=== PATIENT | female | born 1955 | race Caucasian/White ===

== ENCOUNTER → 2017-12-10 11:24 | Outpatient (CLI) | payer MEDICAID, SELFPAY ==
[2017-12-10 13:46] LABS: AST(SGOT) 18 U/L (15-37); Alanine Aminotransfer ALT/SGPT 34 U/L (13-56); Albumin, Serum 3.7 g/dL (3.2-5.0); Alkaline Phosphatase 77 U/L (45-117); Anion Gap 7 (5-15); BUN 18 mg/dL (7-18); BUN/Creat Ratio 34.9 RATIO (10-20); Calcium,Total 8.9 mg/dL (8.5-10.1); Chloride 105 mmol/L (98-107); Cholesterol 177 mg/dL (200); Creatinine, Serum 0.52 mg/dL (0.55-1.02); EST Glomerular Filtration Rate 129 mL/min (>60); Est Glom Filt Rate - Afr Amer 156 mL/min (>60); Globulin 3.6 g/dL (2.2-4.2); Glucose 98 mg/dL (74-106); High Density Lipoprotein 49 mg/dL; Potassium 4.1 mmol/L (3.5-5.1); Protein, Total 7.3 g/dL (6.4-8.2); Sodium Level 140 mmol/L (136-145); Triglycerides 140 mg/dL; Very Low Density Lipoprotein 28 mg/dL (5-40)
[2017-12-10 13:51] LABS: Hemoglobin A1c 6.2 % (4.2-6.3)
[2017-12-10 13:53] LABS: Vitamin D,25 Hydroxy 57.2 ng/mL (29.95-100.01)
== END ==
PROVIDERS: Family Provider Nurse Practitioner Family; PCP Nurse Practitioner Family; Visit Provider Nurse Practitioner Family
DX: E11.9 Type 2 diabetes mellitus without complications (principal); E78.5 Hyperlipidemia, unspecified; E55.9 Vitamin D deficiency, unspecified
CPT/HCPCS: 36415; 80053; 80061; 82306; 83036

== ENCOUNTER → 2018-06-07 16:06 | Outpatient (CLI) | payer MEDICAID, SELFPAY ==
[2018-06-10 14:26] LABS: HPV Reflexed? NOT INDICATED
== END ==
PROVIDERS: Visit Provider Obstetrics & Gynecology
DX: Z12.4 Encounter for screening for malignant neoplasm of cervix (principal)
CPT/HCPCS: 88175; G0145

== ENCOUNTER → 2018-06-20 12:44 | Outpatient (CLI) | payer MEDICAID, SELFPAY ==
--- NOTE | 2018-06-20 12:47 | BI_ITS ---
MAMMOGRAPHY - BILATERAL SCREENING REASON FOR EXAM: Female, 63 years old. Routine annual screening examination. PERTINENT HISTORY: Personal history of breast cancer. Prior right lumpectomy with radiation therapy. The patient complains of tenderness at the lumpectomy site. TECHNIQUE: Digital bilateral breast lizbet (3D mammographic acquisition) in the CC and MLO projections. 2-D mediolateral oblique (MLO) and craniocaudad (CC) views of both breasts were obtained. CAD: Full Field Digital Mammography with Computer Added Detection was performed. COMPARISON: Comparison is made with prior study dated June 17, 2017 and December 09, 2016. FINDINGS: Breast Composition: There are scattered areas of fibroglandular density. The patient is status post right lumpectomy with resultant postoperative scarring and architectural distortion in the deep upper portion of the right breast. There is evidence of overlying skin thickening. There has been essentially no change. A surgical clip is seen in the right axillary region. No other significant abnormalities are identified. There has been no significant change since the prior study. BI/SCREENING MAMM (CAD), BILAT IMPRESSION: Stable bilateral screening mammogram. Yearly follow-up mammogram recommended. (A) ASSESSMENT CATEGORY: BIRADS Category 2: Benign. A letter regarding these results will be sent to the patient by the facility within 30 days. Approximately 10% of breast cancers are not detected by mammography. A normal mammogram should not delay biopsy of a clinically suspicious abnormality. [id number] Electronically Signed: Jose Armando Cronin MD at 15:18 EDT Tel [phone], Service support ,
== END ==
PROVIDERS: Visit Provider Internal Medicine Hematology & Oncology
DX: Z12.31 Encounter for screening mammogram for malignant neoplasm of breast (principal)
CPT/HCPCS: 77063; 77067

== ENCOUNTER → 2018-09-16 12:56 | Outpatient (CLI) | payer MEDICAID, SELFPAY ==
[2018-09-16 14:31] LABS: Hemoglobin A1c 6.5 % (4.2-6.3)
[2018-09-16 14:47] LABS: ALB/GLOB Ratio 1.1 RATIO (0.9-2.4); AST(SGOT) 13 U/L (15-37); Alanine Aminotransfer ALT/SGPT 32 U/L (13-56); Albumin, Serum 3.8 g/dL (3.2-5.0); Alkaline Phosphatase 74 U/L (45-117); Anion Gap 7 (5-15); BUN 17 mg/dL (7-18); BUN/Creat Ratio 33.3 RATIO (10-20); Calcium,Total 8.6 mg/dL (8.5-10.1); Chloride 107 mmol/L (98-107); Cholesterol 179 mg/dL (200); Creatinine, Serum 0.51 mg/dL (0.55-1.02); EST Glomerular Filtration Rate 130 mL/min (>60); Est Glom Filt Rate - Afr Amer 157 mL/min (>60); Globulin 3.6 g/dL (2.2-4.2); Glucose 106 mg/dL (74-106); High Density Lipoprotein 48 mg/dL; Potassium 3.8 mmol/L (3.5-5.1); Protein, Total 7.4 g/dL (6.4-8.2); Sodium Level 141 mmol/L (136-145); Triglycerides 91 mg/dL; Very Low Density Lipoprotein 18 mg/dL (5-40)
[2018-09-16 14:49] LABS: Microalbumin,Random Urine 65.8 mg/L (NO RANGE EST.); Microalbumin:Creatinine Ratio 65.9 mg/g CRE (<30 mg/g CRE)
[2018-09-16 14:53] LABS: Vitamin D,25 Hydroxy 79.8 ng/mL (29.95-100.01)
== END ==
PROVIDERS: Referring Provider Nurse Practitioner Family; Visit Provider Nurse Practitioner Family
DX: E11.9 Type 2 diabetes mellitus without complications (principal); E78.5 Hyperlipidemia, unspecified; E55.9 Vitamin D deficiency, unspecified
CPT/HCPCS: 36415; 80053; 80061; 82043; 82306; 82570; 83036

== ENCOUNTER → 2019-03-14 10:16 | Outpatient (CLI) | payer MEDICAID, SELFPAY ==
[2018-09-22 12:59] VITALS: BMI 34.0
[2019-03-14 10:54] LABS: Absolute Neutrophil Count 4.1 X10^3/uL (2.0-7.7); Basophil# 0.02 X10^3/uL; Basophil% 0.3 % (0-1); Eosinophil# 0.05 X10^3/uL; Eosinophils% 0.8 % (0-5); Hemoglobin 15.5 g/dl (12.0-15.0); Mean Corpuscular Hgb 30.3 pg (27.0-32.0); Mean Corpuscular Volume 91.8 fL (81-99); Mean Platelet Vol. 9.5 fl (6.2-12.0); Monocyte# 0.52 X10^3/uL; Monocyte% 8.5 % (0-10); Neutrophil % 67.2 % (47-70); Platelet Count 257 K/mm3 (150-450); RBC Distribution Width SD 47.1 fl (35.1-43.9); Red Blood Count 5.12 M/mm3 (4.2-5.4); White Blood Count 6.1 K/mm3 (4.4-11.0)
[2019-03-14 10:55] LABS: POSITIVE COUNT NO; POSITIVE DIFFERENTIAL NO; POSITIVE MORPHOLOGY NO
[2019-03-14 11:27] LABS: ALB/GLOB Ratio 0.9 RATIO (0.9-2.4); AST(SGOT) 13 U/L (15-37); Alanine Aminotransfer ALT/SGPT 24 U/L (13-56); Albumin, Serum 3.5 g/dL (3.2-5.0); Alkaline Phosphatase 81 U/L (45-117); Anion Gap 8 (5-15); BUN 17 mg/dL (7-18); BUN/Creat Ratio 28.2 RATIO (10-20); Calcium,Total 8.7 mg/dL (8.5-10.1); Chloride 107 mmol/L (98-107); EST Glomerular Filtration Rate 107 mL/min (>60); Est Glom Filt Rate - Afr Amer 130 mL/min (>60); Globulin 3.7 g/dL (2.2-4.2); Glucose 118 mg/dL (74-106); Potassium 3.9 mmol/L (3.5-5.1); Protein, Total 7.2 g/dL (6.4-8.2); Sodium Level 141 mmol/L (136-145)
[2019-03-14 11:30] LABS: Vitamin D,25 Hydroxy 69.8 ng/mL (29.95-100.01)
== END ==
PROVIDERS: Family Provider Nurse Practitioner Family; PCP Nurse Practitioner Family; Referring Provider Nurse Practitioner Family; Visit Provider Nurse Practitioner Family
DX: E55.9 Vitamin D deficiency, unspecified (principal); I10 Essential (primary) hypertension
CPT/HCPCS: 36415; 80053; 82306; 85025

== ENCOUNTER → 2019-03-23 13:43 | Outpatient (CLI) | payer MEDICAID, SELFPAY ==
[2019-03-23 13:10] VITALS: BMI 32.8
--- NOTE | 2019-03-23 13:46 | US_ITS ---
STUDY: ULTRASOUND BREAST - RIGHT REASON FOR EXAM: Female, 63 years old. Pain in the right breast at the lumpectomy site.. TECHNIQUE: Axial and longitudinal images of the RIGHT breast were performed with a high resolution ultrasound transducer. COMPARISON: Comparison is made with prior mammogram done earlier today and prior ultrasound of the right breast dated June 17, 2017. FINDINGS: RIGHT Breast: There is a 1.9 cm x 2.5 cm x 1.5 cm irregular hypoechoic nodule with posterior acoustical shadowing at the lumpectomy site. This is essentially unchanged as compared to prior study and most likely represents postoperative scarring although a tissue diagnosis is recommended for further evaluation. Superior to the site of incision, there is a 5 mm x 5 mm x 4 mm well-defined hypoechoic nodule. This has the appearance of a small lymph node. US/Breast Limited Unilateral IMPRESSION: The area of pain corresponds to a 1.9 cm x 2.5 cm x 1.5 cm irregular hypoechoic nodule with posterior acoustical shadowing at the lumpectomy site. This is essentially unchanged although tissue diagnosis is recommended for further evaluation with a history of pain. ASSESSMENT CATEGORY: BIRADS Category 4: Suspicious - Biopsy Should Be Considered. A letter regarding these results will be sent to the patient by the facility within 30 days. Electronically Signed: Jose Armando Cronin, at 8:47 EDT , Service support ,
--- NOTE | 2019-03-23 13:46 | BI_ITS ---
MAMMOGRAPHY - UNILATERAL DIAGNOSTIC: RIGHT BREAST REASON FOR EXAM: Female, 63 years old. Pain and tenderness at the lumpectomy site of the right breast. PERTINENT HISTORY: Personal history of breast cancer. TECHNIQUE: Digital unilateral breast lizbet (3D mammographic acquisition) in the CC and MLO projections. 2-D mediolateral oblique (MLO) and craniocaudad (CC) views of both breasts were obtained. CAD: Full Field Digital Mammography with Computer Added Detection was performed. COMPARISON: Comparison is made with prior study dated June 20, 2018 and June 17, 2017. FINDINGS: Breast Composition: There are scattered areas of fibroglandular density. Stable postoperative scarring and architectural distortion in the deep upper midportion of the right breast. This corresponds to the lumpectomy site with overlying breast deformity and skin thickening. There has been essentially no change. No other significant abnormalities are identified. There has been no significant change since the prior study. BI/DIAG MAMM W/CAD, UNILAT IMPRESSION: Stable unilateral diagnostic mammogram. With the patient's history of a pain at the operative site, correlation with ultrasound is recommended. ASSESSMENT CATEGORY: BIRADS Category 0: Incomplete. Need additional imaging evaluation. A letter regarding these results will be sent to the patient by the facility within 30 days. Approximately 10% of breast cancers are not detected by mammography. A normal mammogram should not delay biopsy of a clinically suspicious abnormality. Electronically Signed: Jose Armando Cronin, at 15:43 EDT , Service support ,
== END ==
PROVIDERS: Family Provider Nurse Practitioner Family; PCP Nurse Practitioner Family; Referring Provider Internal Medicine Hematology & Oncology; Visit Provider Internal Medicine Hematology & Oncology
DX: C50.911 Malignant neoplasm of unspecified site of right female breast (principal); R52 Pain, unspecified; N64.59 Other signs and symptoms in breast
CPT/HCPCS: 76642; 77065

== ENCOUNTER → 2019-04-01 10:45 | Outpatient (CLI) | payer MEDICAID, SELFPAY ==
--- NOTE | 2019-04-01 08:30 | BRBX_PTH ---
PATIENT: DAVIN ARRIOLA LOC: [facility] U#:[id number] AGE/SX: 70/F ROOM: RE04/01/[address]: Dr. Aries Davidson MD : 1955 BED: DIS: SPEC #: [id number] RECD: 04/01/19 10:25 STATUS: [place] SIEGEL #: [id number] ARIELA: 04/01/19 08:[address]: Aries Davidson DEPT: SURGICAL PATHOLOGY RECD BY: Hammad Leonard ENTERED: 04/03/19 10:05 SP TYPE: BREAST BX FABIÁN DR: Ernesto Rubin, DIRECTOR OF NURSES REGISTRY-C Tissues: Right breast, NOS Procedures: Surgery Specimen Level IV HEADER OPERATION: Ultrasound guided needle core biopsy PRE-OP DIAGNOSIS: Abnormal mammogram of right breast, R92.8 TISSUE SUBMITTED: Right breast biopsy ISCHMEIC TIME: <1 minute FIXATION TIME: 32 hours MICROSCOPIC DIAGNOSIS Right breast, site of mammographic abnormality, ultrasound-guided needle core biopsy: Fibroadipose tissue with focal fat necrosis, associated chronic hemorrhage and hyalinizing stromal fibrosclerosis. No atypia or recurrent neoplasm found. CE:john 04/04/19 COMMENT Case has been reviewed in consultation with Dr. Maria who concurs with the above diagnosis. IDC:FA MICROSCOPIC DESCRIPTION Slides are reviewed. GROSS DESCRIPTION Received in fixative is one container labeled with the patient's name and designated right breast biopsy. The specimen consists of multiple pink-mack cylindrical core biopsy fragments measuring from 0.4 to 1 cm in length and 0.2 cm in diameter. The specimen is filtered and totally submitted in one cassette. / FA:john 04/03/19 TC:3 CPT: 22684
[2019-04-01 09:09] VITALS: BMI 31.9
== END ==
PROVIDERS: Family Provider Nurse Practitioner Family; PCP Nurse Practitioner Family; Referring Provider Surgery; Visit Provider Surgery
DX: R92.8 Other abnormal and inconclusive findings on diagnostic imaging of breast (principal)
CPT/HCPCS: 88305

== ENCOUNTER → 2019-04-19 09:48 | Outpatient (CLI) | payer MEDICAID, SELFPAY ==
[2019-04-01 09:09] VITALS: BMI 31.9
--- NOTE | 2019-04-19 09:52 | BI_ITS ---
MAMMOGRAPHY - UNILATERAL DIAGNOSTIC: RIGHT BREAST REASON FOR EXAM: Female, 64 years old. History of recent right ultrasound-guided breast biopsy. PERTINENT HISTORY: Personal history of breast cancer. TECHNIQUE: Mediolateral oblique and craniocaudad views of the right breast were obtained. CAD: Full Field Digital Mammography with Computer Added Detection was performed. COMPARISON: Comparison is made with prior mammogram dated March 23, 2019 and June 20, 2018. FINDINGS: Breast Composition: There are scattered areas of fibroglandular density. Stable postoperative scarring and architectural distortion in the deep upper midportion of the right breast. A tissue clip marker is seen at the biopsy site. No other significant abnormalities are identified. BI/DIAG MAMM W/CAD, UNILAT IMPRESSION: Stable unilateral diagnostic mammogram. One year follow-up mammogram recommended. (A) ASSESSMENT CATEGORY: BIRADS Category 2: Benign. A letter regarding these results will be sent to the patient by the facility within 30 days. Approximately 10% of breast cancers are not detected by mammography. A normal mammogram should not delay biopsy of a clinically suspicious abnormality. Electronically Signed: Jose Armando Cronin, at 13:45 EDT , Service support ,
== END ==
PROVIDERS: Family Provider Nurse Practitioner Family; PCP Nurse Practitioner Family; Referring Provider Surgery; Visit Provider Surgery
DX: R92.8 Other abnormal and inconclusive findings on diagnostic imaging of breast (principal)
CPT/HCPCS: 77065

== ENCOUNTER → 2019-06-29 11:23 | Outpatient (CLI) | payer MEDICAID, SELFPAY ==
[2019-04-01 09:09] VITALS: BMI 31.9
--- NOTE | 2019-06-29 11:33 | BI_ITS ---
MAMMOGRAPHY - BILATERAL SCREENING REASON FOR EXAM: Female, 64 years old. Routine annual screening examination. PERTINENT HISTORY: Personal history of breast cancer. Prior right lumpectomy with radiation therapy. Occasional right breast tenderness. TECHNIQUE: Digital bilateral breast milagro (3D mammographic acquisition) in the CC and MLO projections. 2-D mediolateral oblique (MLO) and craniocaudad (CC) views of both breasts were obtained. CAD: Full Field Digital Mammography with Computer Added Detection was performed. COMPARISON: Comparison is made with prior examination of April 19, 2019 and March 23, 2019. FINDINGS: Breast Composition: There are scattered areas of fibroglandular density. There are no dominant masses or suspicious calcifications. Stable architectural deformity and overlying skin thickening in the deep upper central portion of the right breast in keeping with prior lumpectomy surgery. Stable benign-appearing left axillary lymph node. No other significant abnormalities are identified. There has been no significant change since the prior study. BI/SCREEN MAMM (CAD) W/MILAGRO BILAT IMPRESSION: Stable bilateral screening mammogram. Yearly follow-up mammogram recommended. (A) ASSESSMENT CATEGORY: BIRADS Category 2: Benign. A letter regarding these results will be sent to the patient by the facility within 30 days. Approximately 10% of breast cancers are not detected by mammography. A normal mammogram should not delay biopsy of a clinically suspicious abnormality. [id number] Electronically Signed: Jose Armando Cronin, at 15:06 EDT , Service support ,
== END ==
PROVIDERS: Family Provider Nurse Practitioner Family; PCP Nurse Practitioner Family; Referring Provider Internal Medicine Hematology & Oncology; Visit Provider Internal Medicine Hematology & Oncology
DX: Z12.31 Encounter for screening mammogram for malignant neoplasm of breast (principal); Z85.3 Personal history of malignant neoplasm of breast
CPT/HCPCS: 77063; 77067

== ENCOUNTER → 2019-09-13 11:47 | Outpatient (CLI) | payer MEDICAID, SELFPAY ==
[2019-04-01 09:09] VITALS: BMI 31.9
[2019-09-13 12:55] LABS: Absolute Lymphocyte Count 1.36 X10^3/uL (0.83-4.51); Absolute Neutrophil Count 4.1 X10^3/uL (2.0-7.7); Basophil# 0.03 X10^3/uL; Basophil% 0.5 % (0-1); Eosinophil# 0.14 X10^3/uL; Eosinophils% 2.3 % (0-5); Hematocrit 46.4 % (37-47); Hemoglobin 14.8 g/dL (12.0-15.0); Lymphocyte # 1.36 X10^3/ul (4.0); Mean Corp Hgb Conc 31.9 g/dL (32-36); Mean Corpuscular Hgb 29.4 pg (27.0-32.0); Mean Corpuscular Volume 92.2 fL (81-99); Mean Platelet Vol. 9.4 fl (6.2-12.0); Monocyte# 0.56 X10^3/uL; Monocyte% 9.1 % (0-10); NRBC Flagged by Analyzer 0 % (0-5); Neutrophil # 4.06 X10^3/uL (2.7-7.7); Neutrophil % 65.6 % (47-70); Platelet Count 283 K/mm3 (150-450); RBC Distribution Width CV 13.6 % (11.6-14.6); RBC Distribution Width SD 46.4 fl (35.1-43.9); Red Blood Count 5.03 M/mm3 (4.2-5.4); White Blood Count 6.2 K/mm3 (4.4-11.0)
[2019-09-13 13:19] LABS: Hemoglobin A1c 6.4 % (4.2-6.3)
[2019-09-13 13:21] LABS: ALB/GLOB Ratio 1.1 RATIO (0.9-2.4); AST(SGOT) 14 U/L (15-37); Alanine Aminotransfer ALT/SGPT 31 U/L (13-56); Albumin, Serum 3.7 g/dL (3.2-5.0); Alkaline Phosphatase 81 U/L (45-117); Anion Gap 5 (5-15); BUN 17 mg/dL (7-18); BUN/Creat Ratio 31.6 RATIO (10-20); Calcium,Total 8.6 mg/dL (8.5-10.1); Chloride 107 mmol/L (98-107); Creatinine, Serum 0.54 mg/dL (0.55-1.02); EST Glomerular Filtration Rate 122 mL/min (>60); Est Glom Filt Rate - Afr Amer 148 mL/min (>60); Globulin 3.5 g/dL (2.2-4.2); Glucose 100 mg/dL (74-106); Potassium 4.1 mmol/L (3.5-5.1); Protein, Total 7.2 g/dL (6.4-8.2); Sodium Level 141 mmol/L (136-145)
[2019-09-13 13:23] LABS: Vitamin D,25 Hydroxy 67.7 ng/mL (29.95-100.01)
== END ==
PROVIDERS: Family Provider Nurse Practitioner Family; PCP Nurse Practitioner Family; Referring Provider Nurse Practitioner Family; Visit Provider Nurse Practitioner Family
DX: I10 Essential (primary) hypertension (principal); E11.9 Type 2 diabetes mellitus without complications; E55.9 Vitamin D deficiency, unspecified
CPT/HCPCS: 36415; 80053; 82306; 83036; 85025

== ENCOUNTER → 2020-03-29 11:57 | Outpatient (CLI) | payer MEDICAID, SELFPAY ==
[2019-10-26 14:38] VITALS: BMI 33.6
[2020-03-29 12:26] LABS: Hematocrit 48.7 % (37-47); Hemoglobin 15.4 g/dL (12.0-15.0); Mean Corp Hgb Conc 31.6 g/dL (32-36); Mean Corpuscular Hgb 29.7 pg (27.0-32.0); Mean Platelet Vol. 9.4 fl (6.2-12.0); Platelet Count 278 K/mm3 (150-450); RBC Distribution Width CV 13.2 % (11.6-14.6); RBC Distribution Width SD 45.2 fl (35.1-43.9); Red Blood Count 5.18 M/mm3 (4.2-5.4); White Blood Count 6.6 K/mm3 (4.4-11.0)
[2020-03-29 12:54] LABS: AST(SGOT) 15 U/L (15-37); Alanine Aminotransfer ALT/SGPT 47 U/L (13-56); Albumin, Serum 3.8 g/dL (3.2-5.0); Alkaline Phosphatase 80 U/L (45-117); Anion Gap 6 (5-15); BUN 19 mg/dL (7-18); BUN/Creat Ratio 30.4 RATIO (10-20); Chloride 105 mmol/L (98-107); Cholesterol 271 mg/dL (200); Creatinine, Serum 0.62 mg/dL (0.55-1.02); EST Glomerular Filtration Rate 103 mL/min (>60); Est Glom Filt Rate - Afr Amer 124 mL/min (>60); Globulin 3.8 g/dL (2.2-4.2); Glucose 113 mg/dL (74-106); High Density Lipoprotein 50 mg/dL; Potassium 4.3 mmol/L (3.5-5.1); Protein, Total 7.6 g/dL (6.4-8.2); Sodium Level 140 mmol/L (136-145); Triglycerides 142 mg/dL; Very Low Density Lipoprotein 28 mg/dL (5-40)
[2020-03-29 13:07] LABS: Hemoglobin A1c 6.1 % (3.8-5.6)
== END ==
PROVIDERS: PCP Nurse Practitioner Family; Referring Provider Nurse Practitioner Family; Visit Provider Nurse Practitioner Family
DX: I10 Essential (primary) hypertension (principal); E78.00 Pure hypercholesterolemia, unspecified; E11.9 Type 2 diabetes mellitus without complications; E55.9 Vitamin D deficiency, unspecified
CPT/HCPCS: 36415; 80053; 80061; 82306; 83036; 85027

== ENCOUNTER → 2020-07-02 09:36 | Outpatient (CLI) | payer MEDICAID, SELFPAY ==
[2020-04-25 14:13] VITALS: BMI 34.8
--- NOTE | 2020-07-02 09:37 | BI_ITS ---
MAMMOGRAPHY - BILATERAL SCREENING REASON FOR EXAM: Female, 65 years old. Routine annual screening examination. PERTINENT HISTORY: Personal history of breast cancer. Prior right lumpectomy and radiation therapy. TECHNIQUE: Digital bilateral breast milagro (3D mammographic acquisition) in the CC and MLO projections. 2-D mediolateral oblique (MLO) and craniocaudad (CC) views of both breasts were obtained. CAD: Full Field Digital Mammography with Computer Added Detection was performed. COMPARISON: Comparison is made with prior study dated 06/29/2019 and 04/19/2019. FINDINGS: Breast Composition: There are scattered areas of fibroglandular density. There are no dominant masses or suspicious calcifications. Stable architectural deformity overlying skin thickening within the deep upper lateral portion of the right breast. This is in keeping with the prior lumpectomy. Stable benign-appearing bilateral axillary lymph nodes. No other significant abnormalities are identified. There has been no significant change since the prior study. BI/SCREEN MAMM (CAD) W/MILAGRO BILAT IMPRESSION: Stable bilateral screening mammogram. Yearly follow-up mammogram recommended. (A) ASSESSMENT CATEGORY: BIRADS Category 2: Benign. A letter regarding these results will be sent to the patient by the facility within 30 days. Approximately 10% of breast cancers are not detected by mammography. A normal mammogram should not delay biopsy of a clinically suspicious abnormality. [id number] Electronically Signed: Jose Armando Cronin, at 12:15 EDT , Service support ,
--- NOTE | 2020-07-02 09:39 | BD_ITS ---
STUDY: DUAL ENERGY X-RAY ABSORPTIOMETRY / DXA REASON FOR EXAM: Female, 65 years old. 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 COMPARISON: None. FINDINGS: Lumbar Spine (L1-L4): g/cm2 (1.181) / T-score (0.1) / Z-score (1.6) Findings are suggestive of normal bone density with a low fracture risk. Left Femur Total: g/cm2 (1.139) / T-score (1.0) / Z-score (2.1) Left Femoral Neck: g/cm2 (1.059) / T-score (0.1) / Z-score (1.5) Right Femur Total: g/cm2 (1.160) / T-score (1.2) / Z-score (2.3) Right Femoral Neck: g/cm2 (1.171) / T-score (1.0) / Z-score (2.3) BD/Dexa Bone Density Study IMPRESSION: The patient is considered normal as outlined below according to World Tang Organization (WHO) criteria with a low fracture risk. Reference Information: The T-score is the number of standard deviations above or below the standard which is normal for young adults at their peak bone mineral density. The World Health Organization (WHO) interprets the T-scores as follows: Above -1 Normal bone density Between -1 and -2.5 Osteopenia Equal to / or below -2.5 Osteoporosis As a practical clinical guideline, osteopenia may be graded as follows: Mild -1 through -1.5 Moderate -1.6 through -2.0 Severe -2.1 through -2.4 The Z-score is the number of standard deviations above or below age-matched controls. A Z-score of less than -1.5 would be considered abnormal. References: 1. NIH Osteoporosis and Related Bone Diseases http://www.osteo.org 2. International Society for Clinical Densitometry http://www.iscd.org 3. National Osteoporosis Foundation http://www.nof.org Electronically Signed: Jose Armando Cronin, at 12:38 EDT , Service support ,
== END ==
PROVIDERS: PCP Nurse Practitioner Family; Referring Provider Internal Medicine Hematology & Oncology; Visit Provider Internal Medicine Hematology & Oncology
DX: Z12.31 Encounter for screening mammogram for malignant neoplasm of breast (principal); C50.911 Malignant neoplasm of unspecified site of right female breast; Z78.0 Asymptomatic menopausal state
CPT/HCPCS: 77063; 77067; 77080

== ENCOUNTER → 2020-08-09 10:33 | Outpatient (CLI) | payer MEDICAID, SELFPAY ==
[2020-07-25 13:57] VITALS: BMI 36.5
== END ==
PROVIDERS: PCP Nurse Practitioner Family; Referring Provider Nurse Practitioner Family; Visit Provider Nurse Practitioner Family
DX: J06.9 Acute upper respiratory infection, unspecified (principal); Z20.828 Contact with and (suspected) exposure to other viral communicable diseases
CPT/HCPCS: 87633; 87635; C9803; U0003

== ENCOUNTER → 2020-10-15 13:28 | Outpatient (CLI) | payer MEDICAID, SELFPAY ==
[2020-07-25 13:57] VITALS: BMI 36.5
[2020-10-15 14:34] LABS: Hemoglobin 15.1 g/dL (12.0-15.0); Mean Corp Hgb Conc 32.1 g/dL (32-36); Mean Corpuscular Hgb 29.3 pg (27.0-32.0); Mean Corpuscular Volume 91.3 fL (81-99); Mean Platelet Vol. 9.6 fl (6.2-12.0); Platelet Count 256 K/mm3 (150-450); RBC Distribution Width CV 13.8 % (11.6-14.6); Red Blood Count 5.15 M/mm3 (4.2-5.4); White Blood Count 5.7 K/mm3 (4.4-11.0)
[2020-10-15 15:01] LABS: ALB/GLOB Ratio 1.1 RATIO (0.9-2.4); AST(SGOT) 18 U/L (15-37); Alanine Aminotransfer ALT/SGPT 45 U/L (13-56); Albumin, Serum 3.8 g/dL (3.2-5.0); Alkaline Phosphatase 85 U/L (45-117); Anion Gap 7 (5-15); BUN 12 mg/dL (7-18); BUN/Creat Ratio 18.2 RATIO (10-20); Calcium,Total 8.9 mg/dL (8.5-10.1); Chloride 107 mmol/L (98-107); Cholesterol 288 mg/dL (200); Creatinine, Serum 0.66 mg/dL (0.55-1.02); EST Glomerular Filtration Rate 96 mL/min (>60); Est Glom Filt Rate - Afr Amer 116 mL/min (>60); Globulin 3.6 g/dL (2.2-4.2); Glucose 109 mg/dL (74-106); High Density Lipoprotein 45 mg/dL; Protein, Total 7.4 g/dL (6.4-8.2); Sodium Level 141 mmol/L (136-145); Triglycerides 196 mg/dL; Very Low Density Lipoprotein 39 mg/dL (5-40)
[2020-10-15 15:04] LABS: Vitamin D,25 Hydroxy 52.8 ng/mL
[2020-10-15 15:11] LABS: Hemoglobin A1c 6.1 % (3.8-5.6)
== END ==
PROVIDERS: PCP Nurse Practitioner Family; Referring Provider Nurse Practitioner Family; Visit Provider Nurse Practitioner Family
DX: E11.9 Type 2 diabetes mellitus without complications (principal); E78.5 Hyperlipidemia, unspecified; E55.9 Vitamin D deficiency, unspecified
CPT/HCPCS: 36415; 80053; 80061; 82306; 83036; 85027

== ENCOUNTER → 2020-12-10 10:49 | Outpatient (CLI) | payer MEDICAID, SELFPAY ==
[2020-07-25 13:57] VITALS: BMI 36.5
--- NOTE | 2020-12-10 10:54 | RAD_ITS ---
STUDY: X-RAY - LUMBAR SPINE REASON FOR EXAM: Female, 65 years old. CHRONIC HIGH BACK PAIN, EXACERBATE PAIN TECHNIQUE: 3 view(s) of the lumbar spine were obtained. COMPARISON: None FINDINGS: Normal lumbar lordosis. There is a mild dextroscoliosis of the lumbar spine. Grade 1 anterior listhesis of L4 on L5 most likely secondary to facet joint osteoarthritis. There is multilevel endplate spondylosis of the lumbar vertebrae. There is multi-level degenerative disc disease with multi-level disc space narrowing. The soft tissue structures are unremarkable. RAD/Lumbar Spine 2 or 3 Views IMPRESSION: Degenerative changes of the spine, as detailed above. Electronically Signed: Jose Armando Cronin MD at 13:48 EST , Service support ,
--- NOTE | 2020-12-10 10:55 | RAD_ITS ---
STUDY: X-RAY - THORACIC SPINE REASON FOR EXAM: Female, 65 years old. CHRONIC HIGH BACK PAIN, EXACERBATE PAIN TECHNIQUE: 2 view(s) of the thoracic spine were obtained. COMPARISON: None. FINDINGS: Normal kyphosis of the thoracic spine. There is no substantial scoliosis. There is multilevel endplate spondylosis of the thoracic vertebrae. There is multilevel disc space narrowing of the thoracic spine. The soft tissue structures are unremarkable. RAD/Thoracic Spine 2 Views IMPRESSION: Multilevel spondylosis and disc space narrowing. Electronically Signed: Jose Armando Cronin MD at 13:48 EST , Service support ,
--- NOTE | 2020-12-10 10:55 | RAD_ITS ---
STUDY: X-RAY - CERVICAL SPINE REASON FOR EXAM: Female, 65 years old. NECK PAIN, MODERATE NECK PAIN TECHNIQUE: 3 view(s) of the cervical spine were obtained. COMPARISON: None FINDINGS: Normal anterior atlantoaxial articulation. Normal odontoid process. Normal cervical lordosis. Normal vertebral bodies and endplates. Normal disc space heights. Normal visualized intervertebral neuroforamina. The soft tissue structures are unremarkable. RAD/Cerv Spine 2 or 3 Views IMPRESSION: Normal x-ray examination of the visualized cervical spine. Electronically Signed: Jose Armando Cronin MD at 13:47 EST , Service support ,
== END ==
PROVIDERS: PCP Nurse Practitioner Family; Referring Provider Nurse Practitioner Family; Visit Provider Nurse Practitioner Family
DX: M54.2 Cervicalgia (principal); M54.9 Dorsalgia, unspecified
CPT/HCPCS: 72040; 72070; 72100

== ENCOUNTER → 2021-04-21 12:15 | Outpatient (CLI) | payer MEDICAID, SELFPAY ==
[2021-01-16 13:50] VITALS: BMI 35.6
[2021-04-21 14:03] LABS: Hematocrit 44.4 % (37-47); Hemoglobin 14.3 g/dL (12.0-15.0); Mean Corp Hgb Conc 32.2 g/dL (32-36); Mean Corpuscular Hgb 30.4 pg (27.0-32.0); Mean Corpuscular Volume 94.5 fL (81-99); Mean Platelet Vol. 9.6 fl (6.2-12.0); Platelet Count 264 K/mm3 (150-450); RBC Distribution Width CV 12.9 % (11.6-14.6); RBC Distribution Width SD 44.7 fl (35.1-43.9); White Blood Count 4.7 K/mm3 (4.4-11.0)
[2021-04-21 14:44] LABS: ALB/GLOB Ratio 1.2 RATIO (0.9-2.4); AST(SGOT) 22 U/L (15-37); Alanine Aminotransfer ALT/SGPT 49 U/L (13-56); Albumin, Serum 3.7 g/dL (3.2-5.0); Alkaline Phosphatase 73 U/L (45-117); Anion Gap 5 (5-15); BUN 18 mg/dL (7-18); BUN/Creat Ratio 29.1 RATIO (10-20); Calcium,Total 8.6 mg/dL (8.5-10.1); Chloride 105 mmol/L (98-107); Cholesterol 302 mg/dL (200); Creatinine, Serum 0.62 mg/dL (0.55-1.02); EST Glomerular Filtration Rate 103 mL/min (>60); Est Glom Filt Rate - Afr Amer 125 mL/min (>60); Globulin 3.2 g/dL (2.2-4.2); Glucose 119 mg/dL (74-106); High Density Lipoprotein 39 mg/dL; Potassium 4.1 mmol/L (3.5-5.1); Protein, Total 6.9 g/dL (6.4-8.2); Sodium Level 139 mmol/L (136-145); Triglycerides 267 mg/dL; Very Low Density Lipoprotein 53 mg/dL (5-40)
[2021-04-21 15:43] LABS: Vitamin D,25 Hydroxy 55.9 ng/mL
== END ==
PROVIDERS: PCP Nurse Practitioner Family; Referring Provider Nurse Practitioner Family; Visit Provider Nurse Practitioner Family
DX: E11.9 Type 2 diabetes mellitus without complications (principal); I10 Essential (primary) hypertension; E78.5 Hyperlipidemia, unspecified; E55.9 Vitamin D deficiency, unspecified
CPT/HCPCS: 36415; 80053; 80061; 82306; 83036; 85027

== ENCOUNTER → 2021-07-04 12:39 | Outpatient (CLI) | payer MEDICAID, SELFPAY ==
[2021-01-16 13:50] VITALS: BMI 35.6
--- NOTE | 2021-07-04 13:00 | BI_ITS ---
MAMMOGRAPHY - BILATERAL SCREENING REASON FOR EXAM: Female, 66 years old. Routine annual screening examination. PERTINENT HISTORY: Personal history of breast cancer. Prior right lumpectomy with radiation therapy. TECHNIQUE: Digital bilateral breast milagro (3D mammographic acquisition) in the CC and MLO projections. 2-D mediolateral oblique (MLO) and craniocaudad (CC) views of both breasts were obtained. CAD: Full Field Digital Mammography with Computer Added Detection was performed. COMPARISON: Comparison is made with prior study 07/02/2020 and 06/29/2000. FINDINGS: Breast Composition: There are scattered areas of fibroglandular density. The patient is status post lumpectomy in the deep upper lateral aspect of the right breast with postoperative scarring in the breast deformity and skin thickening. This is unchanged. Focal increased density in the upper central portion of the left breast at the 12 o''clock position. Correlation with ultrasound is recommended. No other significant abnormalities are identified. BI/SCRN MAMM (CAD)W/MILAGRO BILAT IMPRESSION: Stable appearance of the right breast. Increased density at the 12 o''clock position of the left breast. Correlation with ultrasound is recommended. ASSESSMENT CATEGORY: BIRADS Category 0: Incomplete. Need additional imaging evaluation. A letter regarding these results will be sent to the patient by the facility within 30 days. Approximately 10% of breast cancers are not detected by mammography. A normal mammogram should not delay biopsy of a clinically suspicious abnormality. [id number] Electronically Signed: Jose Armando Cronin MD at 13:51 EDT , Service support ,
== END ==
PROVIDERS: PCP Nurse Practitioner Family; Referring Provider Internal Medicine Hematology & Oncology; Visit Provider Internal Medicine Hematology & Oncology
DX: Z12.31 Encounter for screening mammogram for malignant neoplasm of breast (principal)
CPT/HCPCS: 77063; 77067

== ENCOUNTER → 2021-07-10 10:43 | Outpatient (CLI) | payer MEDICAID, SELFPAY ==
--- NOTE | 2021-07-10 10:45 | US_ITS ---
STUDY: ULTRASOUND BREAST - LEFT REASON FOR EXAM: Female, 66 years old. Abnormal screening mammogram. TECHNIQUE: Axial and longitudinal images of the LEFT breast were performed with a high resolution ultrasound transducer. # OF IMAGES: 27 COMPARISON: Comparison is made with prior mammogram dated 07/04/2021. FINDINGS: LEFT Breast: The upper midportion of the left breast was examined by ultrasound. There is evidence of fibroglandular tissue. No sonographic abnormality is seen. US/Breast Limited Unilateral IMPRESSION: No sonographic abnormality is seen. ASSESSMENT CATEGORY: BIRADS Category 2: Benign. A letter regarding these results will be sent to the patient by the facility within 30 days. Electronically Signed: Jose Armando Cronin MD at 12:39 EDT , Service support ,
== END ==
PROVIDERS: PCP Nurse Practitioner Family; Referring Provider Internal Medicine Hematology & Oncology; Visit Provider Internal Medicine Hematology & Oncology
DX: R92.8 Other abnormal and inconclusive findings on diagnostic imaging of breast (principal)
CPT/HCPCS: 76642

== ENCOUNTER → 2021-09-10 15:28 | Outpatient (CLI) | payer MEDICAID, SELFPAY | PROVIDERS: PCP Nurse Practitioner Family; Visit Provider Physician Assistant | DX: Z11.52 Encounter for screening for COVID-19 (principal) | CPT/HCPCS: 87635; U0005; U0003 ==

== ENCOUNTER 2021-12-23 12:22 | Outpatient (CLI) | payer MEDICAID, SELFPAY ==
[2021-12-23 13:15] LABS: Hematocrit 43.1 % (37-47); Hemoglobin 13.6 g/dL (12.0-15.0); Mean Corp Hgb Conc 31.6 g/dL (32-36); Mean Corpuscular Hgb 29.4 pg (27.0-32.0); Mean Corpuscular Volume 93.3 fL (81-99); Mean Platelet Vol. 9.2 fl (6.2-12.0); Platelet Count 268 K/mm3 (150-450); RBC Distribution Width CV 13.4 % (11.6-14.6); RBC Distribution Width SD 45.5 fl (35.1-43.9); Red Blood Count 4.62 M/mm3 (4.2-5.4); White Blood Count 4.8 K/mm3 (4.4-11.0)
[2021-12-23 13:46] LABS: Vitamin D,25 Hydroxy 56.1 ng/mL
[2021-12-23 13:47] LABS: ALB/GLOB Ratio 1.1 RATIO (0.9-2.4); AST(SGOT) 19 U/L (15-37); Alanine Aminotransfer ALT/SGPT 44 U/L (13-56); Albumin, Serum 3.7 g/dL (3.2-5.0); Alkaline Phosphatase 67 U/L (45-117); Anion Gap 5 (5-15); BUN 25 mg/dL (7-18); Calcium,Total 9.2 mg/dL (8.5-10.1); Chloride 107 mmol/L (98-107); Cholesterol 279 mg/dL (200); EST Glomerular Filtration Rate 90 mL/min (>60); Est Glom Filt Rate - Afr Amer 109 mL/min (>60); Globulin 3.3 g/dL (2.2-4.2); Glucose 139 mg/dL (74-106); High Density Lipoprotein 32 mg/dL; Potassium 4.2 mmol/L (3.5-5.1); Sodium Level 140 mmol/L (136-145); Triglycerides 318 mg/dL; Very Low Density Lipoprotein 64 mg/dL (5-40)
[2021-12-23 13:57] LABS: Hemoglobin A1c 6.5 % (3.8-5.6)
== END 2021-12-23 23:59 | disposition home or self-care (01) ==
PROVIDERS: PCP Nurse Practitioner Family; Referring Provider Nurse Practitioner Family; Visit Provider Nurse Practitioner Family
DX: E78.5 Hyperlipidemia, unspecified (principal); E11.9 Type 2 diabetes mellitus without complications; I10 Essential (primary) hypertension; E55.9 Vitamin D deficiency, unspecified
CPT/HCPCS: 36415; 80053; 80061; 82306; 83036; 85027

== ENCOUNTER → 2022-02-09 | Outpatient (CLI) | payer MEDICAID, SELFPAY ==
--- NOTE | 2022-02-09 13:28 | MRI_ITS ---
EXAM: MR LUMBAR SPINE WITHOUT INTRAVENOUS CONTRAST CLINICAL INDICATION: low back pain, leg pain TECHNIQUE: Multiplanar and multisequence MR images of the lumbar spine without intravenous contrast. Magnetic field strength 1.5 T. This report was created using [employer] report [employer] technology. COMPARISON: 09/28/2005 FINDINGS: VERTEBRAE: See below. SPINAL CORD: Unremarkable. Normal position and signal intensity of the conus medullaris. SOFT TISSUES: Unremarkable. DISCS/SPINAL CANAL/NEURAL FORAMINA: L1-L2: Central disc extrusion with disc material extending superiorly behind the L1 vertebral body. The extruded disc measures 2 cm craniocaudal by 1.2 cm transverse by 0.5 cm AP. No spinal stenosis or nerve root impingement. No foraminal stenosis. Bilateral facet arthropathy. L2-L3: Moderate disc space narrowing. Mild generalized disc bulge with left lateral recess and left neural foraminal disc protrusion causing left neural foraminal stenosis. This may impinge upon the left L2 nerve root. Bilateral facet arthropathy. L3-L4: Moderate generalized disc bulge. Moderate left neural foraminal narrowing due to facet arthropathy and ligamentum flavum buckling. Marked bilateral facet arthropathy. Normal spinal canal and lateral recesses. L4-L5: Disc space narrowing and moderate generalized disc bulge. No spinal canal, foraminal, or lateral recess stenosis. Marked bilateral facet arthropathy. L5-S1: Slight left paracentral disc protrusion without spinal canal or foraminal stenosis. MRI/Spine Lumbar (Routine) IMPRESSION: 1. L1-L2 central disc extrusion extending superiorly behind the L1 vertebral body. The extruded disc measures 2 x 1.2 x 0.5 cm. No significant spinal stenosis or nerve root impingement. 2. L2-L3 mild generalized disc bulge with left lateral recess and left neural foraminal disc protrusion causing left neural foraminal stenosis. This may impinge upon the left L2 nerve root. 3. Moderate generalized disc bulge L3-L4 with mild left neural foraminal narrowing due to disc bulge, facet arthropathy and ligamentum flavum buckling. 4. Slight left paracentral disc protrusion at L5-S1 without spinal canal or foraminal stenosis. 5. Extensive bilateral multilevel facet arthropathy. Electronically Signed: Jakob Tapia MD at 5:27 EDT ,
== END | disposition home or self-care (01) ==
PROVIDERS: PCP Nurse Practitioner Family
DX: M54.16 Radiculopathy, lumbar region (principal)
CPT/HCPCS: 72148

== ENCOUNTER → 2022-06-22 | Outpatient (CLI) | payer OTHER, MEDICAID, SELFPAY ==
[2022-06-22 14:54] LABS: Hemoglobin A1c 7.1 % (3.8-5.6)
[2022-06-22 15:03] LABS: Vitamin D,25 Hydroxy 48.6 ng/mL
[2022-06-22 15:16] LABS: AST(SGOT) 15 U/L (15-37); Alanine Aminotransfer ALT/SGPT 36 U/L (13-56); Albumin, Serum 3.8 g/dL (3.2-5.0); Alkaline Phosphatase 79 U/L (45-117); Anion Gap 6 (5-15); BUN 13 mg/dL (7-18); BUN/Creat Ratio 18.7 RATIO (10-20); Calcium,Total 9.5 mg/dL (8.5-10.1); Chloride 105 mmol/L (98-107); Cholesterol 283 mg/dL (200); EST Glomerular Filtration Rate 90 mL/min (>60); Est Glom Filt Rate - Afr Amer 109 mL/min (>60); Globulin 3.7 g/dL (2.2-4.2); Glucose 142 mg/dL (74-106); High Density Lipoprotein 40 mg/dL; Potassium 4.4 mmol/L (3.5-5.1); Protein, Total 7.5 g/dL (6.4-8.2); Sodium Level 140 mmol/L (136-145); Triglycerides 346 mg/dL; Very Low Density Lipoprotein 69 mg/dL (5-40)
== END | disposition home or self-care (01) ==
LOC: LAB 14:04
PROVIDERS: PCP Nurse Practitioner Family; Visit Provider Nurse Practitioner Family
DX: E11.9 Type 2 diabetes mellitus without complications (principal); E78.5 Hyperlipidemia, unspecified; I10 Essential (primary) hypertension; E55.9 Vitamin D deficiency, unspecified
CPT/HCPCS: 36415; 80053; 80061; 82306; 83036

== ENCOUNTER → 2022-07-08 | Outpatient (CLI) | payer OTHER, SELFPAY ==
--- NOTE | 2022-07-08 13:54 | BI_ITS ---
MAMMOGRAPHY - BILATERAL SCREENING REASON FOR EXAM: Female, 67 years old. Routine annual screening examination. PERTINENT HISTORY: Personal history of breast cancer. Prior right lumpectomy. Radiation therapy. TECHNIQUE: Digital bilateral breast milagro (3D mammographic acquisition) in the CC and MLO projections. 2-D mediolateral oblique (MLO) and craniocaudad (CC) views of both breasts were obtained. CAD: Full Field Digital Mammography with Computer Added Detection was performed. COMPARISON: Comparison is made with prior study 07/04/2021. FINDINGS: Breast Composition: There are scattered areas of fibroglandular density. There are no dominant masses or suspicious calcifications. Once again, this evidence of architectural distortion and scarring with overlying skin thickening in the upper lateral portion of the right breast in keeping with prior lumpectomy. Stable appearance of the dystrophic calcifications. Stable asymmetrical breast tissue in the upper-outer quadrant of the left breast No other significant abnormalities are identified. There has been no significant change since the prior study. BI/SCRN MAMM (CAD)W/MILAGRO BILAT IMPRESSION: Stable bilateral screening mammogram. Yearly follow-up mammogram recommended. (A) ASSESSMENT CATEGORY: BIRADS Category 2: Benign. A letter regarding these results will be sent to the patient by the facility within 30 days. Approximately 10% of breast cancers are not detected by mammography. A normal mammogram should not delay biopsy of a clinically suspicious abnormality. [id number] Electronically Signed: Jose Armando Cronin MD at 15:16 EDT ,
== END | disposition home or self-care (01) ==
LOC: OPBI 13:53
PROVIDERS: PCP Nurse Practitioner Family; Visit Provider Internal Medicine Hematology & Oncology
DX: Z12.31 Encounter for screening mammogram for malignant neoplasm of breast (principal)
CPT/HCPCS: 77063; 77067

== ENCOUNTER 2022-08-09 15:35 | Emergency (ER) | payer MEDICARE, MEDICAID, SELFPAY ==
[2022-08-09 15:35] VITALS: BP 130/71; PULSE 69; RESP 18; TEMP 36.7; O2SAT 96; BMI 36.2
[2022-08-09 16:09] VITALS: BP 128/75; PULSE 74; RESP 16; O2SAT 97
--- NOTE | 2022-08-09 16:33 | ED.VIS.GI ---
HPI HPI - GI History of Present Illness Chief Complaint: Abd Pain Abdominal Pain/Flank Pain Onset: Today Context: Sudden Onset Timing: Intermittent and Lasts (10-15 minutes) Quality: Sharp and - (Tightness) Location: Epigastric, RUQ and LUQ Worsened by: Nothing Relieved by: Nothing Nausea/Vomiting/Emesis GI Symptom: Negative for Nausea or Vomiting Diarrhea/Melena/Hematochezia GI Symptom: Negative for Diarrhea, Melena or Hematochezia Associated Symptoms Associated Symptoms: Negative for Dysuria, Frequency or Hematuria Narrative Narrative: Patient presents with abdominal pain that began today. Patient states it began suddenly. Patient states she had just walked out of the grocery store and was putting groceries into her car when she had sudden pain across her upper abdomen. Patient describes it as sharp and tightness. Patient states nothing made it better nothing made it worse. Patient states that it resolved approximately 10 to 15 minutes later. Patient states the pain caused her to have some shortness of breath. Patient denies any radiation of the pain into her chest. Patient states the pain did radiate into her neck. Patient denies any back pain. 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 Depression Diabetes 1.5, managed as type 2 GERD (gastroesophageal reflux disease) Headache Hiatal hernia IBS (irritable bowel syndrome) Lumbar stenosis Migraine Nasal septal deviation RLS (restless legs syndrome) Vitamin D deficiency Home Medications montelukast 10 mg tablet 10 mg PO DAILY 09/28/14 [History Last Taken Unknown] omeprazole 40 mg capsule,delayed release 40 mg PO DAILY 09/28/14 [History Last Taken 05/01/15 06:00] Coq10 100 mg PO DAILY 05/19/18 [History Last Taken Unknown] flaxseed oil 1,000 mg capsule 2,000 mg PO DAILY 05/19/18 [History Last Taken Unknown] garlic 1,000 mg capsule 1,000 mg PO DAILY 05/19/18 [History Last Taken Unknown] niacin 500 mg tablet,extended release 24 hr 500 mg PO DAILY 05/19/18 [History Last Taken Unknown] vitamin B complex-folic acid 0.4 mg tablet 0.4 mg PO DAILY 05/19/18 [History Last Taken Unknown] alpha lipoic acid 300 mg capsule 300 mg PO DAILY 01/16/21 [History Last Taken Unknown] biotin 1 mg tablet 10 mg PO DAILY 01/16/21 [History Last Taken Unknown] cetirizine 10 mg tablet 10 mg PO DAILY 01/16/21 [History Last Taken Unknown] cyclobenzaprine 5 mg tablet 5 mg PO DAILY 01/16/21 [History Last Taken Unknown] dicyclomine 10 mg capsule 10 mg PO TIDAC 01/16/21 [History Last Taken Unknown] magnesium oxide 250 mg PO DAILY 01/16/21 [History Last Taken Unknown] malic acid (bulk) 500 gm miscellaneous DAILY 01/16/21 [History Last Taken Unknown] milk thistle 175 mg tablet 175 mg PO DAILY 01/16/21 [History Last Taken Unknown] pramipexole 0.125 mg tablet 0.125 mg PO 01/16/21 [History Last Taken Unknown] sertraline 50 mg tablet 50 mg PO 01/16/21 [History Last Taken Unknown] valsartan 80 mg tablet 80 mg PO 01/16/21 [History Last Taken Unknown] meloxicam 15 mg tablet 15 mg PO DAILY Pain #30 tabs 03/04/22 [Rx Last Taken Unknown] Allergy/AdvReac Type Severity Reaction Status Date / Time Penicillins AdvReac Severe Rash Verified 08/09/22 16:05 Sulfa (Sulfonamide AdvReac Severe Rash Verified 08/09/22 16:05 Antibiotics) metformin AdvReac Upset Verified 08/09/22 16:05 Stomach Family History Mother CVA (cerebral vascular accident) Rheumatoid arthritis Diabetes Hypertension Heart disease Sister Diabetes Hypertension Heart disease Surgical History History of section History of lumpectomy of right breast History of tonsillectomy History of tubal ligation Hx of right breast biopsy Social History Smoking Status: Former smoker second hand exposure: No alcohol intake: never substance use type: does not use caffeine: Yes what type of physical activity do you participate in: walking frequency: 1-2 times per week ROS ROS ED Constitutional Constitutional ED: Denies chills or fever(s) Eyes Eyes: Denies blurry vision or change in vision ENT ENT ED: Denies rhinorrhea or sore throat Cardiovascular Cardiovascular: Denies chest pain or palpitations Respiratory/Chest Respiratory/Chest: Reports dyspnea; Denies cough Gastrointestinal Gastrointestinal: Reports abdominal pain; Denies nausea or vomiting Genitourinary Genitourinary ED: Denies dysuria or hematuria Musculoskeletal Musculoskeletal: Reports neck pain; Denies back pain Integumentary Denies abscess or rash Neurologic Neurologic: Denies headache(s) or weakness Allergic/Immunologic Allergic/Immunologic ED: Denies mouth swelling or urticaria EXAM Physical Exam Const Vital Signs: 08/09/22 15:35 08/09/22 16:09 Temperature 98.1 F Temperature Source Oral Pulse Rate 69 74 Respiratory Rate 18 16 Blood Pressure 130/71 H 128/75 H Blood Pressure Mean 90 92 Pulse Ox 96 97 Oxygen Delivery Method Room Air Room Air Positive well nourished and well developed General Appearance ED: well developed HEENT Reports moist mucous membranes Neck supple and no JVD Resp normal respiratory effort and clear to auscultation bilaterally Cardio regular rate, regular rhythm and no murmurs GI normal to inspection, nondistended, normoactive bowel sounds and non-tender Palpation: soft Extremity normal to inspection General Extremety ED: Negative for edema or tenderness General Extremity: Negative for edema Neuro oriented x3, CN's II-XII intact bilaterally and no sensory deficits noted Sensorium / Orientation: alert Motor Exam: strength 5/5 throughout Psych mental status grossly normal Skin no rashes or lesions noted MDM MDM MDM Narrative Medical decision making narrative: Acute abdominal x-rays were obtained. There are 6 views. On my interpretation, there is no acute process. There is no perforation or obstruction. There is no acute cardiopulmonary process. Radiologist also interpreted the x-rays and agrees. CBC was within normal limits. Comprehensive metabolic profile was essentially within normal limits. Lipase was normal. Urinalysis does not show any evidence of urinary tract infection. Patient is feeling better on reevaluation. Patient was advised of her findings. Patient was instructed to follow-up with her primary care physician for further evaluation in 5 to 7 days. Patient understood and was agreeable with the plan. All questions were answered. Lab Data Attestation: I reviewed the patient's lab results. Labs: Laboratory Results - last 24 hr 08/09/22 08/09/22 08/09/22 16:45 16:45 17:00 WBC 8.4 RBC 4.64 Hgb 14.0 Hct 42.8 MCV 92.2 MCH 30.2 MCHC 32.7 RDW Std Deviation 45.1 H RDW Coeff of Melody 13.2 Plt Count 284 MPV 9.1 Immature Gran % (Auto) 0.200 Neut % (Auto) 78.6 H Lymph % (Auto) 14.0 L Mcmullen % (Auto) 5.7 Eos % (Auto) 1.0 Baso % (Auto) 0.5 Absolute Neuts (auto) 6.6 Absolute Lymphs (auto) 1.18 Nucleated RBC % 0 Sodium 140 Potassium 4.2 Chloride 108 H Carbon Dioxide 25.0 Anion Gap 7 BUN 18 Creatinine 0.59 Estim Creat Clear Calc 85.54 Est GFR (MDRD) Af Amer 131 Est GFR (MDRD) Non-Af 108 BUN/Creatinine Ratio 30.5 H Glucose 195 H Calcium 9.2 Total Bilirubin 0.50 AST 76 H ALT 67 H Alkaline Phosphatase 72 Total Protein 7.1 Albumin 3.6 Globulin 3.5 Albumin/Globulin Ratio 1.0 Lipase 145 Urine Color Yellow Urine Clarity Clear Urine pH 7.0 Ur Specific [place] 1.010 Urine Protein 15 H Urine Glucose (UA) 1000 H Urine Ketones Negative Urine Occult Blood Negative Urine Nitrite Negative Urine Bilirubin Negative Urine Urobilinogen Normal Ur Leukocyte Esterase Negative Urine RBC 0 SEEN Urine WBC 0 SEEN Ur Squamous Epith Cells 0-5 SEEN Urine Bacteria 0 SEEN Urine Mucus 0 SEEN Radiography Diagnostic Testing: Clinical Impression(s) from Imaging Studies Acute Abdomen Series 08/09/22 17:10 IMPRESSION: No acute findings in the chest, abdomen or pelvis. Electronically Signed: Zachary aGlan MD at 17:31 EDT Reading Location ID and State: [facility] / [place] , Service support , Discharge Plan Triage Chief Complaint: Abd Pain ED Provider: Sarwat Braga Dx/Rx/DC Orders Clinical Impression: Abdominal pain, IBS (irritable bowel syndrome), Fibromyalgia Instructions: ED Abdominal Pain Unkn Cause Fem Prescriptions: No Action omeprazole 40 MG capsule 40 mg PO DAILY Label Comments: acid reflux montelukast 10 MG tablet 10 mg PO DAILY Label Comments: asthma had toda 05/02 niacin 500 MG tablet extended release 24 hr 500 mg PO DAILY garlic 1,000 MG capsule 1,000 mg PO DAILY flaxseed oil 1,000 MG capsule 2,000 mg PO DAILY vitamin B complex-folic acid 0.4 MG tablet 0.4 mg PO DAILY Coq10 100 mg PO DAILY cetirizine 10 MG tablet 10 mg PO DAILY milk thistle 175 MG tablet 175 mg PO DAILY valsartan 80 MG tablet 80 mg PO pramipexole 0.125 MG tablet 0.125 mg PO malic acid (bulk) 500 GM powder 500 gm MC DAILY sertraline 50 MG tablet 50 mg PO dicyclomine 10 MG capsule 10 mg PO TIDAC magnesium oxide 250 MG tablet 250 mg PO DAILY cyclobenzaprine 5 MG tablet 5 mg PO DAILY biotin 1 MG tablet 10 mg PO DAILY alpha lipoic acid 300 MG capsule 300 mg PO DAILY meloxicam 15 mg tablet 15 mg PO DAILY Qty: 30 0RF Primary Care Provider: Ernesto Rubin NP Referrals: Ernesto Rubin NP, [employer]TING [employer]INE [employer] [Primary Care Provider] - 3-5 Days Disposition Disposition: Home, Self Care
[2022-08-09 17:08] LABS: Bacteria 0 SEEN /hpf (None Seen); Mucous, Urine 0 SEEN /hpf (<or=2+); Red Blood Cells-Urine 0 SEEN /hpf (0-5); White Blood Cells 0 SEEN /hpf (0-5)
[2022-08-09 17:09] LABS: Absolute Lymphocyte Count 1.18 X10^3/uL (0.83-4.51); Absolute Neutrophil Count 6.6 X10^3/uL (2.0-7.7); Basophil# 0.04 X10^3/uL; Basophil% 0.5 % (0-1); Eosinophil# 0.08 X10^3/uL; Hematocrit 42.8 % (37-47); Lymphocyte # 1.18 X10^3/ul (0.83-4.51); Mean Corp Hgb Conc 32.7 g/dL (32-36); Mean Corpuscular Hgb 30.2 pg (27.0-32.0); Mean Corpuscular Volume 92.2 fL (81-99); Mean Platelet Vol. 9.1 fl (6.2-12.0); Monocyte# 0.48 X10^3/uL; Monocyte% 5.7 % (0-10); NRBC Flagged by Analyzer 0 % (0-5); Neutrophil # 6.62 X10^3/uL (2.7-7.7); Neutrophil % 78.6 % (47-70); Platelet Count 284 K/mm3 (150-450); RBC Distribution Width CV 13.2 % (11.6-14.6); RBC Distribution Width SD 45.1 fl (35.1-43.9); Red Blood Count 4.64 M/mm3 (4.2-5.4); White Blood Count 8.4 K/mm3 (4.4-11.0)
[2022-08-09 17:10] LABS: Color, Urine Yellow (Yellow); Glucose, Dipstick 1000 mg/dl (Normal); Ketone-Dipstick Negative (Negative); Leukocyte Esterase-Dipstick Negative /ul (Negative); Nitrite-Dipstick Negative (Negative); Occult Blood-Urine Negative /ul (Negative); Protein-Dipstick 15 mg/dl (Negative); Urine Bilirubin Dipstick Negative (Negative); Urine Clarity Clear (Clear); Urine Urobilinogen Normal (Normal)
--- NOTE | 2022-08-09 17:10 | RAD_ITS ---
EXAM: XR ABDOMEN, 2 VIEWS AND XR CHEST, 1 VIEW CLINICAL INDICATION: Abdominal pain TECHNIQUE: Frontal view of the chest, frontal view of the abdomen/pelvis and upright or decubitus view of the abdomen. This report was created using [employer] report generation technology. COMPARISON: None. FINDINGS: CHEST: LUNGS AND PLEURAL SPACES: Unremarkable. No consolidation or edema. No pneumothorax. No effusion. HEART: Unremarkable. Cardiac silhouette not enlarged. MEDIASTINUM: Central airways and mediastinal contour are unremarkable. ABDOMEN: INTRAPERITONEAL SPACE: No free air. GASTROINTESTINAL TRACT: Unremarkable. Non-obstructive. No bowel or stomach distention. ORGANS: Unremarkable as visualized. No organomegaly. No abnormal calcifications. TUBES, LINES AND DEVICES: None. BONES/JOINTS: Degenerative findings in the thoracic and lumbar spine. SOFT TISSUES: No acute findings. OTHER FINDINGS: There is an elevated right hemidiaphragm. RAD/Acute Abdomen Inc Chest IMPRESSION: No acute findings in the chest, abdomen or pelvis. Electronically Signed: Zachary Galan MD at 17:31 EDT ,
[2022-08-09 17:21] LABS: Squamous Epithelial Cells - UA 0-5 SEEN /hpf (5-10)
[2022-08-09 17:22] LABS: AST(SGOT) 76 U/L (15-37); Alanine Aminotransfer ALT/SGPT 67 U/L (13-56); Albumin, Serum 3.6 g/dL (3.2-5.0); Alkaline Phosphatase 72 U/L (45-117); Anion Gap 7 (5-15); BUN 18 mg/dL (7-18); BUN/Creat Ratio 30.5 RATIO (10-20); Calcium,Total 9.2 mg/dL (8.5-10.1); Chloride 108 mmol/L (98-107); Creatinine, Serum 0.59 mg/dL (0.55-1.02); EST Glomerular Filtration Rate 108 mL/min (>60); Est Glom Filt Rate - Afr Amer 131 mL/min (>60); Estimated Creatinine Clearance 85.54 ml/min; Globulin 3.5 g/dL (2.2-4.2); Glucose 195 mg/dL (74-106); Lipase 145 U/L (73-393); Potassium 4.2 mmol/L (3.5-5.1); Protein, Total 7.1 g/dL (6.4-8.2); Sodium Level 140 mmol/L (136-145)
== END 2022-08-09 18:58 | disposition home or self-care (01) ==
PROVIDERS: Emergency Provider Emergency Medicine; PCP Nurse Practitioner Family; Visit Provider Emergency Medicine
DX: R10.9 Unspecified abdominal pain (principal); K58.0 Irritable bowel syndrome with diarrhea; M79.7 Fibromyalgia; Z87.891 Personal history of nicotine dependence
CPT/HCPCS: 74022; 80053; 81001; 83690; 85025; 99285

== ENCOUNTER → 2022-12-23 | Outpatient (CLI) | payer MEDICARE, MEDICAID, SELFPAY ==
[2022-12-23 13:01] LABS: Vitamin D,25 Hydroxy 70.2 ng/mL
[2022-12-23 13:10] LABS: Microalbumin,Random Urine 28.4 mg/L (NO RANGE EST.)
[2022-12-23 13:11] LABS: ALB/GLOB Ratio 1.1 RATIO (0.9-2.4); AST(SGOT) 14 U/L (15-37); Alanine Aminotransfer ALT/SGPT 30 U/L (13-56); Albumin, Serum 3.8 g/dL (3.2-5.0); Alkaline Phosphatase 70 U/L (45-117); Anion Gap 9 (5-15); BUN 28 mg/dL (7-18); BUN/Creat Ratio 42.6 RATIO (10-20); Calcium,Total 9.4 mg/dL (8.5-10.1); Chloride 102 mmol/L (98-107); Cholesterol 277 mg/dL (200); Creatinine, Serum 0.66 mg/dL (0.55-1.02); EST Glomerular Filtration Rate 96 mL/min (>60); Est Glom Filt Rate - Afr Amer 116 mL/min (>60); Globulin 3.6 g/dL (2.2-4.2); Glucose 138 mg/dL (74-106); High Density Lipoprotein 49 mg/dL; Potassium 4.3 mmol/L (3.5-5.1); Protein, Total 7.4 g/dL (6.4-8.2); Sodium Level 137 mmol/L (136-145); Triglycerides 173 mg/dL; Very Low Density Lipoprotein 35 mg/dL (5-40)
[2022-12-23 13:38] LABS: Hemoglobin A1c 6.7 % (3.8-5.6)
== END | disposition home or self-care (01) ==
LOC: LAB 11:41
PROVIDERS: PCP Nurse Practitioner Family; Referring Provider Nurse Practitioner Family; Visit Provider Nurse Practitioner Family
DX: E11.9 Type 2 diabetes mellitus without complications (principal); I10 Essential (primary) hypertension; E78.5 Hyperlipidemia, unspecified; E55.9 Vitamin D deficiency, unspecified; K21.9 Gastro-esophageal reflux disease without esophagitis
CPT/HCPCS: 36415; 80053; 80061; 82043; 82306; 83036

== ENCOUNTER → 2023-02-15 | Outpatient (CLI) | payer MEDICARE, MEDICAID, SELFPAY ==
--- NOTE | 2023-02-15 10:57 | US_ITS ---
STUDY: ABDOMINAL ULTRASOUND - RIGHT UPPER QUADRANT REASON FOR VISIT: Female, 67 years old RUQ ABD PAIN TECHNIQUE: Ultrasound evaluation of the right upper quadrant was performed with real-time and static coello-scale imaging. TECHNICAL QUALITY: Adequate. COMPARISON: None. FINDINGS: Liver: The liver is enlarged and measures 18.3 cm. There is increased echogenicity consistent with fatty infiltration. Focal fatty sparing is seen adjacent to the gallbladder fossa. The bile ducts are within normal limits. There is hepatic color flow. The direction of portal flow is hepatopetal. There is no demonstrated mass lesion. Gallbladder: Normal distended gallbladder. The gallbladder wall measures 1.0 mm. There is a negative sonographic Lindsey''s sign. There is no pericholecystic fluid. There are multiple echogenic structures within the gallbladder, consistent with multiple gallstones. Common Bile Duct (C.B.D.): The common bile duct measures 4.1 mm. Pancreas: Normal size of the head, body and tail of the pancreas. There is normal echogenicity of the pancreas. There is no demonstrated pancreatic mass or cyst. Right Kidney: Normal size of the right kidney. The right kidney measures 10.9 cm x 5.7 cm x 4.6 cm. Normal renal cortex. The right cortex measures 1.1 cm. There is no demonstrated renal mass or cyst. There is no right hydronephrosis. US/Abdomen Limited IMPRESSION: Mild hepatomegaly and fatty infiltration of the liver with focal fatty sparing. Multiple gallstones. Electronically Signed: Jose Armando Cronin MD at 14:32 EDT ,
== END | disposition home or self-care (01) ==
LOC: US 10:56
PROVIDERS: PCP Nurse Practitioner Family; Referring Provider Nurse Practitioner Family; Visit Provider Nurse Practitioner Family
DX: R10.11 Right upper quadrant pain (principal)
CPT/HCPCS: 76705

== ENCOUNTER → 2023-04-30 | Outpatient (CLI) | payer MEDICARE, MEDICAID, SELFPAY ==
[2023-04-30 10:46] LABS: Microalbumin,Random Urine 71.6 mg/L (NO RANGE EST.); Microalbumin:Creatinine Ratio 36.3 mg/g CRE (<30 mg/g CRE)
[2023-04-30 11:14] LABS: Vitamin D,25 Hydroxy 81.4 ng/mL
[2023-04-30 11:25] LABS: Hemoglobin A1c 6.6 % (3.8-5.6)
[2023-04-30 11:32] LABS: AST(SGOT) 10 U/L (15-37); Alanine Aminotransfer ALT/SGPT 26 U/L (13-56); Albumin, Serum 3.6 g/dL (3.2-5.0); Alkaline Phosphatase 63 U/L (45-117); Anion Gap 5 (5-15); BUN 22 mg/dL (7-18); BUN/Creat Ratio 31.3 RATIO (10-20); Chloride 109 mmol/L (98-107); Cholesterol 197 mg/dL (200); EST Glomerular Filtration Rate 89 mL/min (>60); Est Glom Filt Rate - Afr Amer 107 mL/min (>60); Globulin 3.5 g/dL (2.2-4.2); Glucose 148 mg/dL (74-106); High Density Lipoprotein 48 mg/dL; Potassium 4.2 mmol/L (3.5-5.1); Protein, Total 7.1 g/dL (6.4-8.2); Sodium Level 140 mmol/L (136-145); Triglycerides 151 mg/dL; Very Low Density Lipoprotein 30 mg/dL (5-40)
== END | disposition home or self-care (01) ==
PROVIDERS: PCP Nurse Practitioner Family; Referring Provider Nurse Practitioner Family; Visit Provider Nurse Practitioner Family
DX: I10 Essential (primary) hypertension (principal); E11.9 Type 2 diabetes mellitus without complications; E78.5 Hyperlipidemia, unspecified; E55.9 Vitamin D deficiency, unspecified
CPT/HCPCS: 36415; 80053; 80061; 82043; 82306; 82570; 83036

== ENCOUNTER → 2023-07-12 | Outpatient (CLI) | payer MEDICARE, MEDICAID, SELFPAY ==
--- NOTE | 2023-07-12 13:09 | BI_ITS ---
MAMMOGRAPHY - BILATERAL SCREENING REASON FOR EXAM: Female, 68 years old. Routine annual screening examination. PERTINENT HISTORY: Personal history of breast cancer. Prior right lumpectomy and radiation treatment. TECHNIQUE: Digital bilateral breast milagro (3D mammographic acquisition) in the CC and MLO projections. 2-D mediolateral oblique (MLO) and craniocaudad (CC) views of both breasts were obtained. CAD: Full Field Digital Mammography with Computer Added Detection was performed. COMPARISON: Comparison is made with prior study dated July 08, 2022 and July 04, 2021. FINDINGS: Breast Composition: There are scattered areas of fibroglandular density. There are no dominant masses or suspicious calcifications. The patient is status post lumpectomy in the deep upper lateral aspect of the right breast. A tissue clip marker is seen within the surgical site. Since prior study, there has been an increase in the calcifications within the operative site most likely representing dystrophic calcification. There is deformity of the overlying breast. No other significant abnormalities are identified. There has been no significant change since the prior study. BI/SCRN MAMM (CAD)W/MILAGRO BILAT IMPRESSION: Stable bilateral screening mammogram. Yearly follow-up mammogram recommended. (A) ASSESSMENT CATEGORY: BIRADS Category 2: Benign. A letter regarding these results will be sent to the patient by the facility within 30 days. Approximately 10% of breast cancers are not detected by mammography. A normal mammogram should not delay biopsy of a clinically suspicious abnormality. [id number] Electronically Signed: Jose Armadno Cronin MD at 14:33 EDT ,
== END | disposition home or self-care (01) ==
LOC: OPBI 13:08
PROVIDERS: PCP Nurse Practitioner Family; Referring Provider Internal Medicine Hematology & Oncology; Visit Provider Internal Medicine Hematology & Oncology
DX: Z12.31 Encounter for screening mammogram for malignant neoplasm of breast (principal)
CPT/HCPCS: 77063; 77067

== ENCOUNTER → 2023-09-09 | Outpatient (CLI) | payer MEDICARE, MEDICAID, SELFPAY ==
--- NOTE | 2023-09-09 15:03 | MRI_ITS ---
STUDY: MRI CERVICAL SPINE WITHOUT CONTRAST REASON FOR EXAM: Female, 68 years old. pain TECHNIQUE: Standardized fat and water weighted pulse sequences were obtained in the sagittal and axial planes. COMPARISON: Cervical spine radiograph August 18, 2023 FINDINGS: Normal foramen magnum and brainstem-cervical cord junction. Normal craniovertebral junction. Normal anterior atlantoaxial articulation. Normal odontoid process. Normal cervical lordosis. Normal vertebral bodies and posterior osseous elements. C2-3: Normal endplates. Normal disc height, signal and morphology. Normal central canal and intervertebral neural foramina. C3-4: Normal endplates. Normal disc height, signal and morphology. Normal central canal and intervertebral neural foramina. C4-5: Normal endplates. Normal disc height, signal and morphology. Normal central canal and intervertebral neural foramina. C5-6: Normal endplates. Normal disc height, signal and morphology. Normal central canal and narrowed intervertebral neural foramina. C6-7: Normal endplates. Normal disc height, signal and morphology. Normal central canal and narrowed intervertebral neural foramina. C7-T1: Normal endplates. Normal disc height, signal and morphology. Normal central canal and intervertebral neural foramina. Normal cervical cord. Normal visualized soft tissue structures. MRI/Spine Cervical (Routine) IMPRESSION: Normal unenhanced MR examination of the cervical spine. Electronically Signed: Rodney Hu MD at 0:09 EST ,
== END | disposition home or self-care (01) ==
LOC: MRI 15:00
PROVIDERS: PCP Nurse Practitioner Family; Visit Provider Orthopaedic Surgery
DX: M54.12 Radiculopathy, cervical region (principal)
CPT/HCPCS: 72141

== ENCOUNTER → 2023-10-19 | Outpatient (CLI) | payer MEDICARE, MEDICAID, SELFPAY ==
--- NOTE | 2023-10-19 06:59 | ECHOCS_ITS ---
Reason For Study: SOB Procedure This was a 2D Doppler, Color Flow transthoracic echocardiogram. The study was technically difficult. The study was technically limited. Due to body habitus and poor accoustic windows. Contrast injection was performed. Exam performed in department. Left Ventricle Normal LV size. Left ventricular systolic function is normal. The estimated ejection fraction is 60 %. No regional wall motion abnormalities noted. Right Ventricle Normal RV size. Normal systolic function. Atria Normal left atrium. Normal right atrium. Mitral Valve Mitral valve not well visualized. Tricuspid Valve The tricuspid valve is not well visualized. Mild tricuspid valve insufficiency. Pulmonary artery systolic pressure is 34 mmHg. Aortic Valve The aortic valve is not well visualized. Pulmonic Valve The pulmonic valve is not well visualized. Great Vessels Normal aortic root. The pulmonary artery is normal size. Normal inferior vena cava. Pericardium/Pleural No pericardial effusion. Medication Diluted definity 2.5ml given slow IV push to enhance endocardial definition. MMode/2D Measurements & Calculations LVIDd: 4.5 cm IVSd: 1.0 cm Ao root diam: 2.5 cm LVIDs: 3.0 cm LVPWd: 1.0 cm RVDd: 3.3 cm FS: 32.4 % LAV(MOD-bp): 59.9 ml LVAd ap4: 26.7 cm2 LVAd ap2: 21.9 cm2 LAV(MOD-bp) Indexed: 30.3 ml/m2 LVLd ap4: 7.5 cm LVLd ap2: 7.4 cm LAV(MOD-sp2): 58.9 ml EDV(MOD-sp4): 78.9 ml EDV(MOD-sp2): 55.4 ml LAV(MOD-sp4): 58.9 ml EDV(sp4-el): 80.6 ml EDV(sp2-el): 55.2 ml LVAs ap4: 16.1 cm2 LVAs ap2: 13.7 cm2 LVLs ap4: 5.6 cm LVLs ap2: 5.7 cm ESV(MOD-sp4): 36.8 ml ESV(MOD-sp2): 27.1 ml ESV(sp4-el): 39.0 ml ESV(sp2-el): 28.0 ml EF(MOD-sp4): 53.4 % EF(MOD-sp2): 51.0 % EF(sp4-el): 51.6 % SV(MOD-sp4): 42.1 ml SV(MOD-sp2): 28.3 ml SV(sp4-el): 41.6 ml LA A4 area: 21.1 cm2 LA dimension(2D): 3.4 cm RA A4 area: 12.3 cm2 TAPSE: 2.3 cm Doppler Measurements & Calculations Lat Peak E' Victoriano: 10.6 cm/sec Med Peak E' Victoriano: 8.3 cm/sec MV V2 max: 103.0 cm/sec MV max P.2 mmHg MV V2 mean: 61.5 cm/sec MV mean P.8 mmHg MV V2 VTI: 30.3 cm Ao V2 max: 152.1 cm/sec LV V1 max: 117.1 cm/sec PA V2 max: 92.1 cm/sec Ao max P.3 mmHg LV V1 max P.5 mmHg PA V2 mean: 71.0 cm/sec Ao V2 mean: 107.4 cm/sec LV V1 mean P.0 mmHg Ao mean P.2 mmHg LV V1 mean: 82.3 cm/sec Ao V2 VTI: 36.9 cm LV V1 VTI: 26.0 cm AV (velocity ratio): 0.70 TR max victoriano: 279.2 cm/sec TR max P.2 mmHg ECHO/Echo Complete W/ Contrast Interpretation Summary Normal LV size. Left ventricular systolic function is normal. The estimated ejection fraction is 60 %. Pulmonary artery systolic pressure is 34 mmHg. Contrast injection was performed. The study was technically difficult. Ordering Physician: Ernesto Rubin Referring Physician: Maria C Mcmahon Performed By: Felicitas Israel RDCS, RVT
--- OUTSIDE RECORDS SUMMARY | 2023-10-19 07:01 | XMS RPT_ITS | CCD ---
Author Name Unknown Address [address] [place] [address] Organization [facility] Care Team Providers Care Hop Sorter Name Role Phone Ernesto Rubin CNP Primary Care Provider 1( [phone] JAMAR BEACH CNP Attending Unavailable ERNESTO RUBIN CNP Primary Care Unavaila ble Scottie GAXIOLA, Ernesto Nagy Primary Care Provider 1( [phone] ERNESTO RUBIN Primary Care Unavailable JUAN JOSE HURTADO Attending Unavailable JUAN JOSE HURTADO Admitting Unavailable MINA PETIT Admitting Unavailabl e ERNESTO RUBIN Primary Care Unavailable ERNESTO WAY Consulting Unavailable MINA PETIT Attending Unavailabl e ERNESTO RUBIN Primary Care Unavailable JUAN JOSE HURTADO Attending Unavailable JUAN JOSE HURTADO Admitting Unavailable ARIES DAVIDSON Attending Unavailable ERNESTO RUBIN Referring Unavailable ERNESTO RUBIN Primary Care Unavailable NAKIA OTERO Referring Unavailable ERNESTO RUBIN Primary Care Unavailable LAURA TOURE Attending Unavailable ERNESTO RUBIN Primary Care Unavailable LISANDRO ESCOBAR Referring Unavailable ERNESTO RUBIN Primary Care Unavailable ARIES DAVIDSON P Referring Unavailable ERNESTO RUBIN Primary Care Unavailable ARIES DAVIDSON Referring Unavailable ERNESTO RUBIN Primary Care Unavailable DEN FAIRBANKS Attending Unavailable JUAN JOSE HURTADO Referring Unavailable ERNESTO RUBIN Primary Care Unavailable RICHMOND COBIAN Attending Unavailable JUAN JOSE HURTADO Referring Unavailable ERNESTO RUBIN Primary Care Unavailable DEN FAIRBANKS Attending Unavailable ERNESTO RUBIN Primary Care Unavailable Allergies Allergy Classification Reported Allergen(s) Allergy Type Date of Onset Reaction(s) Facility (20 sources) Penicillin G; Translations: [PENICILLIN G] Drug Allergy 05-14-2011 [facility] (20 sources) Sulfonamides (Antibiotic); Translations: [SULFA (SULFONAMIDE ANTIBIOTICS)] Drug Allergy 05-14-2011 Hives [facility] (18 sources) metFORMIN; Translations: [METFORMIN] Drug Allergy 11-16-2022 GI Upset [facility] Medications Current Medications Medication Drug Class(es) Dates Sig (Normalized) Sig (Original) gabapentin 300 mg oral capsule (2 sources) Anti-epileptic Agent Start: 11-16-2022 End: 02-14-2023 take 1 capsule by mouth three times daily gabapentin (NEURONTIN) 300 mg capsule Take 1 capsule by mouth three times daily for 90 days. 90 capsule 2 11/16/2022 02/14/2023 Active Completed/Discontinued Medications Medication Drug Class(es) Dates Sig (Normalized) Sig (Original) ,D,-LIMONENE FLAVOR, BULK, MISC (11 sources) ,D,-LIMONENE FLA VOR, BULK, MISC acetaminophen 650 mg oral tablet (9 sources) take 650 mg by mouth twice daily acetaminophen (TYLENOL ARTHRITIS ORAL) Take 650 mg by mouth twice daily. 0 Active Problems Active Problems Problem Classification Problem Date Documented Da te Episodic/Chronic Abdominal pain (1 source) Right upper quadrant pain; Translations: [RUQ pain] Onset: 3 Episodic Asthma (9 sources) Mild intermittent asthma; Translations: [Mild intermittent asthma, uncomplicated] Onset: 3 Chronic Biliary tract disease (1 source) Calculus of gallbladder with acute and chronic cholecystitis without obstruction; Translations: [Calculus of gallbladder with acute on chronic cholecystitis without obstruction] Onset: 3 Episodic Cancer of breast (20 sources) Intraductal carcinoma in situ of breast; Translations: [Intraductal carcinoma in situ of unspecified breast] Onset: 5 06-10-2015 Chronic Diabetes mellitus without complication (10 sources) Type 2 diabetes mellitus without complication; Translations: [Type 2 diabetes mellitus without complications] Onset: 3 Chronic Esophageal disorders (9 sources) Gastroesophageal reflux disease; Translations: [Gastro-esophageal reflux disease without esophagitis] Onset: 3 Chronic Headache; including migraine (20 sources) Migraine; Translations: [Migraine, unspecified, not intractable, without status migrainosus] Onset: 3 01-05-2013 Chronic Mood disorders (20 sources) Depressive disorder; Translations: [Depression] Onset: 3 01-05-2013 Chronic Nutritional deficiencies (20 sources) Vitamin D deficiency; Translations: [Vitamin D deficiency, unspecified] Onset: 5 06-10-2015 Chronic Other gastrointestinal disorders (9 sources) Irritable bowel syndrome with diarrhea; Translations: [Irritable bowel syndrome with diarrhea] Onset: 3 Chronic Other hereditary and degenerative nervous system conditions (9 sources) Restless legs; Translations: [Restless legs syndrome] Onset: 3 Chronic Other nutritional; endocrine; and metabolic disorders (9 sources) Severe obesity; Translations: [Morbid (severe) obesity due to excess calories] Onset: 3 Chronic Spondylosis; intervertebral disc disorders; other back problems (20 sources) Lumbar spondylosis; Translations: [Spondylosis without myelopathy or radiculopathy, lumbar region] Onset: 1 Chronic Past or Other Problems Problem Classification Problem Date Documented Date Episodic/Chronic Other connective tissue disease (20 sources) Fibromyalgia; Translations: [Fibromyalgia] Onset: 06-18-2011 06-18-2011 Episodic Other lower respiratory disease (6 sources) Respiratory distress; Translations: [Acute respiratory distress] Onset: 04-14-2023 04-14-2023 Episodic Other screening for suspected conditions (not mental disorders or infectious disease) (7 sources) Electrocardiogram abnormal; Translations: [Abnormal electrocardiogram [ECG] [EKG]] Onset: 04-12-2023 04-12-2023 Episodic Other upper respiratory disease (20 sources) Deviated nasal septum; Translations: [Deviated nasal septum] Onset: 08-08-2012 08-08-2012 Episodic Residual codes; unclassified (20 sources) Estrogen receptor positive tumor; Translations: [Estrogen receptor positive status [ER+]] Onset: 06-10-2015 06-10-2015 Episodic Respiratory failure; insufficiency; arrest (adult) (6 sources) Acute respiratory failure; Translations: [Acute respiratory failure with hypoxia] Onset: 04-14-2023 04-14-2023 Episodic Screening and history of mental health and substance abuse codes (9 sources) Ex-smoker; Translations: [Personal history of nicotine dependence] Onset: 04-07-2023 Episodic Spondylosis; intervertebral disc disorders; other back problems (20 sources) Lumbar radiculopathy; Translations: [Radiculopathy, lumbar region] Onset: 06-18-2011 Episodic Results Test Name Value Interpretation Reference Range Facil ity Vital Signs Date Time Vital Sign Value Performing Clinician Chidi goodson 04-07-2023 10:45-0400 Body height 163.8 cm Pacc 1 Work Phone: [facility] 04-07-2023 10:45-0400 Body temperature 98.01 [degF] Pacc 1 Work Phone: [facility] 04-07-2023 10:45-0400 Body weight 94.35 kg Pacc 1 Work Phone: [facility] 04-07-2023 10:45-0400 Diastolic blood pressure 70 mm[Hg] Pacc 1 Work Phone: [facility] 04-07-2023 10:45-0400 Heart rate 64 /min Pacc 1 Work Phone: [facility] 04-07-2023 10:45-0400 Respiratory rate 18 /min Pacc 1 Work Phone: [facility] 04-07-2023 10:45-0400 SaO2% (BldA) [Mass fraction] 95 % Pacc 1 Work Phone: [facility] 04-07-2023 10:45-0400 Systolic blood pressure 102 mm[Hg] Pacc 1 Work Phone: [facility] 12-10-2022 14:58-0500 SaO2% (BldA) [Mass fraction] 99 % Den Fairbanks APRN.CNP Work Phone: [facility] 11-16-2022 14:45-0500 Body height 162.6 cm Richmond Cobian MD Work Phone: [facility] 11-16-2022 14:45-0500 Body weight 93.62 kg Richmond Cobian MD Work Phone: [facility] 11-16-2022 14:45-0500 Diastolic blood pressure 73 mm[Hg] Richmond Cobian MD Work Phone: [facility] 11-16-2022 14:45-0500 Heart rate 72 /min Richmond Cobian MD Work Phone: [facility] 11-16-2022 14:45-0500 SaO2% (BldA) [Mass fraction] 96 % Richmond Cobian MD Work Phone: [facility] 11-16-2022 14:45-0500 Systolic blood pressure 133 mm[Hg] Richmond Cobian MD Work Phone: [facility] 09-01-2022 12:00-0500 Diastolic blood pressure 66 mm[Hg] Juan Jose Hurtado MD Work Phone: [facility] 09-01-2022 12:00-0500 Respiratory rate 17 /min Juan Jose Hurtado MD Work Phone: [facility] 09-01-2022 12:00-0500 SaO2% (BldA) [Mass fraction] 95 % Juan Jose Hurtado MD Work Phone: [facility] 09-01-2022 12:00-0500 Systolic blood pressure 112 mm[Hg] Juan Jose Hurtado MD Work Phone: [facility] 09-01-2022 11:37-0500 Heart rate 66 /min Juan Jose Hurtado MD Work Phone: [facility] 09-01-2022 10:12-0500 Body temperature 97.5 [degF] Juan Jose Hurtado MD Work Phone: [facility] 06-10-2022 11:47-0400 Body weight 98.88 kg Den Fairbanks BARREL CAP SETTER.GEOLOGY PROFESSOR Work Phone: [facility] 06-10-2022 11:47-0400 Heart rate 72 /min Den Fairbanks BARREL CAP SETTER.GEOLOGY PROFESSOR Work Phone: [facility] 06-10-2022 11:47-0400 SaO2% (BldA) [Mass fraction] 98 % Den Faribanks BARREL CAP SETTER.GEOLOGY PROFESSOR Work Phone: [facility] 02-26-2022 13:53-0400 Body weight 96.62 kg Den Fairbanks APRN.GEOLOGY PROFESSOR Work Phone: [facility] Encounters Encounter Date Encounter Type Care Provider Facility Start: 09-20-2023 Refill Den GIL.GEOLOGY PROFESSOR Work Phone: Pain Management Procedures Date Procedure Procedure Detail Performing Clinician Start: 04-14-2023 History of cholecystectomy Status post laparoscopic cholecystectomy Michelle Watts RN Start: 04-07-2023 Ecg routine ecg w/least 12 lds i&r only [facility] Provider Start: 09-01-2022 Fluoroscopy up to 1 hour physician/qhp time Juan Jose Hurtado MD Work Phone: Start: 09-01-2022 Gluc bld gluc mntr dev cleared fda spec home use Juan Jose Hurtado MD Work Phone: Start: 08-13-2022 Fluoroscopy up to 1 hour physician/qhp time Juan Jose Hurtado MD Work Phone: Start: 04-22-2011 Mammography Den Fairbanks APRN.GEOLOGY PROFESSOR Work Phone: Plan of Treatment Date Care Activity Detail Author Start: 04-01-2026 DIABETES SCREEN DIABETES SCREEN [facility] Start: 06-01-2024 Urine microalbumin profile DTaP,Tdap,Td Vaccine (2 - Td or Tdap) [facility] Start: 10-01-2023 Hemoglobin A1c/Hemoglobin.total in Blood HBA1C [facility] Start: 06-11-2023 Influenza vaccination [facility] Start: 10-11-2022 ADVANCE DIRECTIVE DISCUSSION ADVANCE DIRECTIVE DISCUSSION [facility] Start: 06-11-2022 Influenza vaccination [facility] Start: 2022 ADVANCE DIRECTIVE DISCUSSION ADVANCE DIRECTIVE DISCUSSION [facility] Start: 2022 BONE DENSITY BONE DENSITY [facility] Start: 2022 Bone Density Screening Bone Density Screening [facility] Start: 2022 PNEUMOCOCCAL: 65+ (1 - PCV) PNEUMOCOCCAL: 65+ (1 - PCV) [facility] Start: 02-17-2022 LIPID SCREEN LIPID SCREEN [facility] Start: 02-18-2020 DIABETES SCREEN DIABETES SCREEN [facility] Start: 02-17-2018 Hepatitis B surface antibody level LDL CHOLESTEROL [facility] Start: 2017 Hepatitis B Vaccine (1 of 3 - Risk 3-dose series) Hepatitis B Vaccine (1 of 3 - Risk 3-dose series) [facility] Start: 2017 RSV Vaccine (1 - 1-dose 60+ series) RSV Vaccine (1 - 1-dose 60+ series) [facility] Start: 05-11-2016 PAP TESTING PAP TESTING [facility] Start: 04-22-2012 Mammography [facility] Start: 2007 SHINGRIX VACCINE (1 of 2) SHINGRIX VACCINE (1 of 2) [facility] Start: 2002 COLOGUARD (FIT-DNA) COLOGUARD (FIT-DNA) [facility] Start: 2002 Colonoscopy COLONOSCOPY [facility] Start: 2002 COLORECTAL CANCER SCREENING COLORECTAL CANCER SCREENING [facility] Start: [address] COLONOGRAPHY [facility] Start: 2002 FECAL OCCULT BLOOD FECAL OCCULT BLOOD [facility] Start: 2002 SIGMOIDOSCOPY SIGMOIDOSCOPY [facility] Start: 1987 HPV TESTING HPV TESTING [facility] Start: 1976 Urine microalbumin profile [facility] Start: 1975 ANNUAL PCP TEAM CHRONIC DISEASE VISIT ANNUAL PCP TEAM CHRONIC DISEASE VISIT [facility] Start: 1975 HEPATITIS C SCREENING HEPATITIS C SCREENING [facility] Start: 1975 HIV SCREENING HIV SCREENING [facility] Start: 1975 SPIROMETRY SPIROMETRY [facility] Start: 1967 3 comp foot exam completed DIABETIC FOOT EXAM [facility] Start: 1967 Hepatitis B screening URINE ALBUMIN:CREATININE RATIO [facility] Start: 1967 Hepatitis C antibody, confirmatory test DILATED RETINAL EXAM [facility] Start: 1963 PNEUMOCOCCAL (1 - PCV) PNEUMOCOCCAL (1 - PCV) [facility] Start: 1963 Pneumococcal Vaccine: 65+ (1 - PCV) Pneumococcal Vaccine: 65+ (1 - PCV) [facility] Start: 1963 PNEUMOCOCCAL: 65+ (1 - PCV) PNEUMOCOCCAL: 65+ (1 - PCV) [facility] Start: 1962 COVID-19 VACCINE (#1) COVID-19 VACCINE (#1) [facility] Start: 1957 COVID-19 VACCINE (#1) COVID-19 VACCINE (#1) [facility] Dstr nrolytc agnt parverteb fct addl lmbr/sacral DSTR NROLYTC AGNT PARVERTEB FCT ADDL LMBR/SACRAL Procedures Routine Lumbar spondylosis Facet arthropathy Ordered: 06/10/2022 [facility] Work Phone: Immunizations Immunization Date Immunization Notes Care Provider Fa cili 07-11-2015 influenza, injectabl e, quadrivalent, contains preservative Den Fairbanks BARREL CAP SETTER.GEOLOGY PROFESSOR Work Phone: [facility] Work Phone: 07-11-2015 influenza virus vaccine, unspecified formulation Den Fairbanks BARREL CAP SETTER.GEOLOGY PROFESSOR Work Phone: [facility] 07-11-2011 influenza virus vaccine, unspecified formulation Den Fairbanks BARREL CAP SETTER.GEOLOGY PROFESSOR Work Phone: [facility] Payers Date Payer Category Payer Medicaid [id number] 2022 Medicaid [id number] 2022 Medicare [id number] 2022 Private Health Insurance [id number] 2014 Medicaid [employer] [id number] 2014-Present [phone] [address] [place] [address] Medicaid [id number] 2014 Medicaid [id number] 1955 Unknown [id number] Social History Date Type Detail Facility Start: 10-23-2011 End: 06-10-2022 Tobacco smoking status NHIS Ex-smoker [facility] End: 06-23-1985 History of tobacco use Current smoker [facility] End: 06-23-1985 History of tobacco use Cigarette Smoker [facility] Start: 10-23-2011 End: 03-29-2023 Cigarettes smoked current (pack per day) - Reported 0.2 [facility] Start: 10-23-2011 End: 06-10-2022 Tobacco use and exposure Smokeless tobacco non-user [facility] Start: 02-11-2021 End: 04-21-2023 Alcohol intake Current non-drinker of alcohol (finding) [facility] Start: 1955 Sex Assigned At Female C [facility] Start: 08-03-2022 End: 09-01-2022 Exposure to SARS-CoV-2 (event) Not sure [facility] Start: 03-29-2023 End: 04-21-2023 Tobacco use panel [facility] Adult Depression Screening Assessment 1 [facility] Start: 01-02-2022 Gender identity Identifies as female gender (finding) [facility] Start: 02-16-2022 Sexual orientation Heterosexual (fin ding) [facility] Clinical Notes 02-26-2022 to 09-20-2023 Telephone Encounter - Den Fairbanks APRN.CNP - 09/20/2023 3:33 PM ESTTelephone Encounter - Kaleigh Abrams RN - 09/20/2023 7:33 AM ESTTelephone Encounter - Kaleigh Abrams RN - 08/23/2023 11:53 AM EST Note Date & Type Note Facility 09-20-2023 Miscellaneous Notes The following approved medication requests have been transmitted electronically. Requested Prescriptions Signed Prescriptions Disp Refills meloxicam (MOBIC) 15 mg tablet 30 tablet 1 Sig: Take 1 tablet by mouth once daily. Authorizing Provider: DEN FAIRBANKS APRN.GEOLOGY PROFESSOR Received a refill request via [employer] from patient for the following medication(s): Requested Prescriptions Pending Prescriptions Disp Refills meloxicam (MOBIC) 15 mg tablet 30 tablet 1 Sig: Take 1 tablet by mouth once daily. The pharmacy has been populated. Last (Rx'd/filled) by 07/19/2023 by Den Fairbanks CNP Last Appointment(s) 12/10/2022 with Den Fairbanks CNP Next Appointment(s) None Routing to provider. Please review/advise. Kaleigh Abrams RN documented in this encounter [facility] 08-23-2023 Miscellaneous Notes Received secure email from [email or web address]. [facility] updated the outcome for PA: Favorable Request Young: [id number] PA created on: 2023-08-23 07:46:53 -0500 Received prior authorization via [email or web address]. Prescription: Methocarbamol 750mg tablets Form: [facility] Medicare Part D Young: [id number] DILAN Rx #: [id number] Awaiting authorization. documented in this encounter [facility] 07-19-2023 Miscellaneous Notes The following approved medication requests have been transmitted electronically. Requested Prescriptions Signed Prescriptions Disp Refills meloxicam (MOBIC) 15 mg tablet 30 tablet 1 Sig: Take 1 tablet by mouth once daily. Authorizing Provider: DEN FAIRBANKS APRN.CNP Received a refill request via [employer] from patient for the following medication(s): Requested Prescriptions Pending Prescriptions Disp Refills meloxicam (MOBIC) 15 mg tablet 30 tablet 1 Sig: Take 1 tablet by mouth once daily. The pharmacy has been populated. Last (Rx'd/filled) by 04/12/2023 by Den Fairbanks CNP Last Appointment(s) 12/10/2022 with eDn Fairbanks CNP Next Appointment(s) None Order pended. Please review/advise. Kaleigh Abrams RN documented in this encounter [facility] 07-05-2023 Miscellaneous Notes The following approved medication requests have been transmitted electronically. Requested Prescriptions Signed Prescriptions Disp Refills methocarbamol (ROBAXIN-750) 750 mg tablet 60 tablet 1 Sig: Take 1 tablet by mouth twice daily as needed. Authorizing Provider: DEN FAIRBANKS APRN.CNP Received a refill request via [employer] from the patient for the following medication(s): Requested Prescriptions Pending Prescriptions Disp Refills methocarbamol (ROBAXIN-750) 750 mg tablet 60 tablet 1 Sig: Take 1 tablet by mouth twice daily as needed. The pharmacy has been populated. Last (Rx'd/filled) by Den Fairbanks CNP on 04/12/23 Last Appointment(s) 12/10/22 with Den Fairbanks CNP Next Appointment(s) None Please review/advise. Sade Godoy Ma documented in this encounter [facility] 06-27-2023 Miscellaneous Notes The following approved medication requests have been transmitted electronically. Requested Prescriptions Signed Prescriptions Disp Refills naltrexone 5 mg capsule (CPD) 30 capsule 2 Sig: Take 1 capsule by mouth once daily. Den Fairbanks APRN.CNP Provider: Dr. Juan Jose Hurtado and Den Fairbanks CNP patient requesting refill. Please E-Scribe Last OV: 12/10/2022 with Den Fairbanks CNP Future OV: N/A Last prescribed: 03/07/2023 Requested Prescriptions Pending Prescriptions Disp Refills naltrexone 5 mg capsule (CPD) 30 capsule 2 Sig: Take 1 capsule by mouth once daily. Request sent to provider to review Gabbi Doyle RN documented in this encounter [facility] 04-21-2023 Note HNO ID: [id number] Author: Laura Toure PA-C Service: ? Author Type: Physician Hand Sewer Type: Progress Notes Filed: 04/23/2023 2:53 PM Note Text: FOLLOW UP VISIT - CHOLECYSTECTOMY NAME: Davin Arriola [facility] NO.: [id number] DATE OF SERVICE: 04/21/2023 : 1955 REFERRING PHYSICIAN: Ernesto Rubin, GEOLOGY PROFESSOR Davin is a patient I am following for a complaint of right upper quadrant pain. Dr. Davidson performed a laparoscopic cholecystectomy on 04/14/23. Pathology showed chronic cholecystitis and cholelithiasis. The patient currently notes no major complaints. her appetite has been good. she denies fever, chills or abdominal pain. she does note some mild incisional discomfort. VITALS: Blood pressure 106/68, pulse 84, temperature 36.4 ?C (97.5 ?F), height 163.8 cm (5' 4.5 ), weight 92.1 kg (203 lb), SpO2 94 %. On examination, the abdomen is benign. The incisions are healing well without signs of infection or inflammation. Assessment IMPRESSION: status post laparoscopic cholecystectomy PLAN: If the patient notes any problems, she should contact me immediately. she may return to her regular activities as tolerated, with the exception of no lifting greater than 25 pounds for the next 2 weeks. The patient is to contact me immediately is she experiences any of her preoperative symptoms. We discussed that occasional right up quadrant symptoms similar to the preoperative complaints can occur in the first couple of weeks post operatively. If this persists beyond the first 2-3 weeks, they should contact our office. Diagnoses: (K80.10) Calculus of gallbladder with chronic cholecystitis without obstruction (primary encounter diagnosis) Return to Clinic: The patient is instructed to follow-up with me as needed. Laura Toure PA-C [facility] 04-17-2023 Note HNO ID: [id number] Author: Mina Petit MD Service: Hospital Medicine Author Type: Physician Type: Progress Notes Filed: 04/17/2023 2:58 PM Note Text: DEPARTMENT OF HOSPITAL MEDICINE PROGRESS NOTE SERVICE DATE: 04/17/2023 SERVICE TIME: 2:20 PM Hospital Medicine/Primary Attending: Mina Petit MD NIGHT AND WEEKEND COVERAGE: [place] COVERAGE: Nights: [phone], please page [place] [facility] Night coverage pager [phone]. Reason for Admission: Postoperative hypoxemia INTERVAL HPI: Patient moving air better and down to 1 L she still had fever to 100.2 last night. We will plan desat study in the morning with discharge home no needs. ASSESSMENT/PLAN Goal for glucose 100-180 At goal Cultures negative thus far other than those noted:None Vital signs:T-MAX 100.8 again, now on 1 LITER/min Reviewed labs Problem list reviewed Medication list reviewed Reviewed new notes MAGNESIUM AND K-PHOS optimized electrolytes Exam improved respiratory distress improved will do desaturation study tomorrow in the morning. Consultants: Dr. Davidson for surgery. 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 EF = 75 ? 5% (visual est.) No gross wall motion abnormalities noted. - No prior echocardiographic exam available for comparison. Recent Labs 04/16/23 04504/14/23 1245 LACT 0.8 2.2 Recent Labs 04/17/23 0445 04/16/23 0458 04/15/23 0422 04/14/23 1245 CK -- -- -- 63 MCV 92.3 91.8 92.4 92.5 MCH 29.5 29.3 29.8 29.6 MPV 9.1 9.2 8.8* 8.7* Recent Labs 04/17/23 0445 04/16/23 0458 04/15/23 0422 WBC 9.88 13.00* 12.16* RBC 4.54 4.64 4.76 HB 13.4 13.6 14.2 HCT 41.9 42.6 44.0 PLT 199 214 244 MCV 92.3 91.8 92.4 MCH 29.5 29.3 29.8 MPV 9.1 9.2 8.8* ABSNEUT 7.74* 10.75* 10.09* NEUTP 78.4 82.8 82.9 LYMPHP 10.3 7.9 9.2 MONOP 9.4 7.8 7.1 Recent Labs 04/17/23 04404/16/23 0458 04/15/23 0422 04/14/23 1245 GLUC 154* 161* 126* 196* NA 139 137 140 137 K 4.4 4.3 4.4 4.0 CHLOR 101 100 102 101 CO2 26 25 26 24 CREAT 0.59 0.57* 0.54* 0.54* BUN 10 9 11 18 ANION 12 12 12 12 CA 9.0 9.2 9.2 8.5 TPROT -- 6.9 -- 6.5 ALB 3.6* 3.7* 3.7* 4.0 4.1 TBILI -- 0.7 -- 0.6 ALKPHOS -- 71 -- 85 AST -- 39* -- 185* ALT -- 106* -- 162* Recent Labs 04/14/23 1245 CRP <0.3 Recent Labs 04/17/23 1220 04/17/23 0757 04/17/23 0445 04/16/23 2107 04/16/23 0820 04/16/23 0458 04/15/23 0830 04/15/23 0422 GLUC -- -- 154* -- -- 161* -- 126* PCGLUCOSE 141* 135* -- 166* < > -- < > -- < > = values in this interval not displayed. Recent Labs 04/16/23 04504/14/23 1245 LACT 0.8 2.2 Recent Labs 04/17/23 0445 04/16/23 0458 04/15/23 0422 04/14/23 1245 PLT 199 214 244 248 Recent Labs 04/17/23 04404/16/23 0458 04/15/23 0422 BUN 10 9 11 CREAT 0.59 0.57* 0.54* CA 9.0 9.2 9.2 P 3.6 2.4* 3.2 MG 2.1 1.7 2.0 Hemoglobin A1C (%) Date Value 04/01/2023 6.8 02/17/2017 6.2 09/15/2016 6.1 HBA1C, [place] (%) Date Value 03/10/2011 5.6 11/14/2010 5.8 Last 14 BP Last 14 Encounter BP Readings: Date: BP: 04/14/2023 141/70 04/07/2023 102/70 03/29/2023 145/68 03/29/2023 120/70 11/16/2022 133/73 08/06/2022 112/66 07/24/2022 130/67 02/11/2021 110/50 01/20/2021 104/62 10/17/2018 124/80 12/07/2016 134/80 08/14/2016 126/89 07/21/2016 138/90 06/02/2016 134/87 Most recent labs Principal Problem: Acute respiratory failure with hypoxia (HCC) Active Problems: Asthma Class 2 severe obesity due to excess calories with serious comorbidity and body mass index (BMI) of 35.0 to 35.9 in adult (HCC) Abnormal EKG Status post laparoscopic cholecystectomy Hypomagnesemia Resolved Problems: Calculus of gallbladder with acute on chronic cholecystitis without obstruction HOSPITAL COURSE: Davin Arriola is a 68 year old female presented with past medical history of gallbladder calculus with chronic cholecystitis status post laparoscopic cholecystectomy, prior breast cancer 2015, obesity, asthma controlled with Singulair, 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 Patient did not respond to aerosols. And is placed on the observation unit on the medical service. On the medical floor seen in consultation by s (more content not included)... [facility] 04-17-2023 Note HNO ID: [id number] Author: Marii Ray MD Service: General Surgery Author Type: Physician Type: Progress Notes Filed: 04/17/2023 11:22 AM Note Text: GENERAL SURGERY PROGRESS NOTE Patient Name: Davin Arriola Account #: Data Unavailable Admission Date: 04/14/2023 Date of Evaluation: 04/17/2023 Time of Evaluation: 11:20 AM POST OP DAY: 2 [facility] Principal Problem: Acute respiratory failure with hypoxia (HCC) (POA: Yes) ASSESSMENT/PLAN: Ok from surgical standpoint for dc once cleared from respiratory standpointy Dc instructions placed INTERVAL HPI: no abdominal c/o good pain control, slowly improving appetite, still requiring O2, wbc normalized. Denies cp, sob VITALS: Patient Vitals for the past 24 hrs: BP Temp Temp src Pulse Resp SpO2 Weight 04/17/23 0814 -- -- -- 78 18 96 % -- 04/17/23 0737 124/73 37.1 ?C (98.8 ?F) Oral 74 16 96 % -- 04/17/23 0501 -- -- -- -- -- -- 94.5 kg (208 lb 5.4 oz) 04/17/23 0426 145/70 37.4 ?C (99.3 ?F) Oral 83 17 97 % -- 04/16/23 2245 140/74 37.1 ?C (98.8 ?F) Oral 85 18 96 % -- 04/16/23 2013 148/74 (!) 38.2 ?C (100.8 ?F) Oral 87 19 95 % -- 04/16/23 1607 -- -- -- 86 18 -- -- 04/16/23 1557 -- -- -- 85 18 97 % -- 04/16/23 1535 115/70 37.6 ?C (99.7 ?F) Oral 84 18 98 % -- 04/16/23 1311 -- 37 ?C (98.6 ?F) Oral 92 -- 96 % -- 04/16/23 1204 -- -- -- 92 18 -- -- 04/16/23 1156 -- -- -- 90 18 95 % -- 04/16/23 1131 137/72 37.4 ?C (99.3 ?F) Oral 87 18 96 % -- I AND O: Intake/Output Summary (Last 24 hours) at 04/17/2023 1120 Last data filed at 04/17/2023 1000 Gross per 24 hour Intake 1185 ml Output -- Net 1185 ml MEDS: Current Facility-Administered Medications Medication Dose Route Frequency dicyclomine 20 mg tab(s) (BENTYL) 20 mg ORAL QID PRN valsartan 80 mg tab(s) (DIOVAN) 80 mg ORAL DAILY montelukast 10 mg tab(s) (SINGULAIR) 10 mg ORAL AT BEDTIME sertraline 50 mg tab(s) (ZOLOFT) 50 mg ORAL DAILY methocarbamol 750 mg tab(s) (ROBAXIN) 750 mg ORAL BID PRN docusate sodium 100 mg cap(s) (COLACE) 100 mg ORAL BID PRN enoxaparin 40 mg injection (LOVENOX) 40 mg SUBCUTANEOUS q 24 HR NaCl 0.9% iv flush bag 20 mL INTRAVENOUS PRN NaCl 0.9% iv infusion 75 mL/hr INTRAVENOUS CONTINUOUS pantoprazole DR 40 mg tab(s) (PROTONIX) 40 mg ORAL DAILY (6 AM) benzonatate 100 mg cap(s) (TESSALON PERLE) 100 mg ORAL TID albuterol 2.5 mg /3 mL (0.083 %) 2.5 mg (PROVENTIL) 2.5 mg INHALATION QID pramipexole 0.125 mg tab(s) (MIRAPEX) 0.125 mg ORAL AT BEDTIME acetaminophen 1,000 mg tab(s) (TYLENOL) 1,000 mg ORAL q 8 H oxyCODONE IR 5 mg tab(s) (ROXICODONE) 5 mg ORAL q 3 H PRN oxyCODONE IR 10 mg tab(s) (ROXICODONE) 10 mg ORAL q 3 H PRN HYDROmorphone 0.2 mg injection (DILAUDID) 0.2 mg INTRAVENOUS q 3 H PRN dextrose 40 % 15 g 15 g ORAL PRN Or glucagon 1 mg injection 1 mg INTRAMUSCULAR PRN Or dextrose 10% iv bolus 12.5 g INTRAVENOUS PRN insulin lispro injection (rapid acting) (HumaLOG) SUBCUTANEOUS w MEALS insulin lispro injection (rapid acting) (HumaLOG) SUBCUTANEOUS AT BEDTIME cefTRIAXone iv piggyback 1 g in dextrose (iso-osmotic) 50 mL (ROCEPHIN) 1 g INTRAVENOUS q 24 H doxycycline 100 mg in D5W 250 mL Vial-Bag (VIBRAMYCIN) 100 mg INTRAVENOUS q 12 H sodium chloride 7% solution 4 mL INHALATION ONLY 4 mL INHALATION BID LABS: Recent Labs 04/17/2344404/16/2345704/15/23 042 WBC 9.88 13.00* 12.16* HB 13.4 13.6 14.2 HCT 41.9 42.6 44.0 PLT 199 214 244 Recent Labs 04/17/2344404/16/2345704/16/2345604/15/2342104/14/23 1245 NA 139 137 -- 140 137 K 4.4 4.3 -- 4.4 4.0 BUN 10 9 -- 11 18 CREAT 0.59 0.57* -- 0.54* 0.54* GLUC 154* 161* -- 126* 196* CHLOR 101 100 -- 102 101 CO2 26 25 -- 26 24 MG 2.1 1.7 -- 2.0 1.4* CA 9.0 9.2 -- 9.2 8.5 LACT -- -- 0.8 -- 2.2 Recent Labs 04/17/2344404/16/2345704/15/2342104/14/23 1245 TPROT -- 6.9 -- 6.5 ALB 3.6* 3.7* 3.7* 4.0 4.1 AST -- 39* -- 185* ALT -- 106* -- 162* ALKPHOS -- 71 -- 85 TBILI -- 0.7 -- 0.6 PHYSICAL EXAM: Incision/s- clean, dry and intact. Abdomen- Soft and minimally distended, expected post op tn Extremities: No edema or swelling Neuro: Oriented x 3 DIAGNOSTIC IMAGING REVIEW: None Marii Ray MD Electronically signed at: 11:20 AM Pager [phone] [facility] 04-17-2023 Note HNO ID: [id number] Author: Interface Note Service: ? Author Type: ? Type: Progress Notes Filed: 04/17/2023 3:56 AM Note Text: Epic Scheduled Downtime: 04/17/2023 1:02:30 AM to 04/17/2023 3:40:00 AM [facility] 04-16-2023 Note HNO ID: [id number] Author: Mina Petit MD Service: Hospital Medicine Author Type: Physician Type: Progress Notes Filed: 04/16/2023 4:14 PM Note Text: DEPARTMENT OF HOSPITAL MEDICINE PROGRESS NOTE SERVICE DATE: 04/16/2023 SERVICE TIME: 3:42 PM Hospital Medicine/Primary Attending: Mina Petit MD NIGHT AND WEEKEND COVERAGE: [place] COVERAGE: Nights: [phone], please page [place] Hospitalist Night coverage pager [phone]. Reason for Admission: Postoperative hypoxemia INTERVAL HPI: ASSESSMENT/PLAN Goal for glucose 100-180 At goal Cultures negative thus far other than those noted:None Vital signs:T-MAX 100.8 STILL ON 2 LITERS Reviewed labs Problem list reviewed Medication list reviewed Reviewed new notes MAGNESIUM AND K-PHOS IV Consultants: Dr. Davidson for surgery. 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 EF = 75 ? 5% (visual est.) No gross wall motion abnormalities noted. - No prior echocardiographic exam available for comparison. Recent Labs 04/16/23 0457 04/14/23 1245 LACT 0.8 2.2 Recent Labs 04/16/23 0458 04/15/23 0422 04/14/23 1245 CK -- -- 63 MCV 91.8 92.4 92.5 MCH 29.3 29.8 29.6 MPV 9.2 8.8* 8.7* Recent Labs 04/16/23 0458 04/15/23 0422 04/14/23 1245 WBC 13.00* 12.16* 16.26* RBC 4.64 4.76 4.96 HB 13.6 14.2 14.7 HCT 42.6 44.0 45.9 PLT 214 244 248 MCV 91.8 92.4 92.5 MCH 29.3 29.8 29.6 MPV 9.2 8.8* 8.7* ABSNEUT 10.75* 10.09* 14.88* NEUTP 82.8 82.9 91.5 LYMPHP 7.9 9.2 3.8 MONOP 7.8 7.1 3.9 Recent Labs 04/16/23 0458 04/15/23 04204/14/23 1245 GLUC 161* 126* 196* NA 137 140 137 K 4.3 4.4 4.0 CHLOR 100 102 101 CO2 25 26 24 CREAT 0.57* 0.54* 0.54* BUN 9 11 18 ANION 12 12 12 CA 9.2 9.2 8.5 TPROT 6.9 -- 6.5 ALB 3.7* 3.7* 4.0 4.1 TBILI 0.7 -- 0.6 ALKPHOS 71 -- 85 AST 39* -- 185* ALT 106* -- 162* Recent Labs 04/14/23 1245 CRP <0.3 Recent Labs 04/16/23 1259 04/16/23 0820 04/16/23 0458 04/15/23 1945 04/15/23 0830 04/15/23 0422 04/14/23 1317 04/14/23 1245 GLUC -- -- 161* -- -- 126* -- 196* PCGLUCOSE 126* 138* -- 142* < > -- < > -- < > = values in this interval not displayed. Recent Labs 04/16/23 04504/14/23 1245 LACT 0.8 2.2 Recent Labs 04/16/23 0458 04/15/23 0422 04/14/23 1245 04/01/23 1521 PLT 214 244 248 241 Recent Labs 04/16/23 0458 04/15/23 0422 04/14/23 1245 BUN 9 11 18 CREAT 0.57* 0.54* 0.54* CA 9.2 9.2 8.5 P 2.4* 3.2 2.9 MG 1.7 2.0 1.4* Hemoglobin A1C (%) Date Value 04/01/2023 6.8 02/17/2017 6.2 09/15/2016 6.1 HBA1C, [place] (%) Date Value 03/10/2011 5.6 11/14/2010 5.8 Last 14 BP Last 14 Encounter BP Readings: Date: BP: 04/14/2023 141/70 04/07/2023 102/70 03/29/2023 145/68 03/29/2023 120/70 11/16/2022 133/73 08/06/2022 112/66 07/24/2022 130/67 02/11/2021 110/50 01/20/2021 104/62 10/17/2018 124/80 12/07/2016 134/80 08/14/2016 126/89 07/21/2016 138/90 06/02/2016 134/87 Most recent labs Principal Problem: Acute respiratory failure with hypoxia (HCC) Active Problems: Asthma Class 2 severe obesity due to excess calories with serious comorbidity and body mass index (BMI) of 35.0 to 35.9 in adult (HCC) Abnormal EKG Status post laparoscopic cholecystectomy Hypomagnesemia Acute respiratory failure (HCC) Resolved Problems: Calculus of gallbladder with acute on chronic cholecystitis without obstruction HOSPITAL COURSE: Davin Arriola is a 68 year old female presented with past medical history of gallbladder calculus with chronic cholecystitis status post laparoscopic cholecystectomy, prior breast cancer 2014, obesity, asthma controlled with Singulair, 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 Patient did not respond to aerosols. And is placed on the observation unit on the medical service. On the medical floor seen in consultation by surgery. CT chest obtained for aspiration as a routine chest x-ray was clear she did have some bibasilar crackles but no other signs of CHF. PHYSICAL EXAM: BP 115/70 Pulse 84 Temp (Src) 99.7 (Oral) Resp 18 Ht 5' 4.5 (1.64m) Wt 209 lb 7 oz (95.0kg) SpO2 98% BMI 35.41 kg/(m2). O2 Therapy: Nasal Cannula, Liters: 2.00 Physic (more content not included)... [facility] 04-16-2023 Note HNO ID: [id number] Author: Nuria Teresa PA-C Service: Hospital Medicine Author Type: Physician Hand Sewer Type: Plan of Care Filed: 04/16/2023 4:33 AM Note Text: BP 133/67 Pulse 90 Temp (!) 38.3 ?C (100.9 ?F) (Oral) Resp 17 Ht 163.8 cm (5' 4.5 ) Wt 95 kg (209 lb 7 oz) SpO2 96% BMI 35.39 kg/m? RN paged that patient spiked fever of 100.9F. She is s/p lap violet 04/14. Will obtain blood cultures, lactate, and give Tylenol. Patient is already on abx. Nuria Teresa PA-C 4:32 AM [facility] 04-15-2023 Note HNO ID: [id number] Author: Mina Petit MD Service: Hospital Medicine Author Type: Physician Type: Progress Notes Filed: 04/15/2023 5:56 PM Note Text: DEPARTMENT OF HOSPITAL MEDICINE PROGRESS NOTE SERVICE DATE: 04/15/2023 SERVICE TIME: 5:01 PM Hospital Medicine/Primary Attending: Mina Petit MD NIGHT AND WEEKEND COVERAGE: [place] COVERAGE: Nights: [phone], please page [place] Hospitalist Night coverage pager [phone]. Reason for Admission: Postoperative hypoxemia INTERVAL HPI: Not stable for discharge in the evening with the moderate borderline hypoxemia at rest and her use of accessory muscles at rest. ASSESSMENT/PLAN Goal for glucose 100-180 At goal Cultures negative thus far other than those noted:None Vital signs: Reviewed labs Problem list reviewed Medication list reviewed Reviewed new notes Patient improving she is about 90% at rest on room air/instead of 78% and she is moving air better Consultants: Dr. Davidson for surgery. 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 EF = 75 ? 5% (visual est.) No gross wall motion abnormalities noted. - No prior echocardiographic exam available for comparison. Recent Labs 04/14/23 1245 LACT 2.2 Recent Labs 04/15/23 0422 04/14/23 1245 CK -- 63 MCV 92.4 92.5 MCH 29.8 29.6 MPV 8.8* 8.7* Recent Labs 04/15/23 04204/14/23 1245 04/01/23 1521 WBC 12.16* 16.26* 7.76 RBC 4.76 4.96 5.15 HB 14.2 14.7 15.3 HCT 44.0 45.9 47.2* PLT 244 248 241 MCV 92.4 92.5 91.7 MCH 29.8 29.6 29.7 MPV 8.8* 8.7* 9.0 ABSNEUT 10.09* 14.88* 5.02 NEUTP 82.9 91.5 64.7 LYMPHP 9.2 3.8 25.5 MONOP 7.1 3.9 7.6 Recent Labs 04/15/2342104/14/23 12404/01/23 1521 GLUC 126* 196* 174* NA 140 137 140 K 4.4 4.0 4.2 CHLOR 102 101 102 CO2 26 24 30 CREAT 0.54* 0.54* 0.68 BUN 11 18 18 ANION 12 12 8* CA 9.2 8.5 9.5 TPROT -- 6.5 -- ALB 4.0 4.1 -- TBILI -- 0.6 -- ALKPHOS -- 85 -- AST -- 185* -- ALT -- 162* -- Recent Labs 04/14/23 1245 CRP <0.3 Recent Labs 04/15/23 1149 04/15/23 0830 04/15/2342104/14/23 1925 04/14/23 1317 04/14/23 1245 GLUC -- -- 126* -- -- 196* PCGLUCOSE 183* 125* -- 219* < > -- < > = values in this interval not displayed. Recent Labs 04/14/23 1245 LACT 2.2 Recent Labs 04/15/2342104/14/23 12404/01/23 1521 PLT 244 248 241 Recent Labs 04/15/23 04204/14/23 1245 04/01/23 1521 BUN 11 18 18 CREAT 0.54* 0.54* 0.68 CA 9.2 8.5 9.5 P 3.2 2.9 -- MG 2.0 1.4* -- Hemoglobin A1C (%) Date Value 04/01/2023 6.8 02/17/2017 6.2 09/15/2016 6.1 HBA1C, [place] (%) Date Value 03/10/2011 5.6 11/14/2010 5.8 Last 14 BP Last 14 Encounter BP Readings: Date: BP: 04/14/2023 141/70 04/07/2023 102/70 03/29/2023 145/68 03/29/2023 120/70 11/16/2022 133/73 08/06/2022 112/66 07/24/2022 130/67 02/11/2021 110/50 01/20/2021 104/62 10/17/2018 124/80 12/07/2016 134/80 08/14/2016 126/89 07/21/2016 138/90 06/02/2016 134/87 Most recent labs Principal Problem: Acute respiratory failure with hypoxia (HCC) Active Problems: Asthma Class 2 severe obesity due to excess calories with serious comorbidity and body mass index (BMI) of 35.0 to 35.9 in adult (HCC) Abnormal EKG Status post laparoscopic cholecystectomy Hypomagnesemia Resolved Problems: Calculus of gallbladder with acute on chronic cholecystitis without obstruction HOSPITAL COURSE: Davin Arriola is a 68 year old female presented with past medical history of gallbladder calculus with chronic cholecystitis status post laparoscopic cholecystectomy, prior breast cancer 2014, obesity, asthma controlled with Singulair, 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 Patient did not respond to aerosols. And is placed on the observation unit on the medical service. On the medical floor seen in consultation by surgery. CT chest obtained for aspiration as a routine chest x-ray was clear she did have some bibasilar crackles but no other signs of CHF. PHYSICAL EXAM: BP 105/49 Pulse 76 Temp (Src) 98.6 (Oral) Resp 18 Ht 5' 4.5 (1.64m) Wt 209 lb 7 oz (95.0kg) SpO2 92% BMI 35.41 kg/(m2). O2 Therapy: Nasal Cannula, Liters: 2.00 Physical Exam Perfor (more content not included)... [facility] 04-14-2023 Note HNO ID: [id number] Author: Helen Butcher PA-C Service: General Surgery Author Type: Physician Hand Sewer Type: Plan of Care Filed: 04/14/2023 2:56 PM Note Text: Patient of Dr. Davidson. S/p lap violet today with increased respiratory needs. Admitted to hospital medicine for continued care. Will follow while inpatient. SIGNATURE: Helen Butcher PA-C PATIENT NAME: Davin Arriola DATE: April 14, 2023 TIME: 2:56 PM [facility] 04-14-2023 Note HNO ID: [id number] Author: Mina Petit MD Service: Hospital Medicine Author Type: Physician Type: Progress Notes Filed: 04/14/2023 5:00 PM Note Text: CT scan reviewed and starting ceftriaxone and doxycycline IV for tonight with this being for what appears to be atelectasis or possible pneumonia. With the elevated white count. 1 dose of IV Decadron given which should be sufficient steroids and adding to the bronchopulmonary hygiene and incentive spirometer inhaled saline. She already is put on scheduled albuterol. Mina Petit MD April 14, 2023 4:58 PM DEPARTMENT OF HOSPITAL MEDICINE PROGRESS NOTE SERVICE DATE: 04/14/2023 SERVICE TIME: 4:54 PM Hospital Medicine/Primary Attending: Mina Petit MD NIGHT AND WEEKEND COVERAGE: [place] COVERAGE: Nights: [phone], please page [place] [facility] Night coverage pager [phone]. Reason for Admission: Postoperative hypoxemia INTERVAL HPI: Patient stated recovery room chest x-ray with poor inspiration patient not wheezing diminished breath sounds of both bases. I will put on observation on my service. 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 Consultants: Dr. Davidson for surgery. 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 EF = 75 ? 5% (visual est.) No gross wall motion abnormalities noted. - No prior echocardiographic exam available for comparison. Recent Labs 04/14/23 1245 LACT 2.2 Recent Labs 04/14/23 1245 CK 63 MCV 92.5 MCH 29.6 MPV 8.7* Recent Labs 04/14/23 1245 04/01/23 1521 WBC 16.26* 7.76 RBC 4.96 5.15 HB 14.7 15.3 HCT 45.9 47.2* PLT 248 241 MCV 92.5 91.7 MCH 29.6 29.7 MPV 8.7* 9.0 ABSNEUT 14.88* 5.02 NEUTP 91.5 64.7 LYMPHP 3.8 25.5 MONOP 3.9 7.6 Recent Labs 04/14/23 1245 04/01/23 1521 GLUC 196* 174* NA 137 140 K 4.0 4.2 CHLOR 101 102 CO2 24 30 CREAT 0.54* 0.68 BUN 18 18 ANION 12 8* CA 8.5 9.5 TPROT 6.5 -- ALB 4.1 -- TBILI 0.6 -- ALKPHOS 85 -- AST 185* -- ALT 162* -- Recent Labs 04/14/23 1245 CRP <0.3 Recent Labs 04/14/23 1317 04/14/23 1245 04/14/23 0845 04/14/23 0631 GLUC -- 196* -- -- PCGLUCOSE 178* -- 165* 144* Recent Labs 04/14/23 1245 LACT 2.2 Recent Labs 04/14/23 1245 04/01/23 1521 PLT 248 241 Recent Labs 04/14/23 1245 04/01/23 1521 BUN 18 18 CREAT 0.54* 0.68 CA 8.5 9.5 P 2.9 -- MG 1.4* -- Hemoglobin A1C (%) Date Value 04/01/2023 6.8 02/17/2017 6.2 09/15/2016 6.1 HBA1C, [place] (%) Date Value 03/10/2011 5.6 11/14/2010 5.8 Last 14 BP Last 14 Encounter BP Readings: Date: BP: 04/14/2023 141/70 04/07/2023 102/70 03/29/2023 145/68 03/29/2023 120/70 11/16/2022 133/73 08/06/2022 112/66 07/24/2022 130/67 02/11/2021 110/50 01/20/2021 104/62 10/17/2018 124/80 12/07/2016 134/80 08/14/2016 126/89 07/21/2016 138/90 06/02/2016 134/87 Most recent labs Principal Problem: Acute respiratory failure with hypoxia (HCC) Active Problems: Asthma Class 2 severe obesity due to excess calories with serious comorbidity and body mass index (BMI) of 35.0 to 35.9 in adult (HCC) Abnormal EKG Status post laparoscopic cholecystectomy Hypomagnesemia Resolved Problems: Calculus of gallbladder with acute on chronic cholecystitis without obstruction HOSPITAL COURSE: Davin Arriola is a 68 year old female presented with past medical history of gallbladder calculus with chronic cholecystitis status post laparoscopic cholecystectomy, prior breast cancer 2014, obesity, asthma controlled with Singulair, 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 Patient did not respond to aerosols. And is placed on the observation unit on the medical service. On the medical floor seen in consultation by surgery. CT chest obtained for aspiration as a routine chest x-ray was clear she did have some bibasilar crackles but no other signs of (more content not included)... [facility] documented as of this encounter (statuses as of 04/27/2023) [facility]07-05-2023 History of Past illness Narrative* Problem Noted Date Diagnosed Date Resolved Date RUQ pain 04/14/2023 04/14/2023 Calculus of gallbladder with acute on chronic cholecystitis without obstruction 04/14/20232022 Hypomagnesemia 04/14/2023 04/18/2023 documented as of this encounter (statuses as of 06/28/2023) [address]05-2023 History of Past illness Narrative* Problem Noted Date Diagnosed Date Resolved Date RUQ pain 04/14/2023 04/14/2023 Calculus of gallbladder with acute on chronic cholecystitis without obstruction 04/14/20232022 Hypomagnesemia 04/14/2023 04/18/2023 documented as of this encounter (statuses as of 07/05/2023) [facility]07-05-2023 History of Past illness Narrative* Problem Noted Date Diagnosed Date Resolved Date RUQ pain 04/14/2023 04/14/2023 Calculus of gallbladder with acute on chronic cholecystitis without obstruction 04/14/20232022 Hypomagnesemia 04/14/2023 04/18/2023 documented as of this encounter (statuses as of 07/20/2023) [facility]-05-2023 History of Past illness Narrative* Problem Noted Date Diagnosed Date Resolved Date RUQ pain 04/14/2023 04/14/2023 Calculus of gallbladder with acute on chronic cholecystitis without obstruction 04/14/20232022 Hypomagnesemia 04/14/2023 04/18/2023 documented as of this encounter (statuses as of 08/23/2023) [facility]07-05-2023 History of Past illness Narrative* Problem Noted Date Diagnosed Date Resolved Date RUQ pain 04/14/2023 04/14/2023 Calculus of gallbladder with acute on chronic cholecystitis without obstruction 04/14/20232022 Hypomagnesemia 04/14/2023 04/18/2023 documented as of this encounter (statuses as of 09/21/2023) [facility]07-05-2023 NoteHNO ID: [id number] Author: ALMA Jeronimo Service: ? Author Type: Mule Spinner Type: Anesthesia Procedure Notes Filed: 04/14/2023 8:01 AM Note Text: ANESTHESIOLOGY PROCEDURE NOTE Airway General Information Procedure Start Time/Medication Administration: 04/14/2023 7:41 AM Patient location during procedure: OR Timeout Performed Pre-procedure: timeout performed Consent Obtained: Yes Patient identity confirmed: arm band and patient Staffing CAA: ALMA Jeronimo Performed by: JO Indications and Patient Condition Indications for airway management: anesthesia Preoxygenated: yes anesthesia circuit Patient position: sniffing Method: asleep Difficult Mask: No Final Airway Details Final airway type: endotracheal airway Final Endotracheal Airway: ETT Cuffed: yes Successful intubation technique: direct laryngoscopy Devices used: intubating stylet Endotracheal tube insertion site: oral Blade: Arthur Blade size: #2 ETT size (mm): 7.0 Measured from: lips Measurement (cm): 21 Placement verified by: chest auscultation and capnometry Cormack-Lehane Classification: grade III - view of epiglottis only Number of attempts at approach: 2 (Grade 3 view both attempts, DL x2 with Mil2, stylet used 2nd attempt: successful.) Ventilation between attempts: BVM SIGNATURE: ALMA Jeronimo PATIENT NAME: Davin Arriola DATE: April 14, 2023 TIME: 7:57 AM CSN: [id number] Miscellaneous Notes* Telephone Encounter - Den Fairbanks APRN.CNP - 04/12/2023 9:30 AM EDT The following approved medication requests have been transmitted electronically. Requested Prescriptions Signed Prescriptions Disp Refills meloxicam (MOBIC) 15 mg tablet 30 tablet 1 Sig: Take 1 tablet by mouth once daily. Authorizing Provider: DEN FAIRBANKS methocarbamol (ROBAXIN-750) 750 mg tablet 60 tablet 1 Sig: Take 1 tablet by mouth twice daily as needed. Authorizing Provider: DEN FAIRBANKS APRN.CNP documented in this encounterOhiohealth [facility] Center06-28-2023 Instructions* Patient Instructions* Lisandro Escobar APRN.CNP - 04/07/2023 11:09 AM EDT PATIENT PREOPERATIVE INSTRUCTIONS Aries Davidson MD has scheduled you for your procedure at this surgery center: [facility]: [phone] -- [address] [facility] [address]. Please read below carefully for your personalized instructions. Dietary Restrictions: - No solid food after midnight. - You may have 12 ounces of clear liquids (water, clear juices such as apple juice or gatorade, carbonated beverages, clear tea, black coffee, jello) until 2 hours before scheduled arrival at facility. No red/purple coloring and no creamer/sugar Medications: Unless instructed differently below, stay on all of your medications until your surgery. Approved medications to take the morning of surgery with a sip of water: albuterol (PROAIR) inhaler, fexofenadine (FLOR), montelukast (SINGULAIR), omeprazole (PRILOSEC), pramipexole (MIRAPEX), rosuvastatin (CRESTOR), sertraline (ZOLOFT) Do not take Valsartan the morning and/or evening prior surgery HOLD NALTREXONE 3 DAYS PRIOR TO SURGERY - No diabetic medication the morning of surgery. - Accucheck day of surgery. - If you take Invokana, Farxiga or Jardiance, hold 3 day pre-op If you start any new medications after today's visit, please contact the surgeon's office. Blood Thinning Medications: - Stop NSAIDS (Ibuprofen, Advil, Aleve, Motrin, Celebrex, Mobic, etc.) 7 days before surgery, as directed by your surgeon. - Stop Aspirin 7 days before surgery, as directed by your surgeon. - Stop Vitamin E, ALL multi-vitamins, herbals and dietary supplements 7 days before surgery. - You may take Tylenol (Acetaminophen) or any of your pain medications that do not contain aspirin or NSAIDS as needed. Important Reminders: - Candy, mints, gum and tobacco products are NOT permitted the morning of surgery. - Hearing aids, dentures and glasses may be worn the morning of surgery. - NO jewelry, body piercings, makeup, hairpins or contacts are to be worn the day of surgery. If you develop symptoms such as a fever, cold, or flu, or have other changes to your health within TWO DAYS of scheduled surgery or the morning of surgery, please contact the surgery center above. Personal Belongings: -Please have photo ID and insurance cards. -If you do not have a copy of advance directives on file with us, please bring a copy with you on the day of surgery. - Leave ALL valuables and money at home or with family members. For Outpatient Procedures: - YOU MUST HAVE A RESPONSIBLE ENDOSCOPY SPECIALTY TECHNICIAN TAKE YOU HOME. A COMMERCIAL LENDING ASSISTANT OR VAT HOUSE LABORER CANNOT BE MADE A RESPONSIBLE ENDOSCOPY SPECIALTY TECHNICIAN. - We recommend that a responsible person stays with you overnight to take care of you. - You cannot stay in a hotel alone after outpatient surgery. You will not be permitted to have yoursurgery, if you do not have someone to take care of you. Arrival Time for Surgery: - The Surgery Center or hospital where you are having surgery will call the afternoon before surgery (or Wednesday for Wednesday surgery) with a scheduled arrival time. - If you have not heard by 4 pm, please contact the surgery center above. Please be aware that emergency situations arise, which may delay or change your surgical time. If this happens, we will notify you as soon as possible and regret any inconvenience. If you already have an Advance Directive, please fax a copy to [phone] or email to for it to be added to your chart. If you do not have an Advance Directive, you can find the appropriate form and more information at [email or web address]. We recommend that youcomplete the Advance Directive form found on the website and bring it with you the day of your surgery. It can be witnessed and scanned into your chart that day. Lisandro Escobar APRN.CNP documented in this encounterOhiohealth [facility] Center06-28-2023 History and physical note * Lisandro Escobar APRN.CNP - 04/07/2023 10:54 AM EDT HISTORY AND PHYSICAL EXAMINATION SERVICE DATE: 04/07/2023 SERVICE TIME: 12:27 PM PRIMARY CARE PHYSICIAN: SUZIE Joyner, MINOR REASON FOR VISIT: Davin Arriola is a 68 year old female who is scheduled for Procedure(s): LAPAROSCOPIC CHOLECYSTECTOMY (N/A) at the request of Dr. Aries Davidson for consultation. My final recommendation will be communicated back to the requesting physician by way of shared medical record or letter. 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 CHIEF COMPLAINT: Pre-op exam HPI: Davin Arriola is a 68 year old seen for PAC due to scheduled above surgery because of gallstones. 03/29/2023, Dr. Davidson HPI: Davin is a 67 year old female with a complaint of right upper quadrant pain. The patient has had symptoms of right upper quadrant pain for few months. The symptoms have maintained, over the past few months. The pain does radiate to the back. Food does aggravate her symptoms. Alleviating factors include: none. The patient was seen by her primary care physician. Davin underwent an ultrasound. These tests demonstrated cholelithiasis. The patient is referred for evaluation and treatment. The patient is being seen by me today at the request of Dr. Ernesto Rubin, OTC CLERK, GEOLOGY PROFESSOR for my opinion and advice regarding Calculus of gallbladder with acute on chronic cholecystitis without obstruction (primary encounter diagnosis) Ruq pain. REVIEW OF SYSTEMS: General: No weight loss, malaise or fevers. Neurological: +RLS, on rx. No history of TIA's, stroke, RECOATING MACHINE OPERATOR tumor, impaired sensorium, hemiplegia, paraplegia or quadraplegia. No neurological symptoms or problems. Respiratory: Positive for: asthma (rx as needed). Cardiovascular: Positive for: hyperlipidemia (on rx) and hypertension (on rx) Negative for: anticoagulation therapy, arrhythmia, atrial fibrillation, CAD, chest pain, CHF, congenital heart defect, DVT/PE, recent MT, murmur/valvular heart disease, open heart surgery and valve surgery. GI: Positive for: GERD (on rx) and irritable bowel syndrome (D) Negative for: abdominal pain, dysphagia, hepatitis, inflammatory bowel disease, liver disease, nausea, pancreatitis, vomiting and ETOH >2 drinks/day. : No history of dysuria, frequency or incontinence, stones or chronic kidney disease. No difficulty urinating, nocturia > 1 time per night or hematuria. DESIGN ENGINEER PRODUCTS: Negative for abnormal vaginal bleeding, abnormal vaginal discharge. Endocrine: Positive for: diabetes mellitus. Patient's diabetes mellitus is controlled by oral agents. Negative for: hypothyroidism. Hematology: No history of bleeding or clotting disorder. Patient is not taking anti-coagulation or platelet medications. No history of hematological symptoms or problems. Oncology: +hx right breast cancer s/p lumpectomy, s/p XRT, denies chemo Psych: Positive for: anxiety and depression. Musculoskeletal: Positive for: back pain (on rx). Skin: Negative for lesions, rash and itching. PAST MEDICAL HISTORY Diagnosis Date Asthma Breast cancer, right breast (HCC) 07/02/2015 Depression Diabetes mellitus (HCC) Fibromyalgia AUGUSTINA (generalized anxiety disorder) GERD (gastroesophageal reflux disease) Hiatal hernia High cholesterol Hypertension IBS (irritable bowel syndrome) RLS (restless legs syndrome) Type 2 diabetes mellitus without complication, without long-term current use of insulin ([facility]) 04/07/2023 Vitamin D deficiency PAST SURGICAL HISTORY Procedure Laterality Date BX/EXC LYMPH NODE OPEN DEEP AXILLARY NODE Right 05/01/2015 SECTION HX 1976, 1985, 1990 INJ RADIOACTIVE TRACER FOR ID OF SENTINEL NODE Right 05/01/2015 MASTECTOMY, PARTIAL Right 05/01/2015 PAST SURGICAL HISTORY OF 04/16/2015 Right Lumpectomy w/lump node biopsy PERQ BREAST LOC DEVICE PLACEMT 1ST LES US IMAG Right 05/01/2015 REMOVE TONSILS/ADENOIDS,<12 Y/O FAMILY HISTORY Problem Relation Age of Onset Heart Attack Mother Stroke Mother Stroke Sister Heart Attack Sister Heart Attack Brother None Other Patient is adopted, does not know hx Social History Tobacco Use Smoking status: Former Packs/day: 0.20 Years: 10.00 Pack years: 2.00 Types: Cigarettes Quit date: 06/23/1985 Years since quittin.8 Smokeless tobacco: Never Vaping Use Vaping Use: Never used Substance Use Topics Alcohol use: No Drug use: No Prior to Admission medications as of 04/07/23 1054 Medication Sig Last Dose Taking naltrexone 5 mg capsule (CPD) Take 5 mg by mouth once daily. Taking Yes cyanocobalamin, vitamin B-12, (VITAMIN B12 ORAL) Take by mouth. Taking Yes beta-carotene,A,-vits C,E/mins (OCUVITE ORAL) Take by mouth. Taking Yes [id number] ACID ORAL Take by mouth. Taking Yes rosuvastatin (CRESTOR) 5 mg tablet Take 5 mg by mouth once daily. Taking Yes fexofenadine (FLOR) 180 mg tablet Take 180 mg by mouth once daily. Taking Yes acetaminophen (TYLENOL ARTHRITIS ORAL) Take 650 mg by mouth twice daily. Taking Yes Milk Thistle 175 mg tab Take 175 mg by mouth. Taking Yes niacin ER (NIASPAN) 500 mg tablet Take 500 mg by mouth. Taking Yes meloxicam (MOBIC) 15 mg tablet Take 1 tablet by mouth once daily. Taking Yes methocarbamol (ROBAXIN-750) 750 mg tablet Take 1 tablet by mouth twice daily as needed. Taking Yes empagliflozin (JARDIANCE ORAL) Take by mouth. Taking Yes sertraline (ZOLOFT) 50 mg tablet Take 50 mg by mouth once daily. Taking Yes valsartan (DIOVAN) 80 mg tablet Take 80 mg by mouth once daily. Taking Yes Alpha Lipoic Acid 300 mg cap Take 300 mg by mouth twice daily. Taking Yes vitamin b complex tab Take 1 tablet by mouth once daily. Taking Yes Berb Tucker/herbal complex no.18 (BERBERINE-HERBAL COMB NO.18 ORAL) Take 500 mg by mouth twice daily. Taking Yes Biotin 10,000 mcg cap Take 1 capsule by mouth twice daily. Taking Yes MALIC ACID ORAL Take 600 mg by mouth twice daily. Taking Yes dicyclomine (BENTYL) 20 mg tablet Take 20 mg by mouth every 6 hours. Taking Yes pramipexole (MIRAPEX) 0.125 mg tablet Take 0.125 mg by mouth three times daily. Taking Yes Flaxseed Oil 1,000 mg cap Take by mouth. Taking Yes MAGNESIUM MALATE, BULK, MISC Taking Yes albuterol HFA (PROVENTIL HFA, VENTOLIN HFA) 90 mcg/actuation inhaler Inhale 2 Puffs as instructed every 4 hours as needed. Taking Yes montelukast (SINGULAIR) 10 mg tablet Take 1 tablet by mouth daily at bedtime. Taking Yes COQ10, UBIQUINOL, ORAL Take 1 tablet by mouth once daily. Taking Yes Garlic cap Take 1 tablet by mouth daily at bedtime. Taking Yes L-LYSINE ORAL Take 1 tablet by mouth once daily. Taking Yes TURMERIC, BULK, MISC 3 tablets twice daily. Taking Yes omeprazole (PRILOSEC) 40 mg capsule Take 40 mg by mouth once daily. Taking Yes No medication comments found. ALLERGIES Allergen Reactions Metformin GI Upset Penicillin G Hives Sulfa (Sulfonamide * Hives Objective PHYSICAL EXAM: General: alert and oriented (x3), healthy appearance and obese. Pertinent negatives noted - not distressed. Skin: normal color, no rash or lesions. HEENT: EOM intact and pupils equal round. Pertinent negatives noted - no carotid bruit. Cardiovascular: regular rate and rhythm, normal S1 and S2, no rub, murmurs, or gallop. Respiratory: normal breath sounds, no wheezes or crackles. No chest wall deformity or tenderness. Abdomen: soft. Pertinent negatives noted - not tender. Extremities: no deformity, no edema or tenderness, no joint swelling or clubbing. Neurological: normal cognition and motor skills. Gait normal. No weakness or sensory deficit. PAIN ASSESSMENT: VITALS: BP 102/70 Pulse 64 Temp (Src) 98 (Temporal) Resp 18 Ht 5' 4.5 (1.64m) Wt 208 lb (94.3kg) SpO2 95% BMI 35.16 kg/(m^2). Diagnostic tests reviewed for today's visit: Lab Value Units Date High Low HB 15.3 g/dL 04/01/2023 15.5 11.5 HCT 47.2 % 04/01/2023 46.0 36.0 WBC 7.76 k/uL 04/01/2023 11.00 3.70 PLT 241 k/uL 04/01/2023 400 150 NA 140 mmol/L 04/01/2023 144 136 K 4.2 mmol/L 04/01/2023 5.1 3.7 GLUC 174 mg/dL 04/01/2023 99 74 BUN 18 mg/dL 04/01/2023 21 7 CREAT 0.68 mg/dL 04/01/2023 0.96 0.58 PTSEC No results within date range. INR No results within date range. APTT No results within date range. ALT No results within date range. AST No results within date range. TBILI No results within date range. TSH No results within date range. Lab Value Units Date High Low HCGQT No results within date range. UHCG No results within date range. HCG, BODY* No results within date range. Lab Value Units Date High Low ABORHD No results within date range. ABSCREEN No results within date range. Hemoglobin A1C (%) Date Value 04/01/2023 6.8 02/17/2017 6.2 09/15/2016 6.1 HBA1C, [place] (%) Date Value 03/10/2011 5.6 11/14/2010 5.8 Recent Results (from the past 8760 hour(s)) ECG COMPLETE Collection Time: 04/07/23 11:36 AM Result Value Ventricular Rate 66 Atrial Rate 66 P-R Interval 172 QRS Duration 72 QT Interval 400 QTC Calculation (Bazett) 419 Calculated P Carrier 48 Calculated R Carrier -43 Calculated T Carrier -11 Impression NORMAL SINUS RHYTHM LEFT AXIS DEVIATION INFERIOR MYOCARDIAL INFARCTION , AGE UNDETERMINED ANTERIOR MYOCARDIAL INFARCTION , AGE UNDETERMINED ABNORMAL ECG No results found for this or any previous visit (from the past 15197 hour(s)). Assessment Patient has the following medical conditions which may affect ayala-operative course: Malignant neoplasm of upper-outer quadrant of right female breast ([facility]) Assessment: s/p lumpectomy and s/p XRT, denies chemo Depression Assessment: and anxiety, stable on rx per pt DDD (degenerative disc disease), lumbar Assessment: on rx, following pain management Type 2 diabetes mellitus without complication, without long-term current use of insulin ([facility]) Assessment: controlled on oral agent Hemoglobin A1C (%) Date Value 04/01/2023 6.8 02/17/2017 6.2 GERD (gastroesophageal reflux disease) Assessment: controlled on rx Irritable bowel syndrome with diarrhea Assessment: diet controlled per pt Asthma Assessment: rx as needed RLS (restless legs syndrome) Assessment: controlled on rx Class 2 severe obesity due to excess calories with serious comorbidity and body mass index (BMI) of35.0 to 35.9 in adult ([facility]) Assessment: Body mass index is 35.15 kg/m . Former smoker Assessment: 0.25ppd/10 years, denies asthma or COPD Rosario Activity Status Index: METS: Climb a flight of stairs or walk up a hill (5.50 METs) DASI Score: 5.5 Patient denies any chest pain or undue shortness of breath with the above physical activity. Clinical Frailty Scale: 3. Well, with treated comorbid disease STOP-Bang Score: Snores loudly BMI greater than 35 kg/m^2 Patient over 50 years old Has a large neck Denies feeling tired, fatigued, or sleepy during the daytime Has not been observed to stop breathing or choking/gasping during sleep Denies having high blood pressure Non-male patient STOP-Bang Score: 4 [id number] Score: Age: 65-74 Sex: female CHF history: No Hypertension history: Yes Stroke/TIA/thromboembolism history: No Vascular disease history: No Diabetes history: Yes [id number] Score: 4 ARISCAT Score: Age: 51-80 Preoperative SpO2: 91-95% Respiratory infection in the last month: No Preoperative anemia: No Surgical incision: upper abdominal Duration of surgery: <2 hrs Emergency procedure: No ARISCAT Score: 26 ASA Class: 3 ANESTHESIA FINDINGS: Intubation History: No history of difficult intubation Significant Anesthesia Considerations: none Airway History: No history of difficult airway I - PHYSICAL EVALUATION AIRWAY Patient intubated: No. Tracheostomy tube not present Mallampati: III. TM distance: >3 FB. Neck ROM: limited flexion and extension. Mouth opening: adequate. Short neck: no. Thick neck: yes Nguyen present: no Lip Bite Test: II Microretrognathia/Micronagthia/Recessed Chin: No DENTAL Dental findings: teeth intact. II - ANESTHESIA PLAN ASA Score: 3 Anesthetic Plan: other Anesthetic plan additional comments: *PACC/TCI - anesthesia choice. Beta Adama Monitoring Plan Post Procedure Analgesic Plan Informed Consent Anesthetic risks, benefits, alternatives, personnel and consent discussed: yes. Patient / Responsible Republican agrees to proceed: yes Patient / Surrogate agrees to blood products: blood products not planned Discussed the possibility of lip / dental damage: yes Prepared for Surgery: optimally prepared for surgery. CONSULTS: Patient does not require consults for optimization at this time Planned Anesthetic: other anesthesia choice The Following Tests/Procedures Have Been Initiated: Orders Placed This Encounter naltrexone 5 mg capsule (CPD) Sig: Take 5 mg by mouth once daily. cyanocobalamin, vitamin B-12, (VITAMIN B12 ORAL) Sig: Take by mouth. beta-carotene,A,-vits C,E/mins (OCUVITE ORAL) Sig: Take by mouth. [id number] ACID ORAL Sig: Take by mouth. ECG COMPLETE Standing Status: Future Number of Occurrences: 1 Standing Expiration Date: 04/07/2024 ECG COMPLETE Order Comments: Ordered by an unspecified provider Instructions Given to Patient: Instructions located in the after visit summary. Patient given verbal and written preop instructions and voices comprehension and compliance. SIGNATURE: Lisandro Escobar APRN.CNP PATIENT NAME: Davin Arriola DATE: April 07, 2023 TIME: 10:54 AM PAGER/CONTACT #: documented in this encounterOhio[facility]06-23-2023 NoteHNO ID: [id number] Author: Nakia Otero PA-C Service: ? Author Type: Physician Hand Sewer Type: Progress Notes Filed: 2023 3:18 PM Note Text: Patient logged onto Virtual PACC appointment and connected to Zoom. Patient could not get Zoom audio to work, tried to call patient and have her put her phone on speaker while we do Zoom video, but patient is hard of hearing and could not hear with phone on speaker. Attempted to connect via Amwell but patient could not connect to that either. Patient is requesting to be rescheduled in person.[facility]06-23-2023 Miscellaneous Notes* Telephone Encounter - Nakia Otero PA-C - 2023 3:18 PM EDT Patient logged onto Virtual PACC appointment and connected to Zoom. Patient could not get Zoom audio to work, tried to call patient and have her put her phone on speaker while we do Zoom video, but patient is hard of hearing and could not hear with phone on speaker. Attempted to connect via Amwell but patient could not connect to that either. Patient is requesting to be rescheduled in person. Patient lives in [place], [place]. Please reschedule patient at [facility] in one of the openings for nextweek. documented in this encounterOhiohealth [facility] Center06-19-2023 NoteHNO ID: [id number] Author: Aries Davidson MD Service: ? Author Type: Physician Type: Progress Notes Filed: 03/29/2023 2:52 PM Note Text: HISTORY AND PHYSICAL Davin Arriola 1955 REFERRING PHYSICIAN: Ernesto Rubin, GEOLOGY PROFESSOR CHIEF COMPLAINT: Consult (RUQ pain) HPI: Davin is a 67 year old female with a complaint of right upper quadrant pain. The patient has had symptoms of right upper quadrant pain for few months. The symptoms have maintained, over the past few months. The pain does radiate to the back. Food does aggravate her symptoms. Alleviating factors include: none. The patient was seen by her primary care physician. Davin underwent an ultrasound. These tests demonstrated cholelithiasis. The patient is referred for evaluation and treatment. The patient is being seen by me today at the request of Dr. Ernesto Rubin, OTC CLERK, GEOLOGY PROFESSOR for my opinion and advice regarding Calculus of gallbladder with acute on chronic cholecystitis without obstruction (primary encounter diagnosis) Ruq pain. SIGNIFICANT MEDICAL PROBLEMS: PAST MEDICAL HISTORY Diagnosis Date Asthma Breast cancer, right breast (HCC) 07/02/2015 Depression Diabetes mellitus (HCC) Fibromyalgia AUGUSTINA (generalized anxiety disorder) GERD (gastroesophageal reflux disease) Hiatal hernia High cholesterol Hypertension IBS (irritable bowel syndrome) RLS (restless legs syndrome) Vitamin D deficiency OPERATIONS: PAST SURGICAL HISTORY Procedure Laterality Date BX/EXC LYMPH NODE OPEN DEEP AXILLARY NODE Right 05/01/2015 SECTION HX 1976, 1985, 1990 INJ RADIOACTIVE TRACER FOR ID OF SENTINEL NODE Right 05/01/2015 MASTECTOMY, PARTIAL Right 05/01/2015 PAST SURGICAL HISTORY OF 04/16/2015 Right Lumpectomy w/lump node biopsy PERQ BREAST LOC DEVICE PLACEMT [address] [place] [id number] US IMAG Right 05/01/2015 REMOVE TONSILS/ADENOIDS,<12 Y/O CURRENT MEDICATIONS: Current Outpatient Medications Medication Sig Dispense Refill rosuvastatin (CRESTOR) 5 mg tablet Take 5 mg by mouth once daily. fexofenadine (FLOR) 180 mg tablet Take 180 mg by mouth once daily. acetaminophen (TYLENOL ARTHRITIS ORAL) Take 650 mg by mouth twice daily. Milk Thistle 175 mg tab Take 175 mg by mouth. Magnesium Oxide 250 mg magnesium tab Take 250 mg by mouth. niacin ER (NIASPAN) 500 mg tablet Take 500 mg by mouth. naltrexone 5 mg capsule (CPD) Take 1 capsule by mouth once daily. 30 capsule 2 meloxicam (MOBIC) 15 mg tablet Take 1 tablet by mouth once daily. 30 tablet 1 methocarbamol (ROBAXIN-750) 750 mg tablet Take 1 tablet by mouth twice daily as needed. 60 tablet 1 empagliflozin (JARDIANCE ORAL) Take by mouth. sertraline (ZOLOFT) 50 mg tablet Take 50 mg by mouth once daily. valsartan (DIOVAN) 80 mg tablet Take 80 mg by mouth once daily. Alpha Lipoic Acid 300 mg cap Take 300 mg by mouth twice daily. vitamin b complex tab Take 1 tablet by mouth once daily. Berb Tucker/herbal complex no.18 (BERBERINE-HERBAL COMB NO.18 ORAL) Take 500 mg by mouth twice daily. Biotin 10,000 mcg cap Take 1 capsule by mouth twice daily. MALIC ACID ORAL Take 600 mg by mouth twice daily. dicyclomine (BENTYL) 20 mg tablet Take 20 mg by mouth every 6 hours. pramipexole (MIRAPEX) 0.125 mg tablet Take 0.125 mg by mouth three times daily. Flaxseed Oil 1,000 mg cap Take by mouth. MAGNESIUM MALATE, BULK, MISC albuterol HFA (PROVENTIL HFA, VENTOLIN HFA) 90 mcg/actuation inhaler Inhale 2 Puffs as instructed every 4 hours as needed. 1 Inhaler 0 montelukast (SINGULAIR) 10 mg tablet Take 1 tablet by mouth daily at bedtime. 30 tablet 5 COQ10, UBIQUINOL, ORAL Take 1 tablet by mouth once daily. Garlic cap Take 1 tablet by mouth daily at bedtime. L-LYSINE ORAL Take 1 tablet by mouth once daily. TURMERIC, BULK, MISC 3 tablets twice daily. omeprazole (PRILOSEC) 40 mg capsule Take 40 mg by mouth once daily. calcium polycarbophil (FIBERCON) 625 mg tablet Take 625 mg by mouth twice daily. losartan (COZAAR) 25 mg tablet Take 25 mg by mouth once daily. (Patient not taking: No sig reported) VITAMIN D 50,000 unit capsule TAKE ONE CAPSULE BY MOUTH ONCE A WEEK 12 capsule 0 LACTOSE-REDUCED FOOD/FIBER (NUHRXP-ODZE-KYEB ORAL) Take 1 tablet by mouth twice daily. VIT C/E/B6/FA/B12/ARGIN/PEP XT (CARDIOTEK, BIOPERINE, ORAL) Take 1 tablet by mouth twice daily. Vitamin A 8,000 unit capsule Take 8,000 Units by mouth twice daily. cetirizine (ZYRTEC) 10 mg tablet Take 10 mg by mouth once daily. No current facility-administered medications for this visit. ALLERGIES: Metformin, Penicillin G, and Sulfa (Sulfonamide Antibiotics) PERSONAL HISTORY: Social History Tobacco Use Smoking status: Former Packs/day: 0.20 Years: 10.00 Pack years: 2.00 Types: Cigarettes Quit date: 06/23/1985 Years since quittin.7 Smokeless tobacco: Never Vaping Use Vaping Use: Never used Substance Use Topics Alcohol use: No Drug use: No FAMILY HISTORY: FAMILY HISTORY Pr (more content not included)...[facility]05-28-2023 Miscellaneous Notes* Telephone Encounter - Den Fairbanks APRN.CNP - 03/07/2023 4:05 PM EDT The following approved medication requests have been transmitted electronically. Requested Prescriptions Signed Prescriptions Disp Refills naltrexone 5 mg capsule (CPD) 30 capsule 2 Sig: Take 1 capsule by mouth once daily. Den Fairbanks APRN.CNP * Telephone Encounter - Margie Rain RN - 03/05/2023 3:19 PM EDT Provider: Ran Fairbanks APRN.CNP patient requesting refill via [facility] [employer] . Please E-Scribe Last OV: 12-10-22 with Ran Fairbanks APRN.CNP Future OV: N/A Last prescribed: 12-10-22 Requested Prescriptions Pending Prescriptions Disp Refills naltrexone 5 mg capsule (CPD) 30 capsule 2 Sig: Take 1 capsule by mouth once daily. Request sent to provider to review ANSELMO Moreno, RN March 05, 2023 3:20 PM documented in this encounterOhio[facility]05-12-2023 Miscellaneous Notes* Telephone Encounter - Den Fairbanks APRN.CNP - 02/19/2023 1:45 PM EDT The following approved medication requests have been transmitted electronically. Requested Prescriptions Signed Prescriptions Disp Refills meloxicam (MOBIC) 15 mg tablet 30 tablet 1 Sig: Take 1 tablet by mouth once daily. Authorizing Provider: DEN FAIRBANKS methocarbamol (ROBAXIN-750) 750 mg tablet 60 tablet 1 Sig: Take 1 tablet by mouth twice daily as needed. Authorizing Provider: DEN FAIRBANKS APRN.CNP * Telephone Encounter - Gabbi Doyle RN - 02/19/2023 10:02 AM EDT Provider: Dr. Juan Jose Hurtado and Den Fairbanks CNP patient requesting refill. Please E-Scribe Last OV: 12/10/2022 with Den Fairbanks CNP Future OV: N/A Last prescribed: 12/14/2022 Requested Prescriptions Pending Prescriptions Disp Refills meloxicam (MOBIC) 15 mg tablet 30 tablet 1 Sig: Take 1 tablet by mouth once daily. methocarbamol (ROBAXIN-750) 750 mg tablet 60 tablet 1 Sig: Take 1 tablet by mouth twice daily as needed. Request sent to provider to review Gabbi Doyle RN documented in this encounterOhiohealth [facility] Center03-06-2023 Miscellaneous Notes* Telephone Encounter - Den Fairbanks APRN.CNP - 12/14/2022 9:15 AM EST The following approved medication requests have been transmitted electronically. Requested Prescriptions Signed Prescriptions Disp Refills meloxicam (MOBIC) 15 mg tablet 30 tablet 1 Sig: Take 1 tablet by mouth once daily. Authorizing Provider: DEN FAIRBANKS methocarbamol (ROBAXIN-750) 750 mg tablet 60 tablet 1 Sig: Take 1 tablet by mouth twice daily as needed. Authorizing Provider: DEN FAIRBANKS APRN.MINOR documented in this encounterOhiohealth [facility] Medical Center03-02-2023 NoteHNO ID: [id number] Author: Den Fairbanks APRN.CNP Service: ? Author Type: Nurse Practitioner Type: Progress Notes Filed: 12/11/2022 9:16 AM Note Text: SUBJECTIVE: [facility] a follow up appointment for back Since the last visit, Davin Arriola states the pain has been worse Current pain intensity is 8 on a scale of 0-10. Pain located in Back area and radiates down the posterior leg, down the posterolateral leg, and down the anterior leg. Pain described as aching The patient Reports weakness, numbness, leg pain, and leg weakness. Symptoms interfere with physical activity. Pain is exacerbated by pt states pain in all positions. Pain is mitigated by lying down. Pt states that none of the previous procedures ,injection , burn nerve worked The medications are effective and ineffective. Pt had extra strength tylenol REVIEW OF SYSTEMS: Constitutional: (-) Weight Gain (-) Weight Loss (-) Fatigue Cardiovascular: (-) hx heart surgery (-) Pacemaker Respiratory: (-) Shortness of Breath (-) Cough (-) Snoring Gastrointestinal: (-) Incontinence (-) Diarrhea (-) Constipation (-) Nausea/Vomiting Endocrine: (-) Thyroid Disorder (-) Diabetes Hematologic: (-) Prolonged Bleeding (-) Easy Bruising Genitourinary: (-) Incontinence (-) Frequency (-) Urinary Urgency Skin: (-) Open sores/wound Neurologic: (-) Headache (-) Double Vision Psychiatric: (-) Depression (-) Anxiety (-) Personal History of Alcohol or Substance Abuse (-) Family History of Alcohol or Substance Abuse CHIEF COMPLAINT:Patient presents with: Pain: Follow up back pain OBJECTIVE: SpO2 99% PHYSICAL EXAMINATION: General appearance: Well appearing, in no acute distress, alert and oriented x3 Skin: Skin color, texture, turgor normal, no rashes or lesions Neck: No pain to palpation over the cervical paraspinous muscles. No pain with neck flexion, extension, or lateral flexion Cardiovascular: Regular, rate and rhythm Lungs: Normal respiratory rate and rhythm, Lungs clear to auscultation Back: Intact range of motion with pain reproduction. Facet:pos lumbar facet loading Straight Leg Raise: sitting neg SI JOINT: neg PSIS tenderness Spine: Reports Tenderness on palpation: Lumbar= axial, paravertebrals, paraspinals Extremities: No deformities, edema, or skin discoloration. Good capillary refill. Neuro: No loss of sensation is noted. Motor skills intact Station and Gait: antalgic gait Motor: Exhibits full strength in all four extremities. Trigger points: lumbosacral spine muscles. ASSESSMENT: Assessment : Patient presents for follow-up visit Patient has a chronic history of low back pain that radiates down the bilateral lower extremities intermittently to the feet She reports that her right foot will swell She experiences neuropathy in the legs and feet. She was unable to tolerate gabapentin and Lyrica due to the side effects She saw Dr. Cobian for surgical consult and reports that she is not a surgical candidate Patient is inquiring about spinal cord stimulator. Discussed the process of the stimulator and brochure given. Discussed that she would not do schedule an appointment with Dr. Rendon then schedule time for spinal cord stimulator trial. If good results then the implant will be down at main campus with Dr. Chau. Patient is currently taking alpha lipoic acid 800 mg daily Discussed a trial of naltrexone 5 mg for chronic pain. Patient would like to try Encounter Diagnosis ICD-10-CM 1. Lumbar spondylosis M47.816 2. Facet arthropathy M47.819 3. Lumbar radiculopathy M54.16 PDMP website checked and validated. All prescriptions have been APPROPRIATELY filled. No suspicious activity was identified. 12/10/2022 by Den Fairbanks APRN.GEOLOGY PROFESSOR Narcotic Agreement reviewed and signed?: N/A on December 10, 2022 The pain panel was N/A Discussion: A discussion was entertained regarding multicomponent back pain source. Discussed conservative options and focus on improvement of function. Discussed the rationale behind interventional approach and how it can facilitate improvement of pain but also diagnostic information that procedures provide. 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 PLAN: Injection history was reviewed. Medication use and compliance were reviewed. 1. Continue medication management through the Pain Management Center 2. The following approved medication requests have been transmitted electronically. Requested Prescriptions Signed Prescriptions Disp Refills naltrexone 5 mg capsule (CPD) 30 capsule 2 Sig: Take 1 capsule by mouth once daily. 3. Interventional procedure options discussed. none 4. Encouraged regular home exercise program. 5. Discussed SCS process. Patient will let us know if she wants to proceed. Order with n (more content not included)...[facility] 12-10-2022 History of Present illness Narrative* Den Fairbanks APRN.[facility] - 12/10/2022 2:48 PM EST SUBJECTIVE: Davin Arriola presents to [facility] Pain Management Department for a follow up appointment for back Since the last visit, Davin Arriola states the pain has been worse Current pain intensity is 8 on a scale of 0-10. Pain located in Back area and radiates down the posterior leg, down the posterolateral leg, and down the anterior leg. Pain described as aching The patient Reports weakness, numbness, leg pain, and leg weakness. Symptoms interfere with physical activity. Pain is exacerbated by pt states pain in all positions. Pain is mitigated by lying down. Pt states that none of the previous procedures ,injection , burn nerve worked The medications are effective and ineffective. Pt had extra strength tylenol REVIEW OF SYSTEMS: Constitutional: (-) Weight Gain (-) Weight Loss (-) Fatigue Cardiovascular: (-) hx heart surgery (-) Pacemaker Respiratory: (-) Shortness of Breath (-) Cough (-) Snoring Gastrointestinal: (-) Incontinence (-) Diarrhea (-) Constipation (-) Nausea/Vomiting Endocrine: (-) Thyroid Disorder (-) Diabetes Hematologic: (-) Prolonged Bleeding (-) Easy Bruising Genitourinary: (-) Incontinence (-) Frequency (-) Urinary Urgency Skin: (-) Open sores/wound Neurologic: (-) Headache (-) Double Vision Psychiatric: (-) Depression (-) Anxiety (-) Personal History of Alcohol or Substance Abuse (-) Family History of Alcohol or Substance Abuse CHIEF COMPLAINT:Patient presents with: Pain: Follow up back pain OBJECTIVE: SpO2 99% PHYSICAL EXAMINATION: General appearance: Well appearing, in no acute distress, alert and oriented x3 Skin: Skin color, texture, turgor normal, no rashes or lesions Neck: No pain to palpation over the cervical paraspinous muscles. No pain with neck flexion, extension, or lateral flexion Cardiovascular: Regular, rate and rhythm Lungs: Normal respiratory rate and rhythm, Lungs clear to auscultation Back: Intact range of motion with pain reproduction. Facet:pos lumbar facet loading Straight Leg Raise: sitting neg SI JOINT: neg PSIS tenderness Spine: Reports Tenderness on palpation: Lumbar= axial, paravertebrals, paraspinals Extremities: No deformities, edema, or skin discoloration. Good capillary refill. Neuro: No loss of sensation is noted. Motor skills intact Station and Gait: antalgic gait Motor: Exhibits full strength in all four extremities. Trigger points: lumbosacral spine muscles. ASSESSMENT: Assessment : Patient presents for follow-up visit Patient has a chronic history of low back pain that radiates down the bilateral lower extremities intermittently to the feet She reports that her right foot will swell She experiences neuropathy in the legs and feet. She was unable to tolerate gabapentin and Lyrica due to the side effects She saw Dr. Cobian for surgical consult and reports that she is not a surgical candidate Patient is inquiring about spinal cord stimulator. Discussed the process of the stimulator and brochure given. Discussed that she would not do schedule an appointment with Dr. Rendon then schedule time for spinal cord stimulator trial. If good results then the [place]. Patient is currently taking alpha lipoic acid 800 mg daily Discussed a trial of naltrexone 5 mg for chronic pain. Patient would like to try Encounter Diagnosis ICD-10-CM 1. Lumbar spondylosis M47.816 2. Facet arthropathy M47.819 3. Lumbar radiculopathy M54.16 PDMP website checked and validated. All prescriptions have been APPROPRIATELY filled. No suspiciousactivity was identified. 12/10/2022 by Den Fairbanks APRN.GEOLOGY PROFESSOR Narcotic Agreement reviewed and signed?: N/A on December 10, 2022 The pain panel was N/A Discussion: A discussion was entertained regarding multicomponent back pain source. Discussed conservative options and focus on improvement of function. Discussed the rationale behind interventional approach andhow it can facilitate improvement of pain but also diagnostic information that procedures provide. L brad term use of any opioid pain medication is discouraged in chronic benign pain. PLAN: Injection history was reviewed. Medication use and compliance were reviewed. 1. Continue medication management through the Pain Management Center 2. The following approved medication requests have been transmitted electronically. Requested Prescriptions Signed Prescriptions Disp Refills naltrexone 5 mg capsule (CPD) 30 capsule 2 Sig: Take 1 capsule by mouth once daily. 3. Interventional procedure options discussed. none 4. Encouraged regular home exercise program. 5. Discussed SCS process. Patient will let us know if she wants to proceed. Order with need to be placed to see Dr. Rendon I spent a total of 30 minutes on the date of the service which included preparing to see the patient, [id number] patient care, completing clinical documentation, performing a medically appropriate examination, counseling and educating the patient/family/caregiver, and ordering medications, tests,or procedures. The above plan and management options were discussed at length with patient. Patient is in agreement with the above and verbalized understanding. Den Fairbanks APRN, CNP December 10, 2022 documented in this encounterOhiohealth [facility] Center02-21-2023 NoteHNO ID: [id number] Author: Leah Montanez Service: ? Author Type: ? Type: Progress Notes Filed: 12/01/2022 2:21 PM Note Text: POPULATION HEALTH NAVIGATION OUTREACH Action/[facility] [place] Support: Called pt to schedule an appt in Pain Management. Lvm for pt to call [phone] for scheduling. Patient Identified by Name and : NO Outreach Outcome/Action Unable to reach patient: Left message Did you use a PCP flex slot to schedule this appointment? No Reason for Outreach Care Gap or Scheduling/Wellness visits Payer: Payor: [employer] / Plan: [employer] DUAL COMPLETE HMO POS SNP / Product Type: Medicare / Care Gap Reviewed:: Specialty Scheduling Reminder: Reminder note to check Health Maintenance for items below Health Maintenance items due: COVID-19 VACCINE(1) Never done HEPATITIS C SCREENING Never done HIV SCREENING Never done DTAP,TDAP,TD(1 - Tdap) Never done COLORECTAL CANCER SCREENING Never done SHINGRIX VACCINE(1 of 2) Never done MAMMOGRAM due on 04/22/2012 DIABETES SCREEN due on 02/18/2020 LIPID SCREEN due on 02/17/2022 BONE DENSITY due on 2022 PNEUMOCOCCAL: 65+(1 - PCV) Never done INFLUENZA(1) due on 06/11/2022 ADVANCE DIRECTIVE DISCUSSION Never done Navigation Signature: Leah Montanez December 01, 2022 2:19 [facility]02-21-2023 History of Present illness Narrative* Leah Montanez - 12/01/2022 2:19 PM EST POPULATION HEALTH NAVIGATION OUTREACH Action/[facility] [place] Support: Called pt to schedule an appt in Pain Management. Lvm for pt to call [phone] for scheduling. Patient Identified by Name and : NO Outreach Outcome/Action Unable to reach patient: Left message Did you use a PCP flex slot to schedule this appointment? No Reason for Outreach Care Gap or Scheduling/Wellness visits Payer: Payor: [employer] / Plan: [employer] DUAL COMPLETE HMO POS SNP / Product Type: Medicare / Care Gap Reviewed:: Specialty Scheduling Reminder: Reminder note to check Health Maintenance for items below Health Maintenance items due: COVID-19 VACCINE(1) Never done HEPATITIS C SCREENING Never done HIV SCREENING Never done DTAP,TDAP,TD(1 - Tdap) Never done COLORECTAL CANCER SCREENING Never done SHINGRIX VACCINE(1 of 2) Never done MAMMOGRAM due on 04/22/2012 DIABETES SCREEN due on 02/18/2020 LIPID SCREEN due on 02/17/2022 BONE DENSITY due on 2022 PNEUMOCOCCAL: 65+(1 - PCV) Never done INFLUENZA(1) due on 06/11/2022 ADVANCE DIRECTIVE DISCUSSION Never done Navigation Signature: Leah Montanez December 01, 2022 2:19 PM documented in this encounterOhiohealth [facility] Center02-21-2023 NotePatient Outreach (NETNAV) DAVIN ARRIOLA ([id number]) 1955 F Date Time Provider Department 12/01/22 NO PCP NETNAV During your visit today, we recorded the following information about you: Leah Nehemiah 12/01/2022 2:21 PM Signed POPULATION HEALTH NAVIGATION OUTREACH Action/[facility] [place] Support: Called pt to schedule an appt in Pain Management. Lvm for pt to call [phone] for scheduling. Patient Identified by Name and : NO Outreach Outcome/Action Unable to reach patient: Left message Did you use a PCP flex slot to schedule this appointment? No Reason for Outreach Care Gap or Scheduling/Wellness visits Payer: Payor: [employer] / Plan: [employer] DUAL COMPLETE HMO POS SNP / Product Type: Medicare / Care Gap Reviewed:: Specialty Scheduling Reminder: Reminder note to check Health Maintenance for items below Health Maintenance items due: COVID-19 VACCINE(1) Never done HEPATITIS C SCREENING Never done HIV SCREENING Never done DTAP,TDAP,TD(1 - Tdap) Never done COLORECTAL CANCER SCREENING Never done SHINGRIX VACCINE(1 of 2) Never done MAMMOGRAM due on 04/22/2012 DIABETES SCREEN due on 02/18/2020 LIPID SCREEN due on 02/17/2022 BONE DENSITY due on 2022 PNEUMOCOCCAL: 65+(1 - PCV) Never done INFLUENZA(1) due on 06/11/2022 ADVANCE DIRECTIVE DISCUSSION Never done Navigation Signature: Leah Montanez December 01, 2022 2:19 PM Allergies As of Date: 12/01/2022 Noted Allergy Reaction METFORMIN 11/16/2022 8 - GI Upset PENICILLIN G 05/14/2011 4 - Hives SULFA (SULFONAMIDE ANTIBIOTICS) 05/14/2011 4 - Hives Date Reviewed: 11/23/2022 Reviewed by: ASAF SegoviaC - Fully Assessed Prescriptions as of 12/01/2022 - pregabalin (LYRICA) 50 mg capsule Take 1 capsule by mouth three times daily for 30 days. - meloxicam (MOBIC) 15 mg tablet Take 1 tablet by mouth once daily. - methocarbamol (ROBAXIN-750) 750 mg tablet Take 1 tablet by mouth twice daily as needed. - empagliflozin (JARDIANCE ORAL) Take by mouth. - sertraline (ZOLOFT) 50 mg tablet Take 50 mg by mouth once daily. - valsartan (DIOVAN) 80 mg tablet Take 80 mg by mouth once daily. - Alpha Lipoic Acid 300 mg cap Take 300 mg by mouth twice daily. - vitamin b complex tab Take 1 tablet by mouth once daily. - Berb Tucker/herbal complex no.18 (BERBERINE-HERBAL COMB NO.18 ORAL) Take 500 mg by mouth twice daily. - Biotin 10,000 mcg cap Take 1 capsule by mouth twice daily. - calcium polycarbophil (FIBERCON) 625 mg tablet Take 625 mg by mouth twice daily. - MALIC ACID ORAL Take 600 mg by mouth twice daily. - dicyclomine (BENTYL) 20 mg tablet Take 20 mg by mouth every 6 hours. - losartan (COZAAR) 25 mg tablet Take 25 mg by mouth once daily. - pramipexole (MIRAPEX) 0.125 mg tablet Take 0.125 mg by mouth three times daily. - Flaxseed Oil 1,000 mg cap Take by mouth. - MAGNESIUM MALATE, BULK, MISC - albuterol HFA (PROVENTIL HFA, VENTOLIN HFA) 90 mcg/actuation inhaler Inhale 2 Puffs as instructed every 4 hours as needed. - VITAMIN D 50,000 unit capsule TAKE ONE CAPSULE BY MOUTH ONCE A WEEK - montelukast (SINGULAIR) 10 mg tablet Take 1 tablet by mouth daily at bedtime. - LACTOSE-REDUCED FOOD/FIBER (GMIHTD-VGUJ-VVXG ORAL) Take 1 tablet by mouth twice daily. - VIT C/E/B6/FA/B12/ARGIN/PEP XT (CARDIOTEK, BIOPERINE, ORAL) Take 1 tablet by mouth twice daily. - COQ10, UBIQUINOL, ORAL Take 1 tablet by mouth once daily. - Garlic cap Take 1 tablet by mouth daily at bedtime. - L-LYSINE ORAL Take 1 tablet by mouth once daily. - NIACIN, NIACINAMIDE, ORAL Take 1 tablet by mouth daily at bedtime. - TURMERIC, BULK, MISC 3 tablets twice daily. - Vitamin A 8,000 unit capsule Take 8,000 Units by mouth twice daily. - cetirizine (ZYRTEC) 10 mg tablet Take 10 mg by mouth once daily. - omeprazole (PRILOSEC) 40 mg capsule Take 40 mg by mouth once daily. Problem List As Of Date 12/01/2022 Noted Resolved Fibromyalgia [M79.7] 06/18/2011 DDD (degenerative disc disease), lumbar [M51.36]06/18/2011 Cervicalgia [M54.2] 06/18/2011 Lumbar radiculopathy [M54.16] 09/14/2011 Nasal septal deviation [J34.2] 08/08/2012 Migraines [G43.909] 01/05/2013 Depression [F32.A] 01/05/2013 Lumbar stenosis [M48.061] 05/08/2013 Lumbar facet arthropathy [M47.816] 05/08/2013 Cancer of breast, intraductal [D05.10] 06/10/2015 ER+ (estrogen receptor positive status) [Z17.0] 06/10/2015 Vitamin D deficiency [E55.9] 06/10/2015 Breast cancer, right breast (HCC) [C50.911] 07/02/2015 Breast cancer, right (HCC) [C50.911] 07/09/2015 Neck pain [M54.2] 08/10/2016 Malignant neoplasm of upper-outer quadrant of r*12/08/2016 Encounter Status:Closed by LEAH MONTANEZ on 12/01/22[facility] 11-19-2022 Miscellaneous Notes* Telephone Encounter - Den Fairbanks APRN.CNP - 11/19/2022 12:40 PM EST The following approved medication requests have been transmitted electronically. Requested Prescriptions Signed Prescriptions Disp Refills meloxicam (MOBIC) 15 mg tablet 30 tablet 1 Sig: Take 1 tablet by mouth once daily. Authorizing Provider: DEN FAIRBANKS methocarbamol (ROBAXIN-750) 750 mg tablet 60 tablet 1 Sig: Take 1 tablet by mouth twice daily as needed. Authorizing Provider: DEN FAIRBANKS APRN.CNP documented in this encounterOhiohealth [facility] Medical Center02-06-2023 NoteHNO ID: [id number] Author: Richmond Cobian MD Service: ? Author Type: Physician Type: Progress Notes Filed: 11/16/2022 3:21 PM Note Text: SPINE SURGERY NEW PATIENT This is an in-person visit. PCP: Ernesto Rubin, OTC CLERK, GEOLOGY PROFESSOR REFERRING PROVIDER: Dr. Hurtado SUBJECTIVE HISTORY OF PRESENT ILLNESS: Davin Arriola is a 67 year old female presenting alone Complains of low back > bilateral thigh pain not clear dermatomal distribution. The pain is more worse with activity. It is relieved with rest. Conservative management offering mild relief. Patient described pain as aching in quality. She denies weakness bowel bladder incontinence. Complains of neck, shoulder, back, and knee pain. She states she also experiences restless legs. CHIEF COMPLAINT: lower back pain PRECIPITATING EVENT: None DURATION OF SYMPTOMS: greater than 24 months PAIN EVALUATION 11/15/2022 0317 Pain Level: 6 Pain Location: Back-Lower Description: Aching;Cramping;Radiating;Sharp;Sore;Spasm;Stiffness;Throbbing Duration Amount of Time: 24 Duration Units: Months Frequency: Continuous Intervention/Comfort measure: Medication;Reposition;Relaxation;Distractions;Positioning Pain Radiation: From the neck to the back, shoulder, knee, and legs. Aggravating Factors: Standing, walking, and sitting for short times Alleviating Factors: a hot shower Pain Ratio: Pain in the legs is greater in the back than the front; the back pain is greater than neck, legs, and knees DERMATOMAL DISTRIBUTION: Not applicable AMBULATORY STATUS: with pain; uses shopping cart to relieve pain at the store ANTIPLATELET OR ANTICOAGULATION STATUS: No PREVIOUS CONSERVATIVE TREATMENTS: OTC NSAIDS for 3 Months or Greater (Ibuprofen) Muscle Relaxants PREVIOUS SPINAL SURGERY: None ACTIVE PROBLEM LIST Fibromyalgia Ddd (Degenerative Disc Disease), Lumbar Cervicalgia Lumbar Radiculopathy Nasal Septal Deviation Migraines Depression Lumbar Stenosis Lumbar Facet Arthropathy Cancer of Breast, Intraductal Er+ (Estrogen Receptor Positive Status) Vitamin D Deficiency Breast Cancer, Right Breast (Hcc) Breast Cancer, Right (Hcc) Neck Pain 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) PAST MEDICAL HISTORY Diagnosis Date Asthma Breast cancer, right breast (HCC) 07/02/2015 Depression Fibromyalgia High cholesterol Hypertension PAST SURGICAL HISTORY Procedure Laterality Date BX/EXC LYMPH NODE OPEN DEEP AXILLARY NODE Right 05/01/2015 SECTION HX 1976, 1985, 1990 INJ RADIOACTIVE TRACER FOR ID OF SENTINEL NODE Right 05/01/2015 MASTECTOMY, PARTIAL Right 05/01/2015 PAST SURGICAL HISTORY OF 04/16/2015 Right Lumpectomy w/lump node biopsy PERQ BREAST LOC DEVICE PLACEMT 1ST [facility] US IMAG Right 05/01/2015 REMOVE TONSILS/ADENOIDS,<12 Y/O FAMILY HISTORY Problem Relation Age of Onset None Other Patient is adopted, does not know hx Social History Tobacco Use Smoking status: Former Packs/day: 0.20 Years: 10.00 Pack years: 2.00 Types: Cigarettes Quit date: 06/23/1985 Years since quittin.4 Smokeless tobacco: Never Substance Use Topics Alcohol use: No Drug use: No ALLERGIES Allergen Reactions Metformin GI Upset Penicillin G Hives Sulfa (Sulfonamide * Hives MEDICATIONS: meloxicam (MOBIC) 15 mg tablet Take 1 tablet by mouth once daily. methocarbamol (ROBAXIN-750) 750 mg tablet Take 1 tablet by mouth twice daily as needed. empagliflozin (JARDIANCE ORAL) Take by mouth. sertraline (ZOLOFT) 50 mg tablet Take 50 mg by mouth once daily. valsartan (DIOVAN) 80 mg tablet Take 80 mg by mouth once daily. Alpha Lipoic Acid 300 mg cap Take 300 mg by mouth twice daily. vitamin b complex tab Take 1 tablet by mouth once daily. Berb Tucker/herbal complex no.18 (BERBERINE-HERBAL COMB NO.18 ORAL) Take 500 mg by mouth twice daily. Biotin 10,000 mcg cap Take 1 capsule by mouth twice daily. calcium polycarbophil (FIBERCON) 625 mg tablet Take 625 mg by mouth twice daily. MALIC ACID ORAL Take 600 mg by mouth twice daily. dicyclomine (BENTYL) 20 mg tablet Take 20 mg by mouth every 6 hours. pramipexole (MIRAPEX) 0.125 mg tablet Take 0.125 mg by mouth three times daily. Flaxseed Oil 1,000 mg cap Take by mouth. MAGNESIUM MALATE, BULK, MISC albuterol HFA (PROVENTIL HFA, VENTOLIN HFA) 90 mcg/actuation inhaler Inhale 2 Puffs as instructed every 4 hours as needed. VITAMIN D 50,000 unit capsule TAKE ONE CAPSULE BY MOUTH ONCE A WEEK montelukast (SINGULAIR) 10 mg tablet Take 1 tablet by mouth daily at bedtime. LACTOSE-REDUCED FOOD/FIBER (LOUILZ-SEIQ-GYGM ORAL) Take 1 tablet by mouth twice daily. VIT C/E/B6/FA/B12/ARGIN/PEP XT (CARDIOTEK, BIOPERINE, ORAL) Take 1 tablet by mouth twice daily. COQ10, UBIQUINOL, ORAL Take 1 tablet by mouth once daily. Garlic cap Take 1 tablet by mouth daily at bedtime. L-LYSINE ORAL Take 1 tablet by mouth once daily. NIACIN, NIACINAMIDE, ORA (more content not included)...[facility]02-06-2023 History of Present illness Narrative* Richmond Cobian MD - 11/16/2022 2:53 PM EST Images from the original note were not included. SPINE SURGERY NEW PATIENT This is an in-person visit. PCP: ARLYN JoynerP, GEOLOGY PROFESSOR REFERRING PROVIDER: Dr. Hurtado SUBJECTIVE HISTORY OF PRESENT ILLNESS: Davin Arriola is a 67 year old female presenting alone Complains of low back > bilateral thigh pain not clear dermatomal distribution. The pain is moreworse with activity. It is relieved with rest. Conservative management offering mild relief. Patient described pain as aching in quality. She denies weakness bowel bladder incontinence. Complains of neck, shoulder, back, and knee pain. She states she also experiences restless legs. CHIEF COMPLAINT: lower back pain PRECIPITATING EVENT: None DURATION OF SYMPTOMS: greater than 24 months PAIN EVALUATION 11/15/20227 Pain Level: 6 Pain Location: Back-Lower Description: Aching;Cramping;Radiating;Sharp;Sore;Spasm;Stiffness;Throbbing Duration Amount of Time: 24 Duration Units: Months Frequency: Continuous Intervention/Comfort measure: Medication;Reposition;Relaxation;Distractions;Positioning Pain Radiation: From the neck to the back, shoulder, knee, and legs. Aggravating Factors: Standing, walking, and sitting for short times Alleviating Factors: a hot shower Pain Ratio: Pain in the legs is greater in the back than the front; the back pain is greater than neck, legs, and knees DERMATOMAL DISTRIBUTION: Not applicable AMBULATORY STATUS: with pain; uses shopping cart to relieve pain at the store ANTIPLATELET OR ANTICOAGULATION STATUS: No PREVIOUS CONSERVATIVE TREATMENTS: OTC NSAIDS for 3 Months or Greater (Ibuprofen) Muscle Relaxants PREVIOUS SPINAL SURGERY: None ACTIVE PROBLEM LIST Fibromyalgia Ddd (Degenerative Disc Disease), Lumbar Cervicalgia Lumbar Radiculopathy Nasal Septal Deviation Migraines Depression Lumbar Stenosis Lumbar Facet Arthropathy Cancer of Breast, Intraductal Er+ (Estrogen Receptor Positive Status) Vitamin D Deficiency Breast Cancer, Right Breast (Hcc) Breast Cancer, Right (Hcc) Neck Pain 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) PAST MEDICAL HISTORY Diagnosis Date Asthma Breast cancer, right breast (HCC) 07/02/2015 Depression Fibromyalgia High cholesterol Hypertension PAST SURGICAL HISTORY Procedure Laterality Date BX/EXC LYMPH NODE OPEN DEEP AXILLARY NODE Right 05/01/2015 SECTION HX 1976, 1985, 1990 INJ RADIOACTIVE TRACER FOR ID OF SENTINEL NODE Right 05/01/2015 MASTECTOMY, PARTIAL Right 05/01/2015 PAST SURGICAL HISTORY OF 04/16/2015 Right Lumpectomy w/lump node biopsy PERQ BREAST LOC DEVICE PLACEMT 1ST [facility] US IMAG Right 05/01/2015 REMOVE TONSILS/ADENOIDS,<12 Y/O FAMILY HISTORY Problem Relation Age of Onset None Other Patient is adopted, does not know hx Social History Tobacco Use Smoking status: Former Packs/day: 0.20 Years: 10.00 Pack years: 2.00 Types: Cigarettes Quit date: 06/23/1985 Years since quittin.4 Smokeless tobacco: Never Substance Use Topics Alcohol use: No Drug use: No ALLERGIES Allergen Reactions Metformin GI Upset Penicillin G Hives Sulfa (Sulfonamide * Hives MEDICATIONS: meloxicam (MOBIC) 15 mg tablet Take 1 tablet by mouth once daily. methocarbamol (ROBAXIN-750) 750 mg tablet Take 1 tablet by mouth twice daily as needed. empagliflozin (JARDIANCE ORAL) Take by mouth. sertraline (ZOLOFT) 50 mg tablet Take 50 mg by mouth once daily. valsartan (DIOVAN) 80 mg tablet Take 80 mg by mouth once daily. Alpha Lipoic Acid 300 mg cap Take 300 mg by mouth twice daily. vitamin b complex tab Take 1 tablet by mouth once daily. Berb Tucker/herbal complex no.18 (BERBERINE-HERBAL COMB NO.18 ORAL) Take 500 mg by mouth twice daily. Biotin 10,000 mcg cap Take 1 capsule by mouth twice daily. calcium polycarbophil (FIBERCON) 625 mg tablet Take 625 mg by mouth twice daily. MALIC ACID ORAL Take 600 mg by mouth twice daily. dicyclomine (BENTYL) 20 mg tablet Take 20 mg by mouth every 6 hours. pramipexole (MIRAPEX) 0.125 mg tablet Take 0.125 mg by mouth three times daily. Flaxseed Oil 1,000 mg cap Take by mouth. MAGNESIUM MALATE, BULK, MISC albuterol HFA (PROVENTIL HFA, VENTOLIN HFA) 90 mcg/actuation inhaler Inhale 2 Puffs as instructed every 4 hours as needed. VITAMIN D 50,000 unit capsule TAKE ONE CAPSULE BY MOUTH ONCE A WEEK montelukast (SINGULAIR) 10 mg tablet Take 1 tablet by mouth daily at bedtime. LACTOSE-REDUCED FOOD/FIBER (MZAXMT-RQEP-BXXO ORAL) Take 1 tablet by mouth twice daily. VIT C/E/B6/FA/B12/ARGIN/PEP XT (CARDIOTEK, BIOPERINE, ORAL) Take 1 tablet by mouth twice daily. COQ10, UBIQUINOL, ORAL Take 1 tablet by mouth once daily. Garlic cap Take 1 tablet by mouth daily at bedtime. L-LYSINE ORAL Take 1 tablet by mouth once daily. NIACIN, NIACINAMIDE, ORAL Take 1 tablet by mouth daily at bedtime. TURMERIC, BULK, MISC 3 tablets twice daily. Vitamin A 8,000 unit capsule Take 8,000 Units by mouth twice daily. cetirizine (ZYRTEC) 10 mg tablet Take 10 mg by mouth once daily. omeprazole (PRILOSEC) 40 mg capsule Take 40 mg by mouth once daily. losartan (COZAAR) 25 mg tablet Take 25 mg by mouth once daily. (Patient not taking: Reported on 11/16/2022) REVIEW OF SYSTEMS: PAIN ASSESSMENT: See HPI. GENERAL: Denies fever, chills malaise and weight loss. HEENT: No recent change in vision or hearing. CARDIOVASCULAR: Denies chest pain, history of A-fib, valvular disease, or pacemaker/ICD. RESPIRATORY: Denies SOB, sputum production, and hemoptysis. GI: Denies GI ulcers, inflammatory disease, or liver disease. : Denies change in frequency or urgency, kidney disease, and burning with urination. MUSCULOSKELETAL: Negative for joint pain or swelling, back pain or muscle pain. SKIN: Denies rash or itching. PSYCHOLOGICAL: Denies uncontrolled depression or anxiety. NEURO: Denies CVA, seizures, headaches. ENDOCRINE: Denies diabetes, thyroid disease. HEMATOLOGY/LYMPHOLOGY: Denies cancer, bleeding or clotting disorders, anemia,and DVT's. ALLERGIC/IMMUNOLOGICAL: Denies risks for infection, or recent MRSA infections. Patient Entered Questionnaires Spine Questions 11/15/2022 Pain Location: Lower back Pain Duration: More than 5 years Pain over last 6 months: Every day or nearly every day in the past 6 months Symptoms from neck/cervical spine: Yes Employment Status: Retired Involved in law suit/legal claim: No Spine Red Flags 02/16/2022 06/05/2022 09/17/2022 Any type of cancer: Yes Yes Yes Unexplained fever: No No No Bowel or bladder disfunction: Yes Yes No Unintentional weight loss: No No No Osteoporosis: No No No Neck Questionnaires 11/15/2022 Benzel Modified JOSHUA Score 13 (A lower score indicates increased pain and issues.) PROMIS Score Percentiles Physical Health 06/05/2022 09/17/2022 11/15/2022 Physical Function Percentile 5 7 4 Sleep Percentile 5 2 8 Fatigue Percentile - - 8 Pain Interference Percentile 4 10 4 PROMIS SOCIAL ROLE SCORE 11/15/2022 Social Role Satisfaction Percentile 14 PROMIS Global Health Scale 02/16/2022 06/05/2022 09/17/2022 Physical Health Percentile 2 7 2 Mental Health Percentile 9 9 13 Percentiles provide an indication of how the patient's score ranks in relation to the general population. Higher percentile rankings indicate better function/quality of life. 50th percentile is the average of the general population and indicates half of respondents had a worse score. Depression Screening: PHQ-9 11/15/2022 Score 8 PHQ-9 Self-harm Question 11/15/2022 Thoughts that you would be better off , or of hurting yourself in some way 0 PHQ-9 Self-Harm (Item 9) response options: 0 Not at all 1 Several days 2 More than half the days 3 Nearly every day PHQ-9 Levels: 0-4 No to mild depression 5-9 Mild depression 10-14 Moderate depression 15-19 Moderately severe depression 20-27 Severe depression OBJECTIVE: PHYSICAL EXAM BP 133/73 (BP Site: Left Arm, BP Position: Sitting, BP Cuff Size: Large Adult) Pulse 72 Ht 162.6 cm (5' 4 ) Wt 93.6 kg (206 lb 6.4 oz) SpO2 96% BMI 35.43 kg/m Oriented x3 PERRL FS Motor: UE D 5/5, B 5/5, T 5/5, G 5/5, HI 5/5 LE HF 5/5, KE 5/5, DF 5/5, PF 5/5, EHL 5/5 Tenderness over the knees Hip exam is overall normal Gait is normal NEURO TESTS: None DATA REVIEW MRI lumbar spine shows multilevel degenerative stenosis worst at L2-3, L3-4, L4- 5, L5-S1 causing mild to moderate stenosis ASSESSMENT/PLAN (M47.816) Lumbar spondylosis (M47.819) Facet arthropathy (M54.16) Lumbar radiculopathy Patient with symptoms of degenerative spine and possible neurogenic claudication 1. Recommended patient to do trial of gabapentin for 3 months. She will follow- up with me after. Ifsymptoms persist we can reevaluate surgical intervention though unclear pain generator it is localized to single-level or multilevel. 2. Follow up: 3 months SIGNATURE: Richmond Cobian MD PATIENT NAME: Davin Arriola DATE: November 16, 2022 TIME: 2:53 PM PAGER: Cherise De Los Santos, attest that this document has been prepared under the direction and in the presence of Richmond Cobian MD on November 04, 2022 at 3:15 PM. documented in this [facility] NoteHNO ID: [id number] Author: Den Fairbanks APRN.GEOLOGY PROFESSOR Service: ? Author Type: Nurse Practitioner Type: Progress Notes Filed: 09/25/2022 9:54 AM Note Text: SUBJECTIVE: Davin Ar[facility] for a follow up appointment post RFA. Since the last visit, Davin Arriola states the pain has been worse Current pain intensity is 4 on a scale of 0-10. Pain located in Back area and radiates both legs. Pain described as aching The patient the pain sometimes is shooting . Symptoms interfere with physical activity. Weakness,numbness Pain is exacerbated by walking. Pain is mitigated by medications, hot bath The medications are partially effective. The patient states the last dose of . Mobic was taken last night and Robaxin was taken this morning. REVIEW OF SYSTEMS: Constitutional: (-) Weight Gain (-) Weight Loss (-) Fatigue Cardiovascular: (-) hx heart surgery (-) Pacemaker Respiratory: (-) Shortness of Breath (-) Cough (-) Snoring Gastrointestinal: (-) Incontinence (-) Diarrhea (-) Constipation (-) Nausea/Vomiting Endocrine: (-) Thyroid Disorder (-) Diabetes Hematologic: (-) Prolonged Bleeding (-) Easy Bruising Genitourinary: (+) Incontinence (+) Frequency (+) Urinary Urgency Skin: (-) Open sores/wound Neurologic: (+) Headache (-) Double Vision Psychiatric: (+) Depression (+) Anxiety (-) Personal History of Alcohol or Substance Abuse (-) Family History of Alcohol or Substance Abuse CHIEF COMPLAINT:Patient presents with: Injection Followup OBJECTIVE: There were no vitals taken for this visit. PHYSICAL EXAMINATION: General appearance: Well appearing, in no acute distress, alert and oriented x3 Skin: Skin color, texture, turgor normal, no rashes or lesions Neck: No pain to palpation over the cervical paraspinous muscles. No pain with neck flexion, extension, or lateral flexion Cardiovascular: Regular, rate and rhythm Lungs: Normal respiratory rate and rhythm, Lungs clear to auscultation Back: Intact range of motion with pain reproduction. Facet:positive bilateral lumbar facet loading SI JOINT: neg PSIS tenderness Spine: Reports Tenderness on palpation: Lumbar- axial and paraspinals Neuro: No loss of sensation is noted. Motor skills intact Station and Gait: mild antalgic gait Trigger points: lumbosacral spine muscles. ASSESSMENT: Assessment : Patient presents for an injection follow-up Patient had right and then left lumbar RFA's in August 2022 and reports no relief Patient reports chronic low back pain that radiates down her bilateral lower extremities Patient reports that she has tried CBD and many different creams She reports she is not sleeping well due to the pain Patient is taking Mobic and Robaxin to help manage her chronic pain Discussed the importance of daily exercising and stretching Discussed considering a spine surgery consult Encounter Diagnosis ICD-10-CM 1. Lumbar spondylosis M47.816 CONSULT TO SPINE SURGERY 2. Facet arthropathy M47.819 CONSULT TO SPINE SURGERY 3. Lumbar radiculopathy M54.16 CONSULT TO SPINE SURGERY PDMP website checked and validated. All prescriptions have been APPROPRIATELY filled. No suspicious activity was identified. 09/24/2022 by Den Fairbanks APRN.MINOR Narcotic Agreement reviewed and signed?: N/A on September 24, 2022 The pain panel was N/A Discussion: A discussion was entertained regarding multicomponent back pain source. Discussed conservative options and focus on improvement of function. Discussed the rationale behind interventional approach and how it can facilitate improvement of pain but also diagnostic information that procedures provide. alf use of any opioid pain medication is discouraged in chronic benign pain. PLAN: Injection history was reviewed. Medication use and compliance were reviewed. 1. Continue medication management through the [facility] Management [facility] 2. Continue with Mobic and Robaxin 3. Interventional procedure options discussed. None at this time 4. Consult placed for spine surgery evaluation 5. Encouraged regular home exercise program. 6) F/U in as needed I spent a total of 25 minutes on the date of the service which included preparing to see the patient, [id number] patient care, completing clinical documentation, performing a medically appropriate examination, and ordering medications, tests, or procedures. The above plan and management options were discussed at length with patient. Patient is in agreement with the above and verbalized understanding. Den Fairbanks APRN, MINOR September 24[facility]12[facility] History of Present illness Narrative* Den Fairbanks APRN.MINOR - 09/24/2022 2:46 PM EST SUBJECTIVE: Davin Arriola presents to [facility] for a follow up appointment post RFA. Since the last visit, Davin Arriola states the pain has been worse Current pain intensity is 4 on a scale of 0-10. Pain located in Back area and radiates both legs. Pain described as aching The patient the pain sometimes is shooting . Symptoms interfere with physical activity. Weakness,numbness Pain is exacerbated by walking. Pain is mitigated by medications, hot bath The medications are partially effective. The patient states the last dose of . Mobic was taken last night and Robaxin was taken this morning. REVIEW OF SYSTEMS: Constitutional: (-) Weight Gain (-) Weight Loss (-) Fatigue Cardiovascular: (-) hx heart surgery (-) Pacemaker Respiratory: (-) Shortness of Breath (-) Cough (-) Snoring Gastrointestinal: (-) Incontinence (-) Diarrhea (-) Constipation (-) Nausea/Vomiting Endocrine: (-) Thyroid Disorder (-) Diabetes Hematologic: (-) Prolonged Bleeding (-) Easy Bruising Genitourinary: (+) Incontinence (+) Frequency (+) Urinary Urgency Skin: (-) Open sores/wound Neurologic: (+) Headache (-) Double Vision Psychiatric: (+) Depression (+) Anxiety (-) Personal History of Alcohol or Substance Abuse (-) Family History of Alcohol or Substance Abuse CHIEF COMPLAINT:Patient presents with: Injection Followup OBJECTIVE: There were no vitals taken for this visit. PHYSICAL EXAMINATION: General appearance: Well appearing, in no acute distress, alert and oriented x3 Skin: Skin color, texture, turgor normal, no rashes or lesions Neck: No pain to palpation over the cervical paraspinous muscles. No pain with neck flexion, extension, or lateral flexion Cardiovascular: Regular, rate and rhythm Lungs: Normal respiratory rate and rhythm, Lungs clear to auscultation Back: Intact range of motion with pain reproduction. Facet:positive bilateral lumbar facet loading SI JOINT: neg PSIS tenderness Spine: Reports Tenderness on palpation: Lumbar- axial and paraspinals Neuro: No loss of sensation is noted. Motor skills intact Station and Gait: mild antalgic gait Trigger points: lumbosacral spine muscles. ASSESSMENT: Assessment : Patient presents for an injection follow-up Patient had right and then left lumbar RFA's in August 2022 and reports no relief Patient reports chronic low back pain that radiates down her bilateral lower extremities Patient reports that she has tried CBD and many different creams She reports she is not sleeping well due to the pain Patient is taking Mobic and Robaxin to help manage her chronic pain Discussed the importance of daily exercising and stretching Discussed considering a spine surgery consult Encounter Diagnosis ICD-10-CM 1. Lumbar spondylosis M47.816 CONSULT TO SPINE SURGERY 2. Facet arthropathy M47.819 CONSULT TO SPINE SURGERY 3. Lumbar radiculopathy M54.16 CONSULT TO SPINE SURGERY PDMP website checked and validated. All prescriptions have been APPROPRIATELY filled. No suspiciousactivity was identified. 09/24/2022 by Den Fairbanks APRN.GEOLOGY PROFESSOR Narcotic Agreement reviewed and signed?: N/A on September 24, 2022 The pain panel was N/A Discussion: A discussion was entertained regarding multicomponent back pain source. Discussed conservative options and focus on improvement of function. Discussed the rationale behind interventional approach andhow it can facilitate improvement of pain but also diagnostic information that procedures provide. L brad term use of any opioid pain medication is discouraged in chronic benign pain. PLAN: Injection history was reviewed. Medication use and compliance were reviewed. 1. Continue medication management through the Pain Management [facility] 2. Continue with Mobic and Robaxin 3. Interventional procedure options discussed. None at this time 4. Consult placed for spine surgery evaluation 5. Encouraged regular home exercise program. 6) F/U in as needed I spent a total of 25 minutes on the date of the service which included preparing to see the patient, [id number] patient care, completing clinical documentation, performing a medically appropriate examination, and ordering medications, tests, or procedures. The above plan and management options were discussed at length with patient. Patient is in agreement with the above and verbalized understanding. Den Fairbanks APRN, MINOR September 24, 2022 documented in this encounter[facility]22 Surgical operation note* Operative Report - Juan Jose Hurtado MD - 09/01/2022 11:19 AM EST PATIENT NAME: Davin Arriola SERVICE DATE: 09/01/2022 PREOPERATIVE DIAGNOSIS(ES) Lumbar spondylosis without myelopathy Degeneration of lumbar intervertebral disc Lumbar facet arthropathy POSTOPERATIVE DIAGNOSIS(ES): same PROCEDURE: Left L4-5 and L5-S1 Lumbar Facet Medial Branch Nerve Radiofrequency Ablation under fluoroscopy. ANESTHESIA: Conscious sedation with Versed 3mg, Fentanyl 50mcg. IV INDICATIONS: The patient had positive diagnostic facet medial branch nerve blocks. The pain overallhas improved by greater than 60% and the patient reports an increase in physical activity. The plan is Radiofrequency ablation of medial branch nerves at L4-5 and L5-S1 levels on the left side. The risks and benefits of the procedure were discussed. Specifically, the risks of bleeding, infection, inadvertent dural puncture, spinal heaches, vasovagal reaction, epidural hematoma, partial or permanent nerve injury were covered. The potential side effects of medications used in procedures including increase in lumbar pain, headaches, facial redness or warmth (flushing), anxiety or mood swings, sleeplessness, fever, high blood sugar, brief reduction in immunity were discussed. The patient expressed understanding of potential risks and wishes to proceed with the procedure. DESCRIPTION OF PROCEDURE: The patient was brought to the OR fluoroscopy suite. The patient was placed in the prone position with pressure points protected. Continuous hemodynamic monitoring was initiated including blood pressure, EKG, and pulse oximetry. Supplemental oxygen per nasal canula was started. The intravenous medication was administered incrementally to provide conscious sedation and toallow the patient to remain comfortable and conversant throughout the procedure. The area of the posterior lumbar area was prepped povidone- iodine three times and draped into a sterile field. Fluoroscopy was used to identify the location of the left L4-5 and L5-S1 medial branch nerves respectively.Skin anesthesia was achieved using 3 cc of Lidocaine 0.5% over the injection sites. A 20 gauge, 100mm (10mm active tip) curved RF needle was slowly inserted at each level using AP, lateral and oblique fluoroscopic imaging. Negative aspiration for blood or CSF was confirmed. Sensory stimulation at 50Hz below 0.5V was achieved at every level. Motor stimulation at 2Hz up to 1.5V did not cause any radicular symptoms at any level. Each level was anesthetized with 1.5 cc of lidocaine 1%. Radiofrequency lesioning was performed for 90 seconds at 80 degrees at each level. At each level, 1ml of 0.25% Marcaine with 5 mg of Kenalog was injected. The needles were removed and bleeding was nil. A sterile d ressing was applied. Davin Arriola was taken to the [facility] for further observation. EBL: nil Start time: 11:26 AM End time: 11:39 AM I was present the entire time and personally performed the procedure. SIGNATURE: Juan Jose Hurtado MD DATE: September 01, 2022 TIME: 11:42 AM documented in this encounterOhiohealth Grant [facility] Center11-22-2022 History and physical note * Juan Jose Hurtado MD - 09/01/2022 10:52 AM EST HISTORY AND PHYSICAL EXAMINATION PATIENT NAME: Davin Arriola DATE of SERVICE: 09/01/2022 Davin Arriola is here for the pain mangement procedure. The patients presents with persistent paincomplaints. Davin Arriola denies any interval changes or new pain complaints or focal neurologic deficits. PAST MEDICAL HISTORY Diagnosis Date Asthma Breast cancer, right breast (HCC) 07/02/2015 Depression Fibromyalgia High cholesterol Hypertension PAST SURGICAL HISTORY Procedure Laterality Date BX/EXC LYMPH NODE OPEN DEEP AXILLARY NODE Right 05/01/2015 SECTION HX 1976, 1985, 1990 INJ RADIOACTIVE TRACER FOR ID OF SENTINEL NODE Right 05/01/2015 MASTECTOMY, PARTIAL Right 05/01/2015 PAST SURGICAL HISTORY OF 04/16/2015 Right Lumpectomy w/lump node biopsy PERQ BREAST LOC DEVICE PLACEMT 1ST LESIO US IMAG Right 05/01/2015 REMOVE TONSILS/ADENOIDS,<14 Y/O Social History Tobacco Use Smoking status: Former Packs/day: 0.20 Years: 10.00 Pack years: 2.00 Types: Cigarettes Quit date: 06/23/1985 Years since quittin.2 Smokeless tobacco: Never Substance Use Topics Alcohol use: No Drug use: No FAMILY HISTORY Problem Relation Age of Onset None Other Patient is adopted, does not know hx ALLERGIES Allergen Reactions Penicillin G Hives Sulfa (Sulfonamide * Hives Current Facility-Administered Medications Medication Dose Route Frequency NaCl 0.9% iv infusion 30 mL/hr INTRAVENOUS CONTINUOUS Physical Exam: Performed in conjunction with observation. The patient is alert and oriented x3. The patient is in no acute distress. Neck: Supple. The range of motion is intact. Lungs: clear CVR: RRR. Extremities: no reported edema or erythema. Examination indicates no changes Impression: Lumbar spondylosis Plan: The informed consent has been obtained. The plan is to proceed with the procedure as planned. SIGNATURE: Juan Jose Hurtado MD DATE: September 01, 2022 TIME: 10:53 AM documented in this encounterOhiohealth Grant Medical Center10-27-2022 Miscellaneous Notes* Telephone Encounter - Sade Godoy Ma - 08/06/2022 3:03 PM EDT Attempted to contact patient to schedule injection. No answer. Left a detailed voice mail instructing her that I have rescheduled her for September 01. Instructed her that all the procedure instructed remain the same. Instructed her to give us a call back to the office if September 01 does not work for her. Dhf [employer] message forwarded to her with above. * Telephone Encounter - Sade Godoy Ma - 08/04/2022 2:24 PM EDT Attempted to contact patient regarding message below. Left voice message for patient to return callto office. * Telephone Encounter - Gabbi Doyle RN - 07/31/2022 11:50 AM EDT Patient left voicemail 07/30/2022 at 1635 Patient returning call to reschedule * Telephone Encounter - Sade Godoy Ma - 07/30/2022 10:54 AM EDT Attempted to contact patient to schedule right L4-5, L5-S1 RFA. Left message to return call back to office. * Telephone Encounter - Gabbi Doyle RN - 07/29/2022 2:22 PM EDT Patent scheduled for Right L4-5 and L5-S1 Lumbar Facet Radiofrequency Ablations tomorrow 07/30/2022 Prior authorization still pending Patient will need to reschedule Please note: Patient scheduled for LEFT side on 08/13/2022 documented in this encounterOhiohealth [facility] Center10-13-2022 Miscellaneous Notes* Telephone Encounter - Sade Godoy Ma - 07/23/2022 2:38 PM EDT Patient contacted via telephone to re-schedule ablation from 07/23/22 and 08/06/22. Patient scheduled for: July 30 - Right side August 13 - Left side Patient verbalized understanding with no additional questions or concerns at this time. * Telephone Encounter - Gabbi Doyle RN - 07/23/2022 2:09 PM EDT Patient left voicemail 07/23/2022 Patient states that she was scheduled today but never received a call Patient inquiring on what is the status of her procedure Right L4-5 and L5-S1 Lumbar Facet Medial Branch Nerve Radiofrequency Ablation and x2 weeks later the left side documented in this encounterOhiohealth Grant Medical Center09-27-2022 Miscellaneous Notes* Telephone Encounter - Den Fairbanks APRN.CNP - 07/07/2022 11:45 AM EDT The following approved medication requests have been transmitted electronically. Requested Prescriptions Signed Prescriptions Disp Refills meloxicam (MOBIC) 15 mg tablet 30 tablet 1 Sig: Take 1 tablet by mouth once daily. Authorizing Provider: DEN FAIRBANKS methocarbamol (ROBAXIN-750) 750 mg tablet 60 tablet 1 Sig: Take 1 tablet by mouth twice daily as needed. Authorizing Provider: DEN FAIRBANKS APRN.CNP * Telephone Encounter - Gabbi Doyle RN - 07/06/2022 2:20 PM EDT Provider: Dr. Juan Jose Hurtado and Den Fairbanks CNP patient requesting refill. Please E-Scribe Last OV: 06/10/2022 with Den Fairbanks CNP Future OV: N/A Last prescribed: 06/09/2022 Requested Prescriptions Pending Prescriptions Disp Refills meloxicam (MOBIC) 15 mg tablet 30 tablet 0 Sig: Take 1 tablet by mouth once daily. methocarbamol (ROBAXIN-750) 750 mg tablet 60 tablet 0 Sig: Take 1 tablet by mouth twice daily as needed. Request sent to provider to review Gabbi Doyle RN documented in this encounterOhiohealth Grant Medical Center08-31-2022 History of Present illness Narrative* Den Fairbanks APRN.GEOLOGY PROFESSOR - 06/10/2022 11:50 AM EDT SUBJECTIVE: [facility] for a follow up appointment for possible injection Since the last visit, Davin Arriola states the pain has been worse Current pain intensity is 4 on a scale of 0-10. Pain located in Back area and radiates both legs. Pain described as aching The patient the pain sometimes is shooting . Symptoms interfere with physical activity. Weakness,numbness Pain is exacerbated by walking. Pain is mitigated by medications, hot bath The patient is overall improved with the injections. The medications are effective and partially effective. The patient states the last dose of . OTC Tylenol was taken at 6 am today and MObic last night . REVIEW OF SYSTEMS: Constitutional: (-) Weight Gain (-) Weight Loss (-) Fatigue Cardiovascular: (-) hx heart surgery (-) Pacemaker Respiratory: (+) Shortness of Breath (+) Cough (-) Snoring Gastrointestinal: (-) Incontinence (-) Diarrhea (-) Constipation (-) Nausea/Vomiting Endocrine: (-) Thyroid Disorder (-) Diabetes Hematologic: (-) Prolonged Bleeding (-) Easy Bruising Genitourinary: (+) Incontinence (+) Frequency (+) Urinary Urgency Skin: (-) Open sores/wound Neurologic: (+) Headache (-) Double Vision Psychiatric: (+) Depression (+) Anxiety (-) Personal History of Alcohol or Substance Abuse (-) Family History of Alcohol or Substance Abuse CHIEF COMPLAINT:Patient presents with: Establish Care: Talk about possible injection Back Pain OBJECTIVE: Pulse 72 Wt 218 lb (98.9kg) SpO2 98% PHYSICAL EXAMINATION: General appearance: Well appearing, in no acute distress, alert and oriented x3 Skin: Skin color, texture, turgor normal, no rashes or lesions Neck: No pain to palpation over the cervical paraspinous muscles. No pain with neck flexion, extension, or lateral flexion Cardiovascular: Regular, rate and rhythm Lungs: Normal respiratory rate and rhythm, Lungs clear to auscultation Back: Intact range of motion without pain reproduction. Facet:positive bilateral lumbar facet loading Spine: Reports Tenderness on palpation: Lumbar- bilateral paraspinals Extremities: No deformities, edema, or skin discoloration. Good capillary refill. Musculoskeletal: chronic knee pain Neuro: No loss of sensation is noted. Motor skills intact Station and Gait: antalgic gait Motor: Exhibits full strength in all four extremities. Trigger points: lumbosacral spine muscles. ASSESSMENT: Assessment : Patient presents for a follow-up visit She was last seen over a year ago. She has a history of chronic lower back pain with the right sidebeing worse than the left side that radiates down the bilateral lower extremities Patient had left and then right L4, 5, S1 RFA's in February 2020. She would like to repeat Patient also has a history of bilateral knee pain. She reports she received injections a few monthsago Patient takes Mobic and Tylenol to help manage her chronic pain [facility] Encounter Diagnosis ICD-10-CM 1. Lumbar spondylosis M47.816 DSTR NROLYTC AGNT PARVERTEB FCT SNGL LMBR/SACRAL DSTR NROLYTC AGNT PARVERTEB FCT ADDL LMBR/SACRAL PARKING FOR HANDICAPPED 2. Facet arthropathy M47.819 DSTR NROLYTC AGNT PARVERTEB FCT SNGL LMBR/SACRAL DSTR NROLYTC AGNT PARVERTEB FCT ADDL LMBR/SACRAL PARKING FOR HANDICAPPED 3. Lumbar radiculopathy M54.16 [facility] and [facility]. All prescriptions have been APPROPRIATELY filled. No suspiciousactivity was identified. 06/10/2022 by Den Fairbanks APRN.GEOLOGY PROFESSOR Narcotic Agreement reviewed and signed?: N/A on June 10 The pain panel was N/A Discussion: A discussion was entertained regarding multicomponent back pain source. Discussed conservative options and focus on improvement of function. Discussed the rationale behind interventional approach andhow it can facilitate improvement of pain but also diagnostic information that procedures provide. L brad term use of any opioid pain medication is discouraged in chronic benign pain. PLAN: Injection history was reviewed. Medication use and compliance were reviewed. 1. Continue medication management through the patient's current prescribing physician 2. Requested Prescriptions No prescriptions requested or ordered in this encounter 3. Interventional procedure options discussed. Ordered and scheduled repeat lumbar RFA's starting with the right side and then 2 weeks later the left side 4. Encouraged regular home exercise program. 5. Handicap placard rx given 6) F/U in 2 months I spent a total of 20 minutes on the date of the service which included preparing to see the patient, [id number] patient care, completing clinical documentation, performing a medically appropriate examination, and ordering medications, tests, or procedures. The above plan and management options were discussed at length with patient. Patient is in agreement with the above and verbalized understanding. Den Fairbanks APRN, CNP June 10, 2022 documented in this encounterOhiohealth Grant Medical Center08-30-2022 Miscellaneous Notes* Telephone Encounter - Den Fairbanks APRN.CNP - 06/09/2022 12:39 PM EDT The following approved medication requests have been transmitted electronically. Requested Prescriptions Signed Prescriptions Disp Refills meloxicam (MOBIC) 15 mg tablet 30 tablet 0 Sig: Take 1 tablet by mouth once daily. Authorizing Provider: DEN FAIRBANKS methocarbamol (ROBAXIN-750) 750 mg tablet 60 tablet 0 Sig: Take 1 tablet by mouth twice daily as needed. Authorizing Provider: DEN FAIRBANKS APRN.CNP * Telephone Encounter - Gabbi Doyle RN - 06/08/2022 3:58 PM EDT Provider: Dr. Juan Jose Hurtado and Den Fairbanks CNP patient requesting refill. Please E-Scribe Last OV: 02/26/2022 with Ran Fairbanks CNP Future OV: 06/10/2022 with Ran Fairbanks CNP Last prescribed: 05/06/2022 Requested Prescriptions Pending Prescriptions Disp Refills meloxicam (MOBIC) 15 mg tablet 30 tablet 0 Sig: Take 1 tablet by mouth once daily. methocarbamol (ROBAXIN-750) 750 mg tablet 60 tablet 0 Sig: Take 1 tablet by mouth twice daily as needed. Request sent to provider to review Gabbi Doyle RN * Telephone Encounter - Erika Lemos - 06/05/2022 3:28 PM EDT Patient phones requesting refills as follows: Requested Prescriptions Pending Prescriptions Disp Refills meloxicam (MOBIC) 15 mg tablet 30 tablet 0 Sig: Take 1 tablet by mouth once daily. methocarbamol (ROBAXIN-750) 750 mg tablet 60 tablet 0 Sig: Take 1 tablet by mouth twice daily as needed. Please review and advise. Erika Lemos documented in this encounterOhiohealth Grant Medical Center07-27-2022 Miscellaneous Notes* Telephone Encounter - Den Fairbanks APRN.CNP - 05/06/2022 10:17 PM EDT The following approved medication requests have been transmitted electronically. Signed Prescriptions Disp Refills methocarbamol (ROBAXIN-750) 750 mg tablet 60 tablet 0 Sig: Take 1 tablet by mouth twice daily as needed. JOMAR: No Authorizing Provider: DEN FAIRBANKS meloxicam (MOBIC) 15 mg tablet 30 tablet 0 Sig: Take 1 tablet by mouth once daily. JOMAR: No Authorizing Provider: DEN FAIRBANKS APRN.CNP * Telephone Encounter - Gabbi Doyle RN - 05/06/2022 1:21 PM EDT Provider: Dr. Juan Jose Hurtado and Den Fairbanks CNP patient requesting refill. Please E-Scribe Last OV: 02/26/2022 with Ran Fairbanks CNP Future OV: N/A Last prescribed: 04/10/2022 Pending Prescriptions Disp Refills METHOCARBAMOL 750 MG TABLET 60 tablet 0 Sig: Take 1 tablet by mouth twice daily as needed. JOMAR: No MELOXICAM 15 MG TABLET 30 tablet 0 Sig: Take 1 tablet by mouth once daily. JOMAR: No Request sent to provider to review Gabbi Doyle RN documented in this encounterOhiohealth Grant Medical Center07-01-2022 Miscellaneous Notes* Telephone Encounter - Den Fairbanks APRN.CNP - 04/10/2022 8:51 AM EDT The following approved medication requests have been transmitted electronically. Signed Prescriptions Disp Refills meloxicam (MOBIC) 15 mg tablet 30 tablet 0 Sig: Take 1 tablet by mouth once daily. JOMAR: No Authorizing Provider: DEN FAIRBANKS APRN.CNP * Telephone Encounter - Gabbi Doyle RN - 04/09/2022 3:28 PM EDT Patient left voicemail 04/09/2022 Patient states orthopedic group was prescribing her meloxicam Patient asking if pain management could prescribe this medication to her documented in this encounterOhiohealth Grant Medical Center07-01-2022 Miscellaneous Notes* Telephone Encounter - Den Fairbanks APRN.CNP - 04/10/2022 8:00 AM EDT The following approved medication requests have been transmitted electronically. Signed Prescriptions Disp Refills methocarbamol (ROBAXIN-750) 750 mg tablet 60 tablet 0 Sig: Take 1 tablet by mouth twice daily as needed. JOMAR: No Authorizing Provider: DEN FAIRBANKS APRN.CNP * Telephone Encounter - Gabbi Doyle RN - 04/09/2022 3:27 PM EDT Provider: Dr. Juan Jose Hurtado and Den Fairbanks CNP patient requesting refill. Please E-Scribe Last OV: 02/26/2022 with Ran Fairbanks CNP Future OV: N/A Last prescribed: 02/26/2022 Pending Prescriptions Disp Refills METHOCARBAMOL 750 MG TABLET 60 tablet 0 Sig: Take 1 tablet by mouth twice daily as needed. JOMAR: No Request sent to provider to review Gabbi Doyle RN documented in this encounterOhiohealth Grant Medical Center06-02-2022 Miscellaneous Notes* Telephone Encounter - Gabbi Doyle RN - 03/12/2022 9:01 AM EDT Additional Sitemasherhart message sent at this time * Telephone Encounter - Sade Godoy Ma - 03/06/2022 2:[address] Hurtado review patient's Lumbar MRI. Recommends a bilateral L4-5 vs L5-S1 transforaminal epidural steroid injection. Notified patient via [employer]. Will await patient response. * Telephone Encounter - Sade Godoy Ma - 03/05/2022 10:18 AM EDT Received outside images on a CD from [facility]. 02/09/2022 MRI Lumbar documented in this encounterOhiohealth Grant Medical Center05-19-2022 History of Present illness Narrative* Den Fairbanks APRN.MINOR - 02/26/2022 1:42 PM EDT SUBJECTIVE: Davin Arriola presents to [facility] Pain Management Department for a follow up appointment form injection. Since the last visit, Davin Arriola states the pain has been worsening. Current pain intensity is 7 on a scale of 0-10. Pain located in lower back pain and radiates down bilateral legs. Pain described as a constant ache. The patient Reports numbness and tingling. Symptoms interfere with physical activity, walking, sitting, cooking, household cleaning and lifting. Pain is exacerbated by standing and walking. Pain is mitigated by resting for a short time and repositiong. The patient is overall not improved with the RFA. The patient is not currently receiving medications through the [facility]. REVIEW OF SYSTEMS: Constitutional: (-) Weight Gain (-) Weight Loss (+) Fatigue Cardiovascular: (-) hx heart surgery (+) Pacemaker Respiratory: (-) Shortness of Breath (-) Cough (+) Snoring Gastrointestinal: (-) Incontinence (-) Diarrhea (-) Constipation (-) Nausea/Vomiting Endocrine: (-) Thyroid Disorder (-) Diabetes Hematologic: (-) Prolonged Bleeding (-) Easy Bruising Genitourinary: (+) Incontinence (-) Frequency (+) Urinary Urgency Skin: (-) Open sores/wound Neurologic: (-) Headache (-) Double Vision Psychiatric: (+) Depression (+) Anxiety (-) Personal History of Alcohol or Substance Abuse (-) Family History of Alcohol or Substance Abuse CHIEF COMPLAINT:Patient presents with: Pain OBJECTIVE: Wt 213 lb (96.6kg) PHYSICAL EXAMINATION: General appearance: Well appearing, in no acute distress, alert and oriented x3 Skin: Skin color, texture, turgor normal, no rashes or lesions Neck: No pain to palpation over the cervical paraspinous muscles. No pain with neck flexion, extension, or lateral flexion Cardiovascular: Regular, rate and rhythm Lungs: Normal respiratory rate and rhythm, Lungs clear to auscultation Back: Intact range of motion with pain reproduction. Facet: positive lumbar facet loading Spine: Reports Tenderness on palpation: Lumbar-paraspinals bilateral Extremities: No deformities, edema, or skin discoloration. Good capillary refill. Musculoskeletal: Bilateral knee pain Neuro: No loss of sensation is noted. Motor skills intact Station and Gait: antalgic gait Motor: Exhibits full strength in all four extremities. Trigger points: lumbosacral spine muscles. ASSESSMENT: Assessment : Patient presents for follow-up visit. She was last seen January 2021 Patient had left and then right L4, 5, S1 RFA's in February 2021 with 50% improvement. Patient reports more relief on the left side but the pain never went away on the right side Patient reports lower back pain that radiates down the bilateral posterior/anterior/lateral lower extremities. Patient reports that the pain will travel down to her feet Patient reports tingling in the right foot. She reports that her legs feel like they are going to sleep, especially with sitting too long She reports by the end of the day her pain is worse Patient has seen orthopedics for bilateral knee pain and reports that her knees are [id number]. She recently received her first set of cortisone shots Patient had a lumbar MRI at [facility] in [place] a few weeks ago. She will obtain the disc with the images and bring to the office on Wednesday Discussed starting a muscle relaxer. Patient reports that she has done well on Robaxin Encounter Diagnosis ICD-10-CM 1. Lumbar spondylosis M47.816 2. DDD (degenerative disc disease), lumbar M51.36 3. Lumbar radiculopathy M54.16 PDMP website checked and validated. All prescriptions have been APPROPRIATELY filled. No suspiciousactivity was identified. 02/26/2022 by Den Fairbanks APRN.MINOR Narcotic Agreement reviewed and signed?: N/A on February 26, 2022 The pain panel was N/A PLAN: Injection history was reviewed. Medication use and compliance were reviewed. 1. Continue medication management through the Pain Management Center 2. Signed Prescriptions Disp Refills methocarbamol (ROBAXIN-750) 750 mg tablet 60 tablet 0 Sig: Take 1 tablet by mouth twice daily as needed. 3. Interventional procedure options discussed. Patient will obtain disc from [facility] with recent lumbar MRI. Once received we will let Dr. Hurtado review for further recommendations. May consider transforaminal injection 4. Encouraged regular home exercise program. 5) F/U in TBD I spent a total of 25 minutes on the date of the service which included preparing to see the patient, [id number] patient care, completing clinical documentation, performing a medically appropriate examination and ordering medications, tests, or procedures. The above plan and management options were discussed at length with patient. Patient is in agreement with the above and verbalized understanding. Den Fairbanks APRN, CNP February 26, 2022 documented in this encounterOhiohealth Grant Medical CenterEvaluation note* Diagnosis Lumbar spondylosis- Primary Lumbosacral spondylosis without myelopathy DDD (degenerative disc disease), lumbar Degeneration of lumbar or lumbosacral intervertebral disc Lumbar radiculopathy Thoracic or lumbosacral neuritis or radiculitis, unspecified documented in this encounter [facility]* Diagnosis Lumbar spondylosis- Primary Lumbosacral spondylosis without myelopathy Facet arthropathy Spondylosis of unspecified site without mention of myelopathy Lumbar radiculopathy Thoracic or lumbosacral neuritis or radiculitis, unspecified documented in this encounter [facility]* Diagnosis Lumbar spondylosis- Primary Lumbosacral spondylosis without myelopathy Facet arthropathy Spondylosis of unspecified site without mention of myelopathy DDD (degenerative disc disease), lumbar Degeneration of lumbar or lumbosacral intervertebral disc Lumbar spondylosis Lumbosacral spondylosis without myelopathy Facet arthropathy Spondylosis of unspecified site without mention of myelopathy DDD (degenerative disc disease), lumbar Degeneration of lumbar or lumbosacral intervertebral disc documented in this encounter [facility]* Diagnosis Lumbar spondylosis- Primary Lumbosacral spondylosis without myelopathy Facet arthropathy Spondylosis of unspecified site without mention of myelopathy DDD (degenerative disc disease), lumbar Degeneration of lumbar or lumbosacral intervertebral disc Lumbar spondylosis Lumbosacral spondylosis without myelopathy Facet arthropathy Spondylosis of unspecified site without mention of myelopathy DDD (degenerative disc disease), lumbar Degeneration of lumbar or lumbosacral intervertebral disc documented in this encounter [facility]* Diagnosis Lumbar spondylosis- Primary Lumbosacral spondylosis without myelopathy Facet arthropathy Spondylosis of unspecified site without mention of myelopathy Lumbar radiculopathy Thoracic or lumbosacral neuritis or radiculitis, unspecified [facility]* Diagnosis Lumbar spondylosis Lumbosacral spondylosis without myelopathy Facet arthropathy Spondylosis of unspecified site without mention of myelopathy Lumbar radiculopathy Thoracic or lumbosacral neuritis or radiculitis, unspecified [facility]* Diagnosis Lumbar spondylosis- Primary Lumbosacral spondylosis without myelopathy Facet arthropathy Spondylosis of unspecified site without mention of myelopathy Lumbar radiculopathy Thoracic or lumbosacral neuritis or radiculitis, unspecified documented in this encounter [facility] note* Diagnosis Pre-operative examination- Primary Preoperative examination, unspecified Malignant neoplasm of upper-outer quadrant of right female breast, unspecified estrogen receptor status (HCC) Depression, unspecified depression type DDD (degenerative disc disease), lumbar Degeneration of lumbar or lumbosacral intervertebral disc Type 2 diabetes mellitus without complication, without long-term current use of insulin (HCC) Gastroesophageal reflux disease, unspecified whether esophagitis present Irritable bowel syndrome with diarrhea Irritable bowel syndrome Mild intermittent asthma without complication Unspecified asthma RLS (restless legs syndrome) Restless legs syndrome (RLS) Former smoker Personal history of tobacco use, presenting hazards to health Class 2 severe obesity due to excess calories with serious comorbidity and body mass index (BMI) of 35.0 to 35.9 in adult (HCC) RUQ pain Abdominal pain, right upper quadrant Calculus of gallbladder with acute on chronic cholecystitis without obstruction documented in this encounter [facility] Outpatient Procedure (Routine) - Closed Specialty Diagnoses / Procedures Referred By Contac t Referred To [facility] Diagnoses Pre-operative examination Procedures ECG COMPLETE ECG ROUTINE ECG W/LEAST 12 LDS W/I&R Lisandro Escobar APRN.CNP [address] [place] [address] [facility] [address] [place] [address] Referral ID Status Reason Start Date Expiration Date V isits Requested Visits Authorized [id number] Closed Auto-Generate d Referral 04/07/2023 04/06/2024 1 1 [facility] Advance Directives Documents on File Type Date 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 Advance Directive(s) 02/25/2021 10:00 AM Advance Directive(s) 02/19/2021 12:28 PM Advance Directive(s) 02/11/2021 8:46 AM Advance Directive(s) 01/21/2021 2:59 PM Advance Directive(s) 01/21/2021 3:06 PM Advance Directive(s) 02/18/2016 3:37 PM Summary Purpose Family History No Family History Records FoundNo Family History Records FoundNo Family History Records Found Medications Administered Section Inactive Administered Medications - up to 3 most recent administrations Medication Order MAR Action Action Date Dose Rate Site NaCl 0.9% iv infusion 30 mL/hr, INTRAVENOUS, CONTINUOUS, Starting on Wed09/01/22 at 1030, Until Wed09/01/22 at 1154, Preprocedure New Bag/Syringe/Bottle 09/01/2022 10:19 AM EST 30 mL/hr 30 mL/hr Reason for Referral Specialty Diagnoses / Procedures Referred By Contac t Referred To Contact Diagnoses Lumbar spondylosis Facet arthropathy Lumbar radiculopathy Procedures CONSULT TO SPINE SURGERY OFFICE/OUTPATIENT [facility] 60-74 MINUTES Juan Jose Hurtado MD [address] [facility] [place] [address] Referral ID Status Reason Start Date Expiration Date V isits Requested Visits Authorized [id number] Authorized 09/24/2022 12/23/2022 1 1 Additional Source Comments Source Comments (unrecognize d section and content) In the event this informatio n is protected by the Federal Confidentiality of Alcohol and Drug Abuse Patient Records regulations: The Federal rules restrict any use of the information to criminally investigate or prosecute any alcohol or drug abuse patient.[facility] Center[facility] the event this information is protected by the Federal Confidentiality of Alcohol and Drug Abuse Patient Records regulations: The Federal rules restrict any use of the information to criminally investigate or prosecute any alcohol or drug abuse patient.[facility] CenterIn the event this information is protected by the Federal Confidentiality of Alcohol and Drug Abuse Patient Records regulations: The Federal rules restrict any use of the information to criminally investigate or prosecute any alcohol or drug abuse patient.[facility] CenterIn the event this information is protected by the Federal Confidentiality of Alcohol and Drug Abuse Patient Records regulations: The Federal rules restrict any use of the information to criminally investigate or prosecute any alcohol or drug abuse patient.[facility] CenterIn the event this information is protected by the Federal Confidentiality of Alcohol and Drug Abuse Patient Records regulations: The Federal rules restrict any use of the information to criminally investigate or prosecute any alcohol or drug abuse patient.[facility] CenterIn the event this information is protected by the Federal Confidentiality of Alcohol and Drug Abuse Patient Records regulations: The Federal rules restrict any use of the information to criminally investigate or prosecute any alcohol or drug abuse patient.[facility] CenterIn the event this information is protected by the Federal Confidentiality of Alcohol and Drug Abuse Patient Records regulations: The Federal rules restrict any use of the information to criminally investigate or prosecute any alcohol or drug abuse patient.[facility] CenterIn the event this information is protected by the Federal Confidentiality of Alcohol and Drug Abuse Patient Records regulations: The Federal rules restrict any use of the information to criminally investigate or prosecute any alcohol or drug abuse patient.[facility] CenterIn the event this information is protected by the Federal Confidentiality of Alcohol and Drug Abuse Patient Records regulations: The Federal rules restrict any use of the information to criminally investigate or prosecute any alcohol or drug abuse patient.[facility] CenterIn the event this information is protected by the Federal Confidentiality of Alcohol and Drug Abuse Patient Records regulations: The Federal rules restrict any use of the information to criminally investigate or prosecute any alcohol or drug abuse patient.[facility] CenterIn the event this information is protected by the Federal Confidentiality of Alcohol and Drug Abuse Patient Records regulations: The Federal rules restrict any use of the information to criminally investigate or prosecute any alcohol or drug abuse patient.[facility] CenterIn the event this information is protected by the Federal Confidentiality of Alcohol and Drug Abuse Patient Records regulations: The Federal rules restrict any use of the information to criminally investigate or prosecute any alcohol or drug abuse patient.[facility] CenterIn the event this information is protected by the Federal Confidentiality of Alcohol and Drug Abuse Patient Records regulations: The Federal rules restrict any use of the information to criminally investigate or prosecute any alcohol or drug abuse patient.[facility] CenterIn the event this information is protected by the Federal Confidentiality of Alcohol and Drug Abuse Patient Records regulations: The Federal rules restrict any use of the information to criminally investigate or prosecute any alcohol or drug abuse patient.[facility] CenterIn the event this information is protected by the Federal Confidentiality of Alcohol and Drug Abuse Patient Records regulations: The Federal rules restrict any use of the information to criminally investigate or prosecute any alcohol or drug abuse patient.[facility] CenterIn the event this information is protected by the Federal Confidentiality of Alcohol and Drug Abuse Patient Records regulations: The Federal rules restrict any use of the information to criminally investigate or prosecute any alcohol or drug abuse patient.[facility] CenterIn the event this information is protected by the Federal Confidentiality of Alcohol and Drug Abuse Patient Records regulations: The Federal rules restrict any use of the information to criminally investigate or prosecute any alcohol or drug abuse patient.[facility] CenterIn the event this information is protected by the Federal Confidentiality of Alcohol and Drug Abuse Patient Records regulations: The Federal rules restrict any use of the information to criminally investigate or prosecute any alcohol or drug abuse patient.[facility] CenterIn the event this information is protected by the Federal Confidentiality of Alcohol and Drug Abuse Patient Records regulations: The Federal rules restrict any use of the information to criminally investigate or prosecute any alcohol or drug abuse patient.[facility] CenterIn the event this information is protected by the Federal Confidentiality of Alcohol and Drug Abuse Patient Records regulations: The Federal rules restrict any use of the information to criminally investigate or prosecute any alcohol or drug abuse patient.[facility] CenterIn the event this information is protected by the Federal Confidentiality of Alcohol and Drug Abuse Patient Records regulations: The Federal rules restrict any use of the information to criminally investigate or prosecute any alcohol or drug abuse patient.[facility] CenterIn the event this information is protected by the Federal Confidentiality of Alcohol and Drug Abuse Patient Records regulations: The Federal rules restrict any use of the information to criminally investigate or prosecute any alcohol or drug abuse patient.[facility] CenterIn the event this information is protected by the Federal Confidentiality of Alcohol and Drug Abuse Patient Records regulations: The Federal rules restrict any use of the information to criminally investigate or prosecute any alcohol or drug abuse patient.[facility] CenterIn the event this information is protected by the Federal Confidentiality of Alcohol and Drug Abuse Patient Records regulations: The Federal rules restrict any use of the information to criminally investigate or prosecute any alcohol or drug abuse patient.[facility] CenterIn the event this information is protected by the Federal Confidentiality of Alcohol and Drug Abuse Patient Records regulations: The Federal rules restrict any use of the information to criminally investigate or prosecute any alcohol or drug abuse patient.[facility] CenterIn the event this information is protected by the Federal Confidentiality of Alcohol and Drug Abuse Patient Records regulations: The Federal rules restrict any use of the information to criminally investigate or prosecute any alcohol or drug abuse patient.[facility] CenterIn the event this information is protected by the Federal Confidentiality of Alcohol and Drug Abuse Patient Records regulations: The Federal rules restrict any use of the information to criminally investigate or prosecute any alcohol or drug abuse patient.[facility] CenterIn the event this information is protected by the Federal Confidentiality of Alcohol and Drug Abuse Patient Records regulations: The Federal rules restrict any use of the information to criminally investigate or prosecute any alcohol or drug abuse patient.[facility] CenterIn the event this information is protected by the Federal Confidentiality of Alcohol and Drug Abuse Patient Records regulations: The Federal rules restrict any use of the information to criminally investigate or prosecute any alcohol or drug abuse patient.[facility] CenterIn the event this information is protected by the Federal Confidentiality of Alcohol and Drug Abuse Patient Records regulations: The Federal rules restrict any use of the information to criminally investigate or prosecute any alcohol or drug abuse patient.[facility] Reason for Visit (unrecogniz ed section and content) Reason Comments Received Outside Medical Records MRI Reason Onset Date Comments Refill Request 04/09/2022 Reason Comments Patient Question Orders Reason Onset Date Comments Refill Request 05/06/2022 Reason Onset Date Comments Refill Request 06/05/2022 Reason Comments Establish Care Talk about possible injection Back Pain Reason Onset Date Comments Refill Request 07/06/2022 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 Reason Comments Appointment Specialty Diagnoses / Procedures Referred By Contac t Referred To Contact Diagnoses Lumbar spondylosis Facet arthropathy DDD (degenerative disc disease), lumbar Procedures DSTR NROLYTC AGNT PARVERTEB FCT SNGL LMBR/SACRAL DSTR NROLYTC AGNT PARVERTEB FCT ADDL LMBR/SACRAL DESTRUCTION BY NEUROLYTIC AGENT PARAVERTEBRAL FACET JOINT NERVE(S) W/ IMAGING GUIDANCE LUMBAR SINGLE FACET JOINT DESTRUCTION BY NEUROLYTIC AGENT PARAVERTEBRAL FACET JOINT NERVE(S) W/ IMAGING GUIDANCE LUMBAR SACRAL 1ST ADD FACET JOINT [facility] [address] [place] [address] Referral ID Status Reason Start Date Expiration Date Visits Re quested Visits Authorized [id number] 1 1 Reason Comments Injection Followup Reason Comments New Patient Evaluation Specialty Diagnoses / Procedures Referred By Contac t Referred To Contact Diagnoses Lumbar spondylosis Facet arthropathy Lumbar radiculopathy Procedures CONSULT TO SPINE SURGERY OFFICE/OUTPATIENT [facility] 60-74 MINUTES Juan Jose Hurtado MD [address] [facility] [place] [address] Referral ID Status Reason Start Date Expiration Date Visits Re quested Visits Authorized [id number] Closed 09/24/2022 12/23/2022 1 1 Reason Onset Date Comments Refill Request 11/19/2022 Reason Comments Pain Follow up back pain Reason Onset Date Comments Refill Request 12/13/2022 Reason Onset Date Comments Refill Request 02/19/2023 Reason Comments PACC Reschedule PACC Reason Comments Consult Reason Onset Date Comments Refill Request 04/11/2023 Reason Comments Follow Up Gyant interaction - F/U - attempt made. No answer. Reason Onset Date Comments Refill Request 07/05/2023 Reason Onset Date Comments Refill Request 07/19/2023 Reason Comments Insurance Authorization Medication PA: M ethocarbamol Reason Onset Date Comments Refill Request 09/20/2023 Care Teams (unrecognized sec tion and content) Hop Sorter Relationship Specialty Start Date End Date Ernesto Rubin, GEOLOGY PROFESSOR [address] [place] [address] PCP - General Family Practice 04/06/16 Hop Sorter Relationship Specialty Start Date End Date Ernesto Rubin, GEOLOGY PROFESSOR [address] [place] [address] PCP - General Family Practice 04/06/16 Hop Sorter Relationship Specialty Start Date End Date Ernesto Rubin, GEOLOGY PROFESSOR [address] [place] [address] PCP - General Family Practice 04/06/16 Hop Sorter Relationship Specialty Start Date End Date Ernesto Rubin, GEOLOGY PROFESSOR [address] [place] [address] PCP - General Family Medicine 04/06/16 Hop Sorter Relationship Specialty Start Date End Date Ernesto Ruibn, GEOLOGY PROFESSOR [address] [place] [address] PCP - General Family Medicine 04/06/16 Hop Sorter Relationship Specialty Start Date End Date Ernesto Rubin, GEOLOGY PROFESSOR [address] [place] [address] PCP - General Family Medicine 04/06/16 Hop Sorter Relationship Specialty Start Date End Date Ernesto Rubin, GEOLOGY PROFESSOR [address] [place] [address] PCP - General Family Medicine 04/06/16 Hop Sorter Relationship Specialty Start Date End Date Ernesto Rubin, GEOLOGY PROFESSOR [address] [place] [address] PCP - General Family Medicine 04/06/16 Hop Sorter Relationship Specialty Start Date End Date Ernesto Rubin, GEOLOGY PROFESSOR [address] [place] [address] PCP - General Family Medicine 04/06/16 Hop Sorter Relationship Specialty Start Date End Date Ernesto Rubin, GEOLOGY PROFESSOR [address] [place] [address] PCP - General Family Medicine 04/06/16 Hop Sorter Relationship Specialty Start Date End Date Ernesto Rubin, GEOLOGY PROFESSOR [address] [place] [address] PCP - General Family Medicine 04/06/16 Hop Sorter Relationship Specialty Start Date End Date Ernesto Rubin, GEOLOGY PROFESSOR [address] [place] [address] PCP - General Family Medicine 04/06/16 Hop Sorter Relationship Specialty Start Date End Date Ernesto Rubin, GEOLOGY PROFESSOR [address] [place] [address] PCP - General Family Medicine 04/06/16 Hop Sorter Relationship Specialty Start Date End Date Ernesto Rubin, GEOLOGY PROFESSOR [address] [place] [address] PCP - General Family Medicine 04/06/16 Hop Sorter Relationship Specialty Start Date End Date Ernesto Rubin, GEOLOGY PROFESSOR [address] [place] [address] PCP - General Family Medicine 04/06/16 Hop Sorter Relationship Specialty Start Date End Date Ernesto Rubin, GEOLOGY PROFESSOR [address] [place] [address] PCP - General Family Medicine 04/06/16 Hop Sorter Relationship Specialty Start Date End Date Ernesto Rubin, GEOLOGY PROFESSOR [address] [place] [address] PCP - General Family Medicine 04/06/16 Hop Sorter Relationship Specialty Start Date End Date Ernesto Rubin, GEOLOGY PROFESSOR [address] [place] [address] PCP - General Family Medicine 04/06/16 Hop Sorter Relationship Specialty Start Date End Date Ernesto Rubin, GEOLOGY PROFESSOR [address] [place] [address] PCP - General Family Medicine 04/06/16 Hop Sorter Relationship Specialty Start Date End Date Ernesto Rubin, GEOLOGY PROFESSOR [address] [place] [address] PCP - General Family Medicine 04/06/16 Hop Sorter Relationship Specialty Start Date End Date Ernesto Rubin, GEOLOGY PROFESSOR [address] [place] [address] PCP - General Family Medicine 04/06/16 INFORMATION SOURCE (unrecogn ized section and content) DATE CREATED AUTHOR AUTHOR'S ORGANIZ ATION 04/22/2023 [facility] DATE CREATED AUTHOR AUTHOR'S ORGANIZ ATION 08/23/2023 [facility] Continuous Active and Recently Administ ered Medications (unrecognized section and content) PRN Medication Order 08/30/2022 08/31/2022 09/01/2022 bupivacaine 0.5 % injection (MARCAINE ISABELLA) (CANCELED) X (OR/PROCEDURE) PRN, Starting on Wed09/01/22 at 1139, Until Wed09/01/22 at 1158, Intraprocedure 1139 (Given - Provid er: Juan Jose Hurtado MD) fentaNYL 50 mcg/mL injection (SUBLIMAZE) (CANCELED) X (OR/PROCEDURE) PRN, Starting on Wed09/01/22 at 1125, Until Wed09/01/22 at 1158, Intraprocedure 1125 (Given - Provid er: Felicitas Hartmann RN) lidocaine (PF) 20 mg/mL (2 %) injection (XYLOCAINE) (CANCELED) X (OR/PROCEDURE) PRN, Starting on Wed09/01/22 at 1139, Until Wed09/01/22 at 1158, Intraprocedure 1139 (Given - Provid er: Juan Jose Hurtado MD) midazolam (PF) injection (VERSED) (CANCELED) X (OR/PROCEDURE) PRN, Starting on Wed09/01/22 at 1125, Until Wed09/01/22 at 1158, Intraprocedure 1125 (Given - Provid er: Felicitas Hartmann RN) triamcinolone acetonide injection (KeNALog 40) (CANCELED) X (OR/PROCEDURE) PRN, Starting on Wed09/01/22 at 1140, Until Wed09/01/22 at 1158, Intraprocedure 1140 (Given - Provid er: Juan Jose Hurtado MD) FOR RECORDS PERTAINING TO PATIENTS WHO ARE OR HAVE BEEN ENROLLED IN A CHEMICAL DEPENDENCY/SUBSTANCEABUSE PROGRAM, SOME INFORMATION MAY BE OMITTED. This clinical summary was aggregated from multiple sources. Caution should be exercised in using it in the provision of clinical care. This summary normalizes information from multiple sources, and as a consequence, information in this document may materially change the coding, format and clinical context of patient data. In addition, data may be omitted in some cases. CLINICAL DECISIONS SHOULD BE BASED ON THE PRIMARY CLINICAL RECORDS. [employer] [facility]. provides no warranty or guarantee of the accuracy or completeness of information in this document.
--- NOTE | 2023-10-19 17:49 | STRESSREP ---
Stress Test Report Pharmacologic myocardial perfusion stress test. 68-year-old lady with a history of chest pain and dyspnea Resting EKG demonstrates sinus bradycardia with a rate of 62 bpm. Resting blood pressure is 128/84 mmHg. 0.4 mg of regadenoson was infused per usual protocol followed by rapid intravenous saline flush injection. Continuous EKG monitoring was performed. The maximum heart rate was 82 bpm which was 53% of max impacted heart rate the maximum workload was 1 metabolic equivalent. At rest there were no ST or T wave changes noted to suggest ischemia and at peak infusion nonspecific ST changes were noted which did not meet the criteria for ischemia. No clinical angina is noted. The final blood pressure was 118/84 mmHg. Myocardial perfusion protocol. 12.0 mCi of technetium 99m sestamibi was injected at rest. 0.4 mg of regadenoson was infused per usual protocol. At peak infusion 35.1 mCi of technetium 99m sestamibi was injected stress images were obtained stress and rest images were reconstructed and compared in the short axis vertical long and horizontal long axis. Gated images were also obtained. Perfusion SPECT analysis: Review of the stress images demonstrate normal uptake of tracer noted in all areas of the myocardium. The resting images similar demonstrated normal uptake of tracer noted in all areas of the myocardium. No areas of reversibility are noted to suggest ischemia and no previous infarct is noted. Gated SPECT analysis: The gated ejection fraction is 82%. Conclusion: Normal pharmacologic myocardial perfusion stress test. Preserved ejection fraction.
== END | disposition home or self-care (01) ==
LOC: CVS 06:57
PROVIDERS: PCP Nurse Practitioner Family; Referring Provider Nurse Practitioner Family; Visit Provider Nurse Practitioner Family
DX: R06.02 Shortness of breath (principal); I10 Essential (primary) hypertension; E78.5 Hyperlipidemia, unspecified; R53.83 Other fatigue
CPT/HCPCS: 78452; 93017; 93306; A9500; Q9957; A4216; C8929; J2785

== ENCOUNTER → 2023-11-03 | Outpatient (CLI) | payer MEDICARE, MEDICAID, SELFPAY ==
--- OUTSIDE RECORDS SUMMARY | 2023-11-03 12:52 | XMS RPT_ITS | CCD ---
Author Name Unknown Address [address] [place] [address] Organization [facility] Care Team Providers Care Activities Attendant Name Role Phone Ernesto Rubin CNP Primary Care Provider JAMAR BEACH CNP Attending Unavailable ERNESTO RUBIN CNP Primary Care Unavaila ble Scottie GAXIOLA, Ernesto Nagy Primary Care Provider 1( [phone] ERNESTO RUBIN Primary Care Unavailable JUAN JOSE [...] G; Translations: [PENICILLIN G] Drug Allergy 05-14-2011 [facility] (20 sources) Sulfonamides (Antibiotic); Translations: [SULFA (SULFONAMIDE ANTIBIOTICS)] Drug Allergy 05-14-2011 H[facility] (18 sources) metFORMIN; Translations: [METFORMIN] Drug Allergy 11-16-2022 GI Upset [facility] Medications Current Medications Medication Drug Class(es) Dates [...] height 163.8 cm Pacc 1 Work Phone: [facility] 04-07-2023 10:45-0400 Body temperature 98.01 [degF] Pacc 1 Work Phone: [facility] 04-07-2023 10:45-0400 Body weight 94.35 kg Pacc 1 Work Phone: [facility] 04-07-2023 10:45-0400 Diastolic blood pressure 70 mm[Hg] Pacc 1 Work Phone: [facility] 04-07-2023 10:45-0400 Heart rate 64 /min Pacc 1 Work Phone: [facility] 04-07-2023 10:45-0400 Respiratory rate 18 /min Pacc 1 Work Phone: [facility] 04-07-2023 10:45-0400 SaO2% (BldA) [Mass fraction] 95 % Pacc 1 Work Phone: [facility] 04-07-2023 10:45-0400 Systolic blood pressure 102 mm[Hg] Pacc 1 Work Phone: [facility] 12-10-2022 14:58-0500 SaO2% (BldA) [Mass fraction] 99 % Den Fairbanks APRN.CNP Work Phone: [facility] 11-16-2022 14:45-0500 Body height 162.6 cm Richmond Cobian MD Work Phone: [facility] 11-16-2022 14:45-0500 Body weight 93.62 kg Richmond Cobian MD Work Phone: [facility] 11-16-2022 14:45-0500 Diastolic blood pressure 73 mm[Hg] Richmond Cobian MD Work Phone: [facility] 11-16-2022 14:45-0500 Heart rate 72 /min Richmond Cobian MD Work Phone: [facility] 11-16-2022 14:45-0500 SaO2% (BldA) [Mass fraction] 96 % Richmond Cobian MD Work Phone: [facility] 11-16-2022 14:45-0500 Systolic blood pressure 133 mm[Hg] Richmond Cobian MD Work Phone: [facility] 09-01-2022 12:00-0500 Diastolic blood pressure 66 mm[Hg] Juan Jose Hurtado MD Work Phone: [facility] 09-01-2022 12:00-0500 Respiratory rate 17 /min Juan Jose Hurtado MD Work Phone: [facility] 09-01-2022 12:00-0500 SaO2% (BldA) [Mass fraction] 95 % Juan Jose Hurtado MD Work Phone: [facility] 09-01-2022 12:00-0500 Systolic blood pressure 112 mm[Hg] Juan Jose Hurtado MD Work Phone: [facility] 09-01-2022 11:37-0500 Heart rate 66 /min Juan Jose Hurtado MD Work Phone: [facility] 09-01-2022 10:12-0500 Body temperature 97.5 [degF] Juan Jose Hurtado MD Work Phone: [facility] 06-10-2022 11:47-0400 Body weight 98.88 kg Den Fairbanks SURVEY PARTY CHIEF.FIREWORKS INSPECTOR Work Phone: [facility] 06-10-2022 11:47-0400 Heart rate 72 /min Den Fairbanks SURVEY PARTY CHIEF.FIREWORKS INSPECTOR Work Phone: [facility] 06-10-2022 11:47-0400 SaO2% (BldA) [Mass fraction] 98 % Den Fairbanks SURVEY PARTY CHIEF.FIREWORKS INSPECTOR Work Phone: [facility] 02-26-2022 13:53-0400 Body weight 96.62 kg Den Fairbanks APRN.FIREWORKS INSPECTOR Work Phone: [facility] Encounters Encounter Date Encounter Type Care Provider Facility Start: 09-20-2023 Refill Den GIL.FIREWORKS INSPECTOR Work Phone: Pain Management Procedures Date Procedure [...] Work Phone: Start: 04-22-2011 Mammography Den Fairbanks APRN.FIREWORKS INSPECTOR Work Phone: Plan of Treatment Date Care Activity Detail Author Start: 04-01-2026 DIABETES SCREEN DIABETES SCREEN [facility] Start: 06-01-2024 Urine microalbumin profile DTaP,Tdap,Td Vaccine (2 - Td or Tdap) [facility] Start: 10-01-2023 Hemoglobin A1c/Hemoglobin.total in Blood HBA1C [facility] Start: 06-11-2023 Influenza vaccination [facility] Start: 10-11-2022 ADVANCE DIRECTIVE DISCUSSION ADVANCE DIRECTIVE DISCUSSION [facility] Start: 06-11-2022 Influenza vaccination [facility] Start: 2022 ADVANCE DIRECTIVE DISCUSSION ADVANCE DIRECTIVE DISCUSSION [facility] Start: 2022 BONE DENSITY BONE DENSITY [facility] Start: 2022 Bone Density Screening Bone Density Screening [facility] Start: 2022 PNEUMOCOCCAL: 65+ (1 - PCV) PNEUMOCOCCAL: 65+ (1 - PCV) [facility] Start: 02-17-2022 LIPID SCREEN LIPID SCREEN [facility] Start: 02-18-2020 DIABETES SCREEN DIABETES SCREEN [facility] Start: 02-17-2018 Hepatitis B surface antibody level LDL CHOLESTEROL [facility] Start: 2017 Hepatitis B Vaccine (1 of 3 - Risk 3-dose series) Hepatitis B Vaccine (1 of 3 - Risk 3-dose series) [facility] Start: 2017 RSV Vaccine (1 - 1-dose 60+ series) RSV Vaccine (1 - 1-dose 60+ series) [facility] Start: 05-11-2016 PAP TESTING PAP TESTING [facility] Start: 04-22-2012 Mammography [facility] Start: 2007 SHINGRIX VACCINE (1 of 2) SHINGRIX VACCINE (1 of 2) [facility] Start: 2002 COLOGUARD (FIT-DNA) COLOGUARD (FIT-DNA) [facility] Start: 2002 Colonoscopy COLONOSCOPY [facility] Start: 2002 COLORECTAL CANCER SCREENING COLORECTAL CANCER SCREENING [facility] Start: [address] COLONOGRAPHY [facility] Start: 2002 FECAL OCCULT BLOOD FECAL OCCULT BLOOD [facility] Start: 2002 SIGMOIDOSCOPY SIGMOIDOSCOPY [facility] Start: 1987 HPV TESTING HPV TESTING [facility] Start: 1976 Urine microalbumin profile [facility] Start: 1975 ANNUAL PCP TEAM CHRONIC DISEASE VISIT ANNUAL PCP TEAM CHRONIC DISEASE VISIT [facility] Start: 1975 HEPATITIS C SCREENING HEPATITIS C SCREENING [facility] Start: 1975 HIV SCREENING HIV SCREENING [facility] Start: 1975 SPIROMETRY SPIROMETRY [facility] Start: 1967 3 comp foot exam completed DIABETIC FOOT EXAM [facility] Start: 1967 Hepatitis B screening URINE ALBUMIN:CREATININE RATIO [facility] Start: 1967 Hepatitis C antibody, confirmatory test DILATED RETINAL EXAM [facility] Start: 1963 PNEUMOCOCCAL (1 - PCV) PNEUMOCOCCAL (1 - PCV) [facility] Start: 1963 Pneumococcal Vaccine: 65+ (1 - PCV) Pneumococcal Vaccine: 65+ (1 - PCV) [facility] Start: 1963 PNEUMOCOCCAL: 65+ (1 - PCV) PNEUMOCOCCAL: 65+ (1 - PCV) [facility] Start: 1962 COVID-19 VACCINE (#1) COVID-19 VACCINE (#1) [facility] Start: 1957 COVID-19 VACCINE (#1) COVID-19 VACCINE (#1) [facility] Dstr nrolytc agnt parverteb fct addl lmbr/sacral DSTR NROLYTC AGNT PARVERTEB FCT ADDL LMBR/SACRAL Procedures Routine Lumbar spondylosis Facet arthropathy Ordered: 06/10/2022 [facility] Work Phone: Immunizations Immunization Date Immunization Notes Care Provider Fa cili 07-11-2015 influenza, injectabl e, quadrivalent, contains preservative Den Fairbanks SURVEY PARTY CHIEF.FIREWORKS INSPECTOR Work Phone: [facility] Work Phone: 07-11-2015 influenza virus vaccine, unspecified formulation Den Fairbanks SURVEY PARTY CHIEF.FIREWORKS INSPECTOR Work Phone: [facility] 07-11-2011 influenza virus vaccine, unspecified formulation Den Fairbanks SURVEY PARTY CHIEF.FIREWORKS INSPECTOR Work Phone: [facility] Payers Date Payer Category Payer Medicaid [id number] 2022 Medicaid [id number] 2022 Medicare [id number] 2022 Private Health Insurance [id number] 2014 Medicaid [employer] [id number] 2014-Present [phone] [address] [place] [address] Medicaid [id number] 2014 Medicaid [id number] 1955 Unknown [id number] Social History Date Type Detail Facility Start: 10-23-2011 End: 06-10-2022 Tobacco smoking status NHIS Ex-smoker [facility] End: 06-23-1985 History of tobacco use Current smoker [facility] End: 06-23-1985 History of tobacco use Cigarette Smoker [facility] Start: 10-23-2011 End: 03-29-2023 Cigarettes smoked current (pack per day) - Reported 0.2 [facility] Start: 10-23-2011 End: 06-10-2022 Tobacco use and exposure Smokeless tobacco non-user [facility] Start: 02-11-2021 End: 04-21-2023 Alcohol intake Current non-drinker of alcohol (finding) [facility] Start: 1955 Sex Assigned At Female C [facility] Start: 08-03-2022 End: 09-01-2022 Exposure to SARS-CoV-2 (event) Not sure [facility] Start: 03-29-2023 End: 04-21-2023 Tobacco use panel [facility] Adult Depression Screening Assessment 1 [facility] Start: 01-02-2022 Gender identity Identifies as female gender (finding) [facility] Start: 02-16-2022 Sexual orientation Heterosexual (fin ding) [facility] Clinical Notes 02-26-2022 to 09-20-2023 Telephone Encounter [...] mouth once daily. Authorizing Provider: DEN FAIRBANKS APRN.FIREWORKS INSPECTOR Received a refill request via kenxushart from patient for the following medication(s): Requested Prescriptions Pending Prescriptions Disp Refills meloxicam (MOBIC) 15 mg tablet 30 tablet 1 Sig: Take 1 tablet by mouth once daily. The pharmacy has been populated. Last (Rx'd/filled) by 07/19/2023 by Den Fairbanks CNP Last Appointment(s) 12/10/2022 with Den Fairbanks CNP Next Appointment(s) None Routing to provider. Please review/advise. Kaleigh Abrams RN documented in this encounter [facility] 08-23-2023 Miscellaneous Notes Received secure email from [employer]. [facility] updated the outcome for PA: Favorable Request Young: [id number] PA created on: 2023-08-23 07:46:53 -0500 Received prior authorization via [employer]. Prescription: Methocarbamol 750mg tablets Form: [facility] Medicare Part D Young: [id number] DILAN Rx #: [id number] Awaiting authorization. documented in this encounter [facility] 07-19-2023 Miscellaneous Notes The following approved medication requests have been transmitted electronically. Requested Prescriptions Signed Prescriptions Disp Refills meloxicam (MOBIC) 15 mg tablet 30 tablet 1 Sig: Take 1 tablet by mouth once daily. Authorizing Provider: DEN FAIRBANKS APRN.CNP Received a refill request via kenxushart from patient for the following medication(s): Requested Prescriptions Pending Prescriptions Disp Refills meloxicam (MOBIC) 15 mg tablet 30 tablet 1 Sig: Take 1 tablet by mouth once daily. The pharmacy has been populated. Last (Rx'd/filled) by 04/12/2023 by Den Fairbanks CNP Last Appointment(s) 12/10/2022 with Den Fairbanks CNP Next Appointment(s) None Order pended. Please review/advise. Kaleigh Abrams RN documented in this encounter [facility] 07-05-2023 Miscellaneous Notes The following approved medication requests have been transmitted electronically. Requested Prescriptions Signed Prescriptions Disp Refills methocarbamol (ROBAXIN-750) 750 mg tablet 60 tablet 1 Sig: Take 1 tablet by mouth twice daily as needed. Authorizing Provider: DEN FAIRBANKS APRN.CNP Received a refill request via Rapidleat from the patient for the following medication(s): Requested Prescriptions Pending Prescriptions Disp Refills methocarbamol (ROBAXIN-750) 750 mg tablet 60 tablet 1 Sig: Take 1 tablet by mouth twice daily as needed. The pharmacy has been populated. Last (Rx'd/filled) by Den Fairbanks CNP on 04/12/23 Last Appointment(s) 12/10/22 with Den Fairbanks CNP Next Appointment(s) None Please review/advise. Sade Godoy Ma documented in this encounter [facility] 06-27-2023 Miscellaneous Notes The following approved medication [...] Gabbi Doyle RN documented in this encounter [facility] 04-21-2023 Note HNO ID: [id number] Author: Laura Toure PA-C Service: ? Author Type: Physician Sales Support Consultant Type: Progress Notes Filed: 04/23/2023 2:53 PM Note Text: FOLLOW UP VISIT - CHOLECYSTECTOMY NAME: Davin Arriola [facility] NO.: [id number] DATE OF SERVICE: 04/21/2023 : 1955 REFERRING PHYSICIAN: Ernesto Rubin, FIREWORKS INSPECTOR Davin is a patient I am following [...] with me as needed. Laura Toure PA-C [facility] 04-17-2023 Note HNO ID: [id number] Author: Mina Petit MD Service: Hospital Medicine Author Type: Physician Type: Progress Notes Filed: 04/17/2023 2:58 PM Note Text: DEPARTMENT OF HOSPITAL MEDICINE PROGRESS NOTE SERVICE DATE: 04/17/2023 SERVICE TIME: 2:20 PM Hospital Medicine/Primary Attending: Mina Petit MD NIGHT AND WEEKEND COVERAGE: [place] COVERAGE: Nights: [phone], please page [facility] Night coverage pager [phone]. Reason for Admission: Postoperative hypoxemia INTERVAL HPI: [...] consultation by s (more content not included)... [facility] 04-17-2023 Note HNO ID: [id number] Author: Marii Ray MD Service: General Surgery Author Type: Physician Type: Progress Notes Filed: 04/17/2023 11:22 AM Note Text: GENERAL SURGERY PROGRESS NOTE Patient Name: Davin Arriola Account #: Data Unavailable Admission Date: 04/14/2023 Date of Evaluation: 04/17/2023 Time of Evaluation: 11:20 AM POST OP DAY: 2 [facility] Principal Problem: Acute respiratory failure with [...] MD Electronically signed at: 11:20 AM Pager [phone] [facility] 04-17-2023 Note HNO ID: [id number] Author: Interface Note Service: ? Author Type: ? Type: Progress Notes Filed: 04/17/2023 3:56 AM Note Text: Epic Scheduled Downtime: 04/17/2023 1:02:30 AM to 04/17/2023 3:40:00 AM [facility] 04-16-2023 Note HNO ID: [id number] Author: Mina Petit MD Service: Hospital Medicine Author Type: Physician Type: Progress Notes Filed: 04/16/2023 4:14 PM Note Text: DEPARTMENT OF HOSPITAL MEDICINE PROGRESS NOTE SERVICE DATE: 04/16/2023 SERVICE TIME: 3:42 PM Hospital Medicine/Primary Attending: Mina Petit MD NIGHT AND WEEKEND COVERAGE: [place] COVERAGE: Nights: [phone], please page [facility] Night coverage pager [phone]. Reason for Admission: Postoperative hypoxemia INTERVAL HPI: [...] 04/01/2023 6.8 02/17/2017 6.2 09/15/2016 6.1 HBA1C, [place] (%) Date Value 03/10/2011 5.6 11/14/2010 5.8 [...] Liters: 2.00 Physic (more content not included)... [facility] 04-16-2023 Note HNO ID: [id number] Author: Nuria Teresa PA-C Service: Hospital Medicine Author Type: Physician Sales Support Consultant Type: Plan of Care Filed: 04/16/2023 4:33 [...] on abx. Nuria Teresa PA-C 4:32 AM [facility] 04-15-2023 Note HNO ID: [id number] Author: Mina Petit MD Service: Hospital Medicine Author Type: Physician Type: Progress Notes Filed: 04/15/2023 5:56 PM Note Text: DEPARTMENT OF HOSPITAL MEDICINE PROGRESS NOTE SERVICE DATE: 04/15/2023 SERVICE TIME: 5:01 PM Hospital Medicine/Primary Attending: Mina Petit MD NIGHT AND WEEKEND COVERAGE: [place] COVERAGE: Nights: [phone], please page [facility] Night coverage pager [phone]. Reason for Admission: Postoperative hypoxemia INTERVAL HPI: [...] Physical Exam Perfor (more content not included)... [facility] 04-14-2023 Note HNO ID: [id number] Author: Helen Butcher PA-C Service: General Surgery Author Type: Physician Sales Support Consultant Type: Plan of Care Filed: 04/14/2023 2:56 PM Note Text: Patient of Dr. Davidson. S/p lap violet today with increased respiratory needs. Admitted to hospital medicine for continued care. Will follow while inpatient. SIGNATURE: Helen Butcher PA-C PATIENT NAME: Davin Arriola DATE: April 14, 2023 TIME: 2:56 PM [facility] 04-14-2023 Note HNO ID: [id number] Author: Mina Petit MD Service: Hospital Medicine [...] Mina Petit MD NIGHT AND WEEKEND COVERAGE: [place] COVERAGE: Nights: [phone], please page [facility] Night coverage pager [phone]. Reason for Admission: Postoperative hypoxemia INTERVAL HPI: [...] 04/01/2023 6.8 02/17/2017 6.2 09/15/2016 6.1 HBA1C, [place] (%) Date Value 03/10/2011 5.6 11/14/2010 5.8 [...] other signs of (more content not included)... [facility] documented as of this encounter (statuses as of 04/27/2023) [facility]07-[facility]-2023 History of Past illness Narrative* Problem Noted Date Diagnosed Date Resolved Date RUQ pain 04/14/2023 04/14/2023 Calculus of gallbladder with acute on chronic cholecystitis without obstruction 04/14/20232022 Hypomagnesemia 04/14/2023 04/18/2023 documented as of this encounter (statuses as of 06/28/2023) [address]05-2023 History of Past illness Narrative* Problem Noted Date Diagnosed Date Resolved Date RUQ pain 04/14/2023 04/14/2023 Calculus of gallbladder with acute on chronic cholecystitis without obstruction 04/14/20232022 Hypomagnesemia 04/14/2023 04/18/2023 documented as of this encounter (statuses as of 07/05/2023) [facility] History of Past illness Narrative* Problem Noted Date Diagnosed Date Resolved Date RUQ pain 04/14/2023 04/14/2023 Calculus of gallbladder with acute on chronic cholecystitis without obstruction 04/14/20232022 Hypomagnesemia 04/14/2023 04/18/2023 documented as of this encounter (statuses as of 07/20/2023) [facility] History of Past illness Narrative* Problem Noted Date Diagnosed Date Resolved Date RUQ pain 04/14/2023 04/14/2023 Calculus of gallbladder with acute on chronic cholecystitis without obstruction 04/14/20232022 Hypomagnesemia 04/14/2023 04/18/2023 documented as of this encounter (statuses as of 08/23/2023) [facility] History of Past illness Narrative* Problem Noted Date Diagnosed Date Resolved Date RUQ pain 04/14/2023 04/14/2023 Calculus of gallbladder with acute on chronic cholecystitis without obstruction 04/14/20232022 Hypomagnesemia 04/14/2023 04/18/2023 documented as of this encounter (statuses as of 09/21/2023) [facility]-2023 NoteHNO ID: [id number] Author: ALMA Jeronimo Service: ? Author Type: Personnel Records Clerk Type: Anesthesia Procedure Notes Filed: 04/14/2023 8:01 [...] April 14, 2023 TIME: 7:57 AM CSN: [id number] Miscellaneous Notes* Telephone Encounter - Den Fairbanks APRN.CNP - 04/12/2023 9:30 AM EDT The following approved medication requests have been transmitted electronically. Requested Prescriptions Signed Prescriptions Disp Refills meloxicam (MOBIC) 15 mg tablet 30 tablet 1 Sig: Take 1 tablet by mouth once daily. Authorizing Provider: DEN FAIBRANKS methocarbamol (ROBAXIN-750) 750 mg tablet 60 tablet 1 Sig: Take 1 tablet by mouth twice daily as needed. Authorizing Provider: DEN FAIRBANKS APRN.CNP [facility] Instructions* Patient Instructions* Lisandro Escobar APRN.CNP - 04/07/2023 11:09 AM EDT PATIENT PREOPERATIVE INSTRUCTIONS Aries Davidson MD has scheduled you for your procedure at this surgery center: [facility]: [phone] -- [address] [facility] [place] [address]. Please read below carefully for your personalized [...] Procedures: - YOU MUST HAVE A RESPONSIBLE GAS STATION SUPERVISOR TAKE YOU HOME. A WEBBING TACKER OR ROPE MAKING MACHINE OPERATOR CANNOT BE MADE A RESPONSIBLE GAS STATION SUPERVISOR. - We recommend that a responsible person [...] Advance Directive, please fax a copy to [phone] or email to for it to be [...] day. Lisandro Escobar APRN.CNP documented [facility] History and physical note * Lisandro Escobar [...] at the request of Dr. Ernesto Rubin, AUTO GLASS WORKER, FIREWORKS INSPECTOR for my opinion and advice regarding Calculus of gallbladder with acute on chronic cholecystitis without obstruction (primary encounter diagnosis) Ruq pain. REVIEW OF SYSTEMS: General: No weight loss, malaise or fevers. Neurological: +RLS, on rx. No history of TIA's, stroke, TUBE KNITTER tumor, impaired sensorium, hemiplegia, paraplegia or quadraplegia. No neurological symptoms or problems. Respiratory: Positive for: asthma (rx as needed). Cardiovascular: Positive for: hyperlipidemia (on rx) and hypertension (on rx) Negative for: anticoagulation therapy, arrhythmia, atrial fibrillation, CAD, chest pain, CHF, congenital heart defect, DVT/PE, recent IN, murmur/valvular heart disease, open heart surgery and valve surgery. GI: Positive for: GERD (on rx) and irritable bowel syndrome (D) Negative for: abdominal pain, dysphagia, hepatitis, inflammatory bowel disease, liver disease, nausea, pancreatitis, vomiting and ETOH >2 drinks/day. : No history of dysuria, frequency or incontinence, stones or chronic kidney disease. No difficulty urinating, nocturia > 1 time per night or hematuria. POULTRY FARMER MEAT: Negative for abnormal vaginal bleeding, abnormal vaginal [...] long-term current use of insulin ([facility]) 04/07/2023 Vitamin D deficiency PAST SURGICAL HISTORY [...] (OCUVITE ORAL) Take by mouth. Taking Yes [id number] ACID ORAL Take by mouth. 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 Assessment Patient has the following medical conditions which may affect ayala-operative course: Malignant neoplasm of upper-outer quadrant of right female breast ([facility]) Assessment: s/p lumpectomy and s/p XRT, denies chemo Depression Assessment: and anxiety, stable on rx per pt DDD (degenerative disc disease), lumbar Assessment: on rx, following pain management Type 2 diabetes mellitus without complication, without long-term current use of insulin ([facility]) Assessment: controlled on oral agent Hemoglobin A1C [...] of35.0 to 35.9 in adult ([facility]) Assessment: Body mass index is 35.15 kg/m [...] blood pressure Non-male patient STOP-Bang Score: 4 [id number] Score: Age: 65-74 Sex: female CHF history: No Hypertension history: Yes Stroke/TIA/thromboembolism history: No Vascular disease history: No Diabetes history: Yes [id number] Score: 4 ARISCAT Score: Age: 51-80 Preoperative [...] and consent discussed: yes. Patient / Responsible Democrat agrees to proceed: yes Patient / Surrogate [...] C,E/mins (OCUVITE ORAL) Sig: Take by mouth. [id number] ACID ORAL Sig: Take by mouth. ECG [...] 10:54 AM PAGER/CONTACT #: documented in [facility]23 NoteHNO ID: [id number] Author: Nakia Otero PA-C Service: ? Author Type: Physician Sales Support Consultant Type: Progress Notes Filed: 2023 3:18 PM [...] Patient is requesting to be rescheduled in person.[facility]06-23-2023 Miscellaneous Notes* Telephone Encounter - Nakia [...] be rescheduled in person. Patient lives in [place], [place]. Please reschedule patient at [facility] in one of the openings for nextweek. documented in this encounterDayton [facility]06-[facility]-2023 NoteHNO ID: [id number] Author: Aries Davidson MD Service: ? Author Type: Physician Type: Progress Notes Filed: 03/29/2023 2:52 PM Note Text: HISTORY AND PHYSICAL Davin Arriola 1955 REFERRING PHYSICIAN: Ernesto Rubin, FIREWORKS INSPECTOR CHIEF COMPLAINT: Consult (RUQ pain) HPI: Davin [...] at the request of Dr. Ernesto Rubin, AUTO GLASS WORKER, FIREWORKS INSPECTOR for my opinion and advice regarding Calculus [...] node biopsy PERQ BREAST LOC DEVICE PLACEMT [address] [place] [address] US IMAG Right 05/01/2015 REMOVE TONSILS/ADENOIDS,<12 Y/O [...] A WEEK 12 capsule 0 LACTOSE-REDUCED FOOD/FIBER (AKPZYG-FCPD-TNHO ORAL) Take 1 tablet by mouth twice [...] HISTORY: FAMILY HISTORY Pr (more content not included)...[facility]05-28-2023 Miscellaneous Notes* Telephone Encounter - Den [...] Ran Fairbanks APRN.CNP patient requesting refill via [email or web address] . Please E-Scribe Last OV: 12-10-22 with Ran Fairbanks APRN.CNP Future OV: N/A Last prescribed: 12-10-22 Requested Prescriptions Pending Prescriptions Disp Refills naltrexone 5 mg capsule (CPD) 30 capsule 2 Sig: Take 1 capsule by mouth once daily. Request sent to provider to review ANSELMO Moreno, RN March 05, 2023 3:20 PM documented in this encounterDayton Children'[facility] Hospital05-12-2023 Miscellaneous Notes* Telephone Encounter - Den Fairbanks [...] review Gabbi Doyle RN documented in this encounterDayton Children'S Hospital03-06-2023 Miscellaneous Notes* Telephone Encounter - Den Fairbanks [...] Provider: DEN FAIRBANKS APRN.MINOR documented in this encounterDayton Children'S Hospital03-02-2023 NoteHNO ID: [id number] Author: Den Fairbanks APRN.CNP Service: ? Author Type: Nurse Practitioner Type: Progress Notes Filed: 12/11/2022 9:16 AM Note Text: SUBJECTIVE: [facility] [...] activity was identified. 12/10/2022 by Den Fairbanks APRN.FIREWORKS INSPECTOR Narcotic Agreement reviewed and signed?: N/A on December 10, 2022 The pain panel was N/A Discussion: A discussion was entertained regarding multicomponent back pain source. Discussed conservative options and focus on improvement of function. Discussed the rationale behind interventional approach and how it can facilitate improvement of pain but also diagnostic information that procedures provide. halfway use of any opioid pain medication is [...] proceed. Order with n (more content not included)...[facility] 12-10-2022 History of Present illness Narrative* Den Fairbanks APRN.[facility] - 12/10/2022 2:48 PM EST SUBJECTIVE: Davin Arriola presents to [facility] for a follow up [...] the implant will be [place] [facility]. Chau. Patient is currently taking alpha lipoic acid 800 mg daily Discussed a trial of naltrexone 5 mg for chronic pain. Patient would like to try Encounter Diagnosis ICD-10-CM 1. Lumbar spondylosis M47.816 2. Facet arthropathy M47.819 3. Lumbar radiculopathy M54.16 PDMP website checked and validated. All prescriptions have been APPROPRIATELY filled. No suspiciousactivity was identified. 12/10/2022 by Den Fairbanks APRN.FIREWORKS INSPECTOR Narcotic Agreement reviewed and signed?: N/A on [...] which included preparing to see the patient, xjcb-qu-jcul patient care, completing clinical documentation, performing a medically appropriate examination, counseling and educating the patient/family/caregiver, and ordering medications, tests,or procedures. The above plan and management options were discussed at length with patient. Patient is in agreement with the above and verbalized understanding. Den Fairbanks APRN, CNP December 10, 2022 documented in this encounterDayton Children'S Hospital02-21-2023 NoteHNO ID: [id number] Author: Leah Montanez Service: ? Author Type: ? Type: Progress Notes Filed: 12/01/2022 2:21 PM Note Text: POPULATION HEALTH NAVIGATION OUTREACH Action/[facility] [place] Support: Called pt to schedule an appt in Pain Management. Lvm for pt to call [phone] for scheduling. Patient Identified by Name and : NO Outreach Outcome/Action Unable to reach patient: Left message Did you use a PCP flex slot to schedule this appointment? No Reason for Outreach Care Gap or Scheduling/Wellness visits Payer: Payor: [facility] MEDICARE / Plan: [facility] DUAL COMPLETE HMO POS SNP / Product [...] Signature: Leah Montanez December 01, 2022 2:19 [facility]02-21-2023 History of Present illness Narrative* Leah Montanez - 12/01/2022 2:19 PM EST POPULATION HEALTH NAVIGATION OUTREACH Action/I [place] Support: Called pt to schedule an appt in Pain Management. Lvm for pt to call [phone] for scheduling. Patient Identified by Name and : NO Outreach Outcome/Action Unable to reach patient: Left message Did you use a PCP flex slot to schedule this appointment? No Reason for Outreach Care Gap or Scheduling/Wellness visits Payer: Payor: [facility] MEDICARE / Plan: [facility] DUAL COMPLETE HMO POS SNP / Product [...] 01, 2022 2:19 PM documented in this encounterDayton Children'S Hospital02-21-2023 NotePatient Outreach (NETNAV) DAVIN ARRIOLA ([id number]) 1955 F Date Time Provider Department 12/01/22 NO PCP NETNAV During your visit today, we recorded the following information about you: Leah Nehemiah 12/01/2022 2:21 PM Signed POPULATION HEALTH NAVIGATION OUTREACH Action/[facility] [place] Support: Called pt to schedule an appt in Pain Management. Lvm for pt to call [phone] for scheduling. Patient Identified by Name and : NO Outreach Outcome/Action Unable to reach patient: Left message Did you use a PCP flex slot to schedule this appointment? No Reason for Outreach Care Gap or Scheduling/Wellness visits Payer: Payor: [facility] MEDICARE / Plan: [facility] DUAL COMPLETE HMO POS SNP / Product [...] mouth daily at bedtime. - LACTOSE-REDUCED FOOD/FIBER (PPRIDD-JYHL-JNJX ORAL) Take 1 tablet by mouth twice [...] r*12/08/2016 Encounter Status:Closed by LEAH MONTANEZ on 12/01/22[facility] 11-19-2022 Miscellaneous Notes* Telephone Encounter - [...] Provider: DEN FAIRBANKS APRN.CNP documented in this encounterDayton Children'S Hospital02-06-2023 NoteHNO ID: [id number] Author: [place] Cobian MD Service: ? Author Type: Physician Type: Progress Notes Filed: 11/16/2022 3:21 PM Note Text: SPINE SURGERY NEW PATIENT This is an in-person visit. PCP: Ernesto Rubin, AUTO GLASS WORKER, FIREWORKS INSPECTOR REFERRING PROVIDER: Dr. Hurtado SUBJECTIVE HISTORY OF [...] biopsy PERQ BREAST LOC DEVICE PLACEMT [facility] US IMAG Right 05/01/2015 REMOVE TONSILS/ADENOIDS,<12 Y/O [...] by mouth daily at bedtime. LACTOSE-REDUCED FOOD/FIBER (UKWFYS-OAPA-MZLH ORAL) Take 1 tablet by mouth twice daily. VIT C/E/B6/FA/B12/ARGIN/PEP XT (CARDIOTEK, BIOPERINE, ORAL) Take 1 tablet by mouth twice daily. COQ10, UBIQUINOL, ORAL Take 1 tablet by mouth once daily. Garlic cap Take 1 tablet by mouth daily at bedtime. L-LYSINE ORAL Take 1 tablet by mouth once daily. NIACIN, NIACINAMIDE, ORA (more content not included)...[facility]02-06-2023 History of Present illness Narrative* [place] Cobian MD - 11/16/2022 2:53 PM EST Images from the original note were not included. SPINE SURGERY NEW PATIENT This is an in-person visit. PCP: ARLYN JoynerP, FIREWORKS INSPECTOR REFERRING PROVIDER: Dr. Hurtado SUBJECTIVE HISTORY OF [...] by mouth daily at bedtime. LACTOSE-REDUCED FOOD/FIBER (PXNLVO-JWEK-FBVY ORAL) Take 1 tablet by mouth twice [...] 2022 at 3:15 PM. documented in this encounterDayton Children'S Hospital12-15-2022 NoteHNO ID: [id number] Author: Den Fairbanks APRN.FIREWORKS INSPECTOR Service: ? Author Type: Nurse Practitioner Type: Progress Notes Filed: 09/25/2022 9:54 AM Note Text: SUBJECTIVE: Davin [facility] for [facility] follow [...] but also diagnostic information that procedures provide. 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 The above plan and management options were discussed at length with patient. Patient is in agreement with the above and verbalized understanding. Den Fairbanks APRN, MINOR [facility] of Present illness Narrative* Den Fairbanks APRN.MINOR - 09/24/2022 2:46 PM EST SUBJECTIVE: Davin Arriola [facility] for a follow up [...] suspiciousactivity was identified. 09/24/2022 by Den Fairbanks APRN.FIREWORKS INSPECTOR Narcotic Agreement reviewed and signed?: N/A on [...] which included preparing to see the patient, befx-oh-nvuj patient care, completing clinical documentation, performing a medically appropriate examination, and ordering medications, tests, or procedures. The above plan and management options were discussed at length with patient. Patient is in agreement with the above and verbalized understanding. Den Fairbanks APRN, MINOR September 24, 2022 documented in this encounterDayton Children'S Hospital11-22-2022 Surgical operation note* Operative Report - Juan [...] 2022 TIME: 11:42 AM documented in this encounterDayton Children'S Hospital11-22-2022 History and physical note * Juan Jose [...] 2022 TIME: 10:53 AM documented in this encounterDayton Children'S Hospital10-27-2022 Miscellaneous Notes* Telephone Encounter - Sade Godoy [...] September 01 does not work for her. [email or web address] message forwarded to her with above. * [...] LEFT side on 08/13/2022 documented in this encounterDayton Children'S Hospital10-13-2022 Miscellaneous Notes* Telephone Encounter - Sade Godoy [...] later the left side documented in this encounterDayton Children'S Hospital09-27-2022 Miscellaneous Notes* Telephone Encounter - Den Fairbanks [...] review Gabbi Doyle RN documented in this encounterDayton Children'S Hospital08-31-2022 History of Present illness Narrative* Den Fairbanks APRN.FIREWORKS INSPECTOR - 06/10/2022 11:50 AM EDT SUBJECTIVE: [facility] [...] chronic pain [facility] Encounter Diagnosis ICD-10-CM 1. Lumbar spondylosis M47.816 DSTR NROLYTC AGNT PARVERTEB FCT SNGL LMBR/SACRAL DSTR NROLYTC AGNT PARVERTEB FCT ADDL LMBR/SACRAL PARKING FOR HANDICAPPED 2. Facet arthropathy M47.819 DSTR NROLYTC AGNT PARVERTEB FCT SNGL LMBR/SACRAL DSTR NROLYTC AGNT PARVERTEB FCT ADDL LMBR/SACRAL PARKING FOR HANDICAPPED 3. Lumbar radiculopathy M54.16 [facility] checked and validated. All prescriptions have been APPROPRIATELY filled. No suspiciousactivity was identified. 06/10/2022 by Den Fairbanks APRN.FIREWORKS INSPECTOR Narcotic Agreement reviewed and signed?: N/A on [...] which included preparing to see the patient, clxb-pk-iehh patient care, completing clinical documentation, performing a medically appropriate examination, and ordering medications, tests, or procedures. The above plan and management options were discussed at length with patient. Patient is in agreement with the above and verbalized understanding. Den Fairbanks APRN, CNP June 10, 2022 documented in this encounterDayton Children'S Hospital08-30-2022 Miscellaneous Notes* Telephone Encounter - Den Fairbanks [...] and advise. Erika Lemos documented in this encounterDayton Children'S Hospital07-27-2022 Miscellaneous Notes* Telephone Encounter - Den Fairbanks [...] review Gabbi Doyle RN documented in this encounterDayton Children'S Hospital07-01-2022 Miscellaneous Notes* Telephone Encounter - Den Fairbanks [...] this medication to her documented in this encounterDayton Children'S Hospital07-01-2022 Miscellaneous Notes* Telephone Encounter - Den Fairbanks [...] review Gabbi Doyle RN documented in this encounterDayton Children'S Hospital06-02-2022 Miscellaneous Notes* Telephone Encounter - Gabbi Doyle RN - 03/12/2022 9:01 AM EDT Additional Jade Magneth[employer] message sent at this time * Telephone Encounter - Sade Godoy Ma - 03/06/2022 2:[address] Hurtado review patient's Lumbar MRI. Recommends a bilateral L4-5 vs L5-S1 transforaminal epidural steroid injection. Notified patient via [employer]. Will await patient response. * Telephone Encounter - Sade Godoy Ma - 03/05/2022 10:18 AM EDT Received outside images on a CD from [facility]. 02/09/2022 MRI Lumbar documented in this encounterDayton Children'S Hospital05-19-2022 History of Present illness Narrative* Den Fairbanks APRN.MINOR - 02/26/2022 1:42 PM EDT SUBJECTIVE: Davin Ar[facility]ola [facility] for a follow up [...] is not currently receiving medications through the [facility]. REVIEW OF SYSTEMS: Constitutional: (-) [...] pain and reports that her knees are oufo-bs-flke. She recently received her first set of cortisone shots Patient had a lumbar MRI at [facility] in [place] a few weeks ago. She will obtain [...] options discussed. Patient will obtain disc from [facility] with recent lumbar MRI. Once received we will let Dr. Hurtado review for further recommendations. May consider transforaminal injection 4. Encouraged regular home exercise program. 5) F/U in TBD I spent a total of 25 minutes on the date of the service which included preparing to see the patient, rkkb-mu-yxry patient care, completing clinical documentation, performing a medically appropriate examination and ordering medications, tests, or procedures. The above plan and management options were discussed at length with patient. Patient is in agreement with the above and verbalized understanding. Den Fairbanks APRN, CNP February 26, 2022 documented in this encounterDayton Children'S HospitalEvaluation note* Diagnosis Lumbar spondylosis- Primary Lumbosacral spondylosis without myelopathy DDD (degenerative disc disease), lumbar Degeneration of lumbar or lumbosacral intervertebral disc Lumbar radiculopathy Thoracic or lumbosacral neuritis or radiculitis, unspecified documented in this encounter [facility]* Diagnosis Lumbar spondylosis- Primary Lumbosacral spondylosis without myelopathy Facet arthropathy Spondylosis of unspecified site without mention of myelopathy Lumbar radiculopathy Thoracic or lumbosacral neuritis or radiculitis, unspecified documented in this encounter [facility]* Diagnosis Lumbar spondylosis- Primary Lumbosacral spondylosis without myelopathy Facet arthropathy Spondylosis of unspecified site without mention of myelopathy DDD (degenerative disc disease), lumbar Degeneration of lumbar or lumbosacral intervertebral disc Lumbar spondylosis Lumbosacral spondylosis without myelopathy Facet arthropathy Spondylosis of unspecified site without mention of myelopathy DDD (degenerative disc disease), lumbar Degeneration of lumbar or lumbosacral intervertebral disc documented in this encounter [facility]* Diagnosis Lumbar spondylosis- Primary Lumbosacral spondylosis without myelopathy Facet arthropathy Spondylosis of unspecified site without mention of myelopathy DDD (degenerative disc disease), lumbar Degeneration of lumbar or lumbosacral intervertebral disc Lumbar spondylosis Lumbosacral spondylosis without myelopathy Facet arthropathy Spondylosis of unspecified site without mention of myelopathy DDD (degenerative disc disease), lumbar Degeneration of lumbar or lumbosacral intervertebral disc documented in this encounter [facility]* Diagnosis Lumbar spondylosis- Primary Lumbosacral spondylosis without myelopathy Facet arthropathy Spondylosis of unspecified site without mention of myelopathy Lumbar radiculopathy Thoracic or lumbosacral neuritis or radiculitis, unspecified documented [facility] this [facility]* Diagnosis Lumbar spondylosis Lumbosacral spondylosis without myelopathy Facet arthropathy Spondylosis of unspecified site without mention of myelopathy Lumbar radiculopathy Thoracic or lumbosacral neuritis or radiculitis, unspecified documented in this encounter [facility]* Diagnosis Lumbar spondylosis- Primary Lumbosacral spondylosis without myelopathy Facet arthropathy Spondylosis of unspecified site without mention of myelopathy Lumbar radiculopathy Thoracic or lumbosacral neuritis or radiculitis, unspecified documented in this encounter [facility] note* Diagnosis Pre-operative examination- Primary [...] cholecystitis without obstruction documented in this encounter [facility] HospitalReason for referral (narrative)* Outpatient Procedure (Routine) - Closed Specialty Diagnoses / Procedures Referred By Contac t Referred To [facility] Diagnoses Pre-operative examination Procedures ECG COMPLETE ECG ROUTINE ECG W/LEAST 12 LDS W/I&R Lisandro Escobar APRN.CNP [address] [place] [address] [facility] [place] [address] [place] [address] Referral ID Status Reason Start Date Expiration Date V isits Requested Visits Authorized [id number] Closed Auto-Generate d Referral 04/07/2023 04/06/2024 1 1 [facility] Advance Directives Documents on File Type Date Recorded Patient Chief Informatics Officer Expl anation Advance Directive(s) 02/25/2021 10:00 AM [...] radiculopathy Procedures CONSULT TO SPINE SURGERY OFFICE/OUTPATIENT [facility] 60-74 MINUTES Juan Jose Hurtado MD [address] [facility] [place] [address] Referral ID Status Reason Start Date Expiration Date V isits Requested Visits Authorized [id number] Authorized 09/24/2022 12/23/2022 1 1 Additional Source Comments Source Comments (unrecognize d section and content) In the event this informatio n is protected by the Federal Confidentiality of Alcohol and Drug Abuse Patient Records regulations: The Federal rules restrict any use of the information to criminally investigate or prosecute any alcohol or drug abuse patient.[facility] HospitalIn the event this information is protected by the Federal Confidentiality of Alcohol and Drug Abuse Patient Records regulations: The Federal rules restrict any use of the information to criminally investigate or prosecute any alcohol or drug abuse patient.[facility] HospitalIn the event this information is protected by the Federal Confidentiality of Alcohol and Drug Abuse Patient Records regulations: The Federal rules restrict any use of the information to criminally investigate or prosecute any alcohol or drug abuse patient.[facility] HospitalIn the event this information is protected by the Federal Confidentiality of Alcohol and Drug Abuse Patient Records regulations: The Federal rules restrict any use of the information to criminally investigate or prosecute any alcohol or drug abuse patient.[facility] HospitalIn the event this information is protected by the Federal Confidentiality of Alcohol and Drug Abuse Patient Records regulations: The Federal rules restrict any use of the information to criminally investigate or prosecute any alcohol or drug abuse patient.[facility] HospitalIn the event this information is protected by the Federal Confidentiality of Alcohol and Drug Abuse Patient Records regulations: The Federal rules restrict any use of the information to criminally investigate or prosecute any alcohol or drug abuse patient.[facility] HospitalIn the event this information is protected by the Federal Confidentiality of Alcohol and Drug Abuse Patient Records regulations: The Federal rules restrict any use of the information to criminally investigate or prosecute any alcohol or drug abuse patient.[facility] HospitalIn the event this information is protected by the Federal Confidentiality of Alcohol and Drug Abuse Patient Records regulations: The Federal rules restrict any use of the information to criminally investigate or prosecute any alcohol or drug abuse patient.[facility] HospitalIn the event this information is protected by the Federal Confidentiality of Alcohol and Drug Abuse Patient Records regulations: The Federal rules restrict any use of the information to criminally investigate or prosecute any alcohol or drug abuse patient.[facility] HospitalIn the event this information is protected by the Federal Confidentiality of Alcohol and Drug Abuse Patient Records regulations: The Federal rules restrict any use of the information to criminally investigate or prosecute any alcohol or drug abuse patient.[facility] HospitalIn the event this information is protected by the Federal Confidentiality of Alcohol and Drug Abuse Patient Records regulations: The Federal rules restrict any use of the information to criminally investigate or prosecute any alcohol or drug abuse patient.[facility] HospitalIn the event this information is protected by the Federal Confidentiality of Alcohol and Drug Abuse Patient Records regulations: The Federal rules restrict any use of the information to criminally investigate or prosecute any alcohol or drug abuse patient.[facility] HospitalIn the event this information is protected by the Federal Confidentiality of Alcohol and Drug Abuse Patient Records regulations: The Federal rules restrict any use of the information to criminally investigate or prosecute any alcohol or drug abuse patient.[facility] HospitalIn the event this information is protected by the Federal Confidentiality of Alcohol and Drug Abuse Patient Records regulations: The Federal rules restrict any use of the information to criminally investigate or prosecute any alcohol or drug abuse patient.[facility] HospitalIn the event this information is protected by the Federal Confidentiality of Alcohol and Drug Abuse Patient Records regulations: The Federal rules restrict any use of the information to criminally investigate or prosecute any alcohol or drug abuse patient.[facility] HospitalIn the event this information is protected by the Federal Confidentiality of Alcohol and Drug Abuse Patient Records regulations: The Federal rules restrict any use of the information to criminally investigate or prosecute any alcohol or drug abuse patient.[facility] HospitalIn the event this information is protected by the Federal Confidentiality of Alcohol and Drug Abuse Patient Records regulations: The Federal rules restrict any use of the information to criminally investigate or prosecute any alcohol or drug abuse patient.[facility] HospitalIn the event this information is protected by the Federal Confidentiality of Alcohol and Drug Abuse Patient Records regulations: The Federal rules restrict any use of the information to criminally investigate or prosecute any alcohol or drug abuse patient.[facility] HospitalIn the event this information is protected by the Federal Confidentiality of Alcohol and Drug Abuse Patient Records regulations: The Federal rules restrict any use of the information to criminally investigate or prosecute any alcohol or drug abuse patient.[facility] HospitalIn the event this information is protected by the Federal Confidentiality of Alcohol and Drug Abuse Patient Records regulations: The Federal rules restrict any use of the information to criminally investigate or prosecute any alcohol or drug abuse patient.[facility] HospitalIn the event this information is protected by the Federal Confidentiality of Alcohol and Drug Abuse Patient Records regulations: The Federal rules restrict any use of the information to criminally investigate or prosecute any alcohol or drug abuse patient.[facility] HospitalIn the event this information is protected by the Federal Confidentiality of Alcohol and Drug Abuse Patient Records regulations: The Federal rules restrict any use of the information to criminally investigate or prosecute any alcohol or drug abuse patient.[facility] HospitalIn the event this information is protected by the Federal Confidentiality of Alcohol and Drug Abuse Patient Records regulations: The Federal rules restrict any use of the information to criminally investigate or prosecute any alcohol or drug abuse patient.[facility] Hospital[facility] the event this information is protected by the Federal Confidentiality of Alcohol and Drug Abuse Patient Records regulations: The Federal rules restrict any use of the information to criminally investigate or prosecute any alcohol or drug abuse patient.[facility] Hospital[facility] the event this information is protected by the Federal Confidentiality of Alcohol and Drug Abuse Patient Records regulations: The Federal rules restrict any use of the information to criminally investigate or prosecute any alcohol or drug abuse patient.[facility] Hospital[facility] the event this information is protected by the Federal Confidentiality of Alcohol and Drug Abuse Patient Records regulations: The Federal rules restrict any use of the information to criminally investigate or prosecute any alcohol or drug abuse patient.[facility] HospitalIn the event this information is protected by the Federal Confidentiality of Alcohol and Drug Abuse Patient Records regulations: The Federal rules restrict any use of the information to criminally investigate or prosecute any alcohol or drug abuse patient.[facility] Hospital[facility] the event this information is protected by the Federal Confidentiality of Alcohol and Drug Abuse Patient Records regulations: The Federal rules restrict any use of the information to criminally investigate or prosecute any alcohol or drug abuse patient.[facility] HospitalIn the event this information is protected by the Federal Confidentiality of Alcohol and Drug Abuse Patient Records regulations: The Federal rules restrict any use of the information to criminally investigate or prosecute any alcohol or drug abuse patient.[facility] HospitalIn the event this information is protected by the Federal Confidentiality of Alcohol and Drug Abuse Patient Records regulations: The Federal rules restrict any use of the information to criminally investigate or prosecute any alcohol or drug abuse patient.[facility] Reason for Visit (unrecogniz ed section and content) Reason Comments Received Outside Medical Records MRI Reason Onset Date Comments Refill Request 04/09/2022 Reason Comments Patient Question Orders Reason Onset Date Comments Refill Request 05/06/2022 Reason Onset Date Comments Refill Request 06/05/2022 Reason Comments Establish Care Talk about possible injection Back Pain Reason Onset Date Comments Refill Request 07/06/2022 Reason Comments [employer] - Other Reason Comments Appointment Specialty Diagnoses [...] 1ST ADD FACET JOINT [facility] [address] [place] [address] Referral ID Status Reason Start Date Expiration Date Visits Re quested Visits Authorized [id number] 1 1 Reason Comments Injection Followup Reason Comments New Patient Evaluation Specialty Diagnoses / Procedures Referred By Contac t Referred To Contact Diagnoses Lumbar spondylosis Facet arthropathy Lumbar radiculopathy Procedures CONSULT TO SPINE SURGERY OFFICE/OUTPATIENT [facility] 60-74 MINUTES Juan Jose Hurtado MD [address] [facility] [place] [address] Referral ID Status Reason Start Date Expiration Date Visits Re quested Visits Authorized [id number] Closed 09/24/2022 12/23/2022 1 1 Reason Onset [...] Care Teams (unrecognized sec tion and content) Activities Attendant Relationship Specialty Start Date End Date Ernesto Rubin, [employer] INSPECTOR [address] [place] [address] PCP - General Family Practice 04/06/16 Activities Attendant Relationship Specialty Start Date End Date Ernesto Rubin, FI[employer] INSPECTOR [address] [place] [address] PCP - General Family Practice 04/06/16 Activities Attendant Relationship Specialty Start Date End Date Ernesto Rubin, FI[employer] INSPECTOR [address] [place] [address] PCP - General Family Practice 04/06/16 Activities Attendant Relationship Specialty Start Date End Date Ernesto Rubin, FI[employer]WOR[employer] INSPECTOR [address] [place] [address] PCP - General Family Medicine 04/06/16 Activities Attendant Relationship Specialty Start Date End Date Ernesto Rubin, FI[employer]WOR[employer] INSPECTOR [address] [place] [address] PCP - General Family Medicine 04/06/16 Activities Attendant Relationship Specialty Start Date End Date Ernesto Rubin, FIREWOR[employer] INSPECTOR [address] [place] [address] PCP - General Family Medicine 04/06/16 Activities Attendant Relationship Specialty Start Date End Date Ernesto Rubin, FI[employer]WOR[employer] INSPECTOR [address] [place] [address] PCP - General Family Medicine 04/06/16 Activities Attendant Relationship Specialty Start Date End Date Ernesto Rubin, FIREWOR[employer] INSPECTOR [address] [place] [address] PCP - General Family Medicine 04/06/16 Activities Attendant Relationship Specialty Start Date End Date Ernesto Rubin, FIREWOR[employer] INSPECTOR [address] [place] [address] PCP - General Family Medicine 04/06/16 Activities Attendant Relationship Specialty Start Date End Date Ernesto Rubin, FIREWOR[employer] INSPECTOR [address] [place] [address] PCP - General Family Medicine 04/06/16 Activities Attendant Relationship Specialty Start Date End Date Ernesto Rubin, FIREWOR[employer] INSPECTOR [address] [place] [address] PCP - General Family Medicine 04/06/16 Activities Attendant Relationship Specialty Start Date End Date Ernesto Rubin, FIREWOR[employer] INSPECTOR [address] [place] [address] PCP - General Family Medicine 04/06/16 Activities Attendant Relationship Specialty Start Date End Date Ernesto Rubin, FIREWOR[employer] INSPECTOR [address] [place] [address] PCP - General Family Medicine 04/06/16 Activities Attendant Relationship Specialty Start Date End Date Ernesto Rubin, FIREWOR[employer] INSPECTOR [address] [place] [address] PCP - General Family Medicine 04/06/16 Activities Attendant Relationship Specialty Start Date End Date Ernesto Rubin, FIREWOR[employer] INSPECTOR [address] [place] [address] PCP - General Family Medicine 04/06/16 Activities Attendant Relationship Specialty Start Date End Date Ernesto Ruibn, FIREWOR[employer] INSPECTOR [address] [place] [address] PCP - General Family Medicine 04/06/16 Activities Attendant Relationship Specialty Start Date End Date Ernesto Rubin, FIREWOR[employer] INSPECTOR [address] [place] [address] PCP - General Family Medicine 04/06/16 Activities Attendant Relationship Specialty Start Date End Date Ernesto Rubin, FIREWOR[employer] INSPECTOR [address] [place] [address] PCP - General Family Medicine 04/06/16 Activities Attendant Relationship Specialty Start Date End Date Ernesto Rubin, FIREWOR[employer] INSPECTOR [address] [place] [address] PCP - General Family Medicine 04/06/16 Activities Attendant Relationship Specialty Start Date End Date Ernesto Rubin, FIREWOR[employer] INSPECTOR [address] [place] [address] PCP - General Family Medicine 04/06/16 Activities Attendant Relationship Specialty Start Date End Date Ernesto Rubin, FIREWOR[employer] INSPECTOR [address] [place] [address] PCP - General Family Medicine 04/06/16 INFORMATION SOURCE (unrecogn ized section and content) DATE CREATED AUTHOR AUTHOR'S ORGANIZ ATION 04/22/2023 [facility] DATE CREATED AUTHOR AUTHOR'S ORGANIZ ATION 08/23/2023 [facility] Continuous Active and Recently Administ ered [...] BE BASED ON THE PRIMARY CLINICAL RECORDS. [facility]. provides no warranty or guarantee of the accuracy or completeness of information in this document.
[2023-11-03 13:59] LABS: Microalbumin,Random Urine 29.2 mg/L (NO RANGE EST.); Microalbumin:Creatinine Ratio 31.7 mg/g CRE (<30 mg/g CRE)
[2023-11-03 14:04] LABS: ALB/GLOB Ratio 1.1 RATIO (0.9-2.4); AST(SGOT) 11 U/L (15-37); Alanine Aminotransfer ALT/SGPT 27 U/L (13-56); Albumin, Serum 3.7 g/dL (3.2-5.0); Alkaline Phosphatase 66 U/L (45-117); Anion Gap 2 (5-15); BUN 16 mg/dL (7-18); BUN/Creat Ratio 24.5 RATIO (10-20); Calcium,Total 9.3 mg/dL (8.5-10.1); Chloride 109 mmol/L (98-107); Cholesterol 223 mg/dL (200); Creatinine, Serum 0.65 mg/dL (0.55-1.02); EST Glomerular Filtration Rate 96 mL/min (>60); Est Glom Filt Rate - Afr Amer 117 mL/min (>60); Globulin 3.3 g/dL (2.2-4.2); Glucose 155 mg/dL (74-106); High Density Lipoprotein 53 mg/dL; Potassium 4.1 mmol/L (3.5-5.1); Sodium Level 137 mmol/L (136-145); Triglycerides 190 mg/dL; Very Low Density Lipoprotein 38 mg/dL (5-40)
[2023-11-03 14:28] LABS: Hemoglobin A1c 6.6 % (3.8-5.6)
== END | disposition home or self-care (01) ==
LOC: LAB 12:28
PROVIDERS: PCP Nurse Practitioner Family; Referring Provider Nurse Practitioner Family; Visit Provider Nurse Practitioner Family
DX: E11.9 Type 2 diabetes mellitus without complications (principal); I10 Essential (primary) hypertension; E78.5 Hyperlipidemia, unspecified; E55.9 Vitamin D deficiency, unspecified
CPT/HCPCS: 36415; 80053; 80061; 82043; 82306; 82570; 83036

== ENCOUNTER 2024-02-02 15:00 | Outpatient (RCR) | payer MEDICARE, MEDICAID, SELFPAY ==
--- NOTE | 2024-01-19 19:09 | HP.PTEVAL ---
Patient's Visit Information Visit Information Visit Information: DAVIN ARRIOLA is a 68 year old F referred to Physical Therapy by Dr. Feliciano Nixon DO with a diagnosis of OA B knees. Date of Evaluation: 01/19/24 Physical Therapist: DEEDEE Gonzalez Visit Plan Frequency: 2x /Week Duration: 6 Weeks Plan: Standing knee flexion 2X/ week for 6 weeks for B knee AROM, stretching, strengthening, gait training, functional activities with HEP HEP: LAQ, heel slides, QS Subjective Subjective: She has bone on bone of both knees. wants her to have surgery (TKR) but she wants to try some PT. She tried cortisone and it sort of helped. She tried gel shots and it only lasted 4 months and can only get those every 6 months and then they tried cortisone again and it did not work. She goes to bed with a lot of BenGay and other creams to help her get to sleep. She has restless leg syndrome and that is driving her nuts. She was put on meds and it worked for a little bit but not now and now she is on a new PD med for her restless leg syndrome. She has not tried PT for her knees before. She reports that the most pain is standing or walking or sitting too long. Restless leg bothers her knees also. She can not stand for very long and needs a cart to walk to get something out of the store. She has some N&T once in awhile. She has been told that her R IT band is twisted up. Stairs: she goes up recip and going down she might go step two and leaning against the wall. She only has a railing 1/[address] down. Pain R knee pain: Pain Intensity (Out of 10): 5 L knee pain: Pain Intensity (Out of 10): 5 Objective Objective: Gait: walks with very little bend in B knees and decreased heel to toe gait pattern and decrease stride length LE MMT: R hip flex 8.3 and L 8.6# R knee ext 14 and L 13 R knee flex 8 and L 8# R hip abd 16 and L 10 R knee AROM 112 -7 L knee AROM 97 -15 Stairs: up and down recip with 2 hand rails with hesitancy descending the stairs B Sit to stand: She is able to get up without using her arms. Balance/Special Test Scores Lower Extremity Functional Score: 19 Goals Goal 1:: I HEP Goal Time Frame: 6-8 Weeks Goal 2:: Increase B knee AROM (at the time of the eval: R knee AROM 112 -7 L knee AROM 97 -15) Goal Time Frame: 6-8 Weeks Goal 3:: Be able to walk with more knee flexion and not straight legs with gait Goal Time Frame: 6-8 Weeks Goal 4:: Be able to go up and down the stairs recip with smooth motion and less pain Goal Time Frame: 6-8 Weeks Rehabilitation Potential Rehabilitation Potential: Good Anticipated Interventions Patient/Client Instruction: Educate patient on: Condition and Plan of Care For the Purpose of:: To decrease pain, To increase ROM, To improve nutrient delivery to tissue, To improve muscle performance and motor function, To improve ability to perform ADL's, To increase tolerance to activity/condition/position, To improve performance and independence with ADL's, To decrease level of supervision to perform tasks, To improve ability of physical actions for home/community/work/leisure, To improve gait and locomotor functions, To improve health of tissue, To decrease soft tissue restriction, To increase flexibility/ROM and To improve safety with gait Therapeutic Exercise to Include: Strength training, Endurance training, Postural training, Flexibilty training, Gait and locomotor training, Neuromotor development, Passive ROM and Active ROM For the Purpose of:: To decrease pain, To increase ROM, To improve nutrient delivery to tissue, To improve muscle performance and motor function, To improve ability to perform ADL's, To increase tolerance to activity/condition/position, To improve performance and independence with ADL's, To decrease level of supervision to perform tasks, To improve ability of physical actions for home/community/work/leisure, To improve gait and locomotor functions, To improve health of tissue, To decrease soft tissue restriction and To increase flexibility/ROM Functional Training to Include: Gait training For the Purpose of:: To improve gait and locomotor functions and To improve safety with gait Text: Thank you for the opportunity to evaluate your patient. For Medicare and Medicare HMO plans, please review the plan of care and approve it. It will need to be FAXED BACK to us at [phone] for Medicare purposes. For Medicare only, by signing this I certify the plan of care. Please let me know if there are questions or concerns regarding this plan of care. Physician Signature: Date:
--- NOTE | 2024-02-15 09:49 | HP.PT.NRP(2) ---
Patient Information Patient Information: DAVIN ARRIOLA was seen in my office for initial evaluation on . The following Plan of Care was established for this patient: Last Seen Last Seen: This patient was last seen in our office . Pertinent comments regarding their Physical therapy will appear below: At this point I will be discontinuing this patient from physical therapy. I would be happy to see this patient again in the future if found appropriate by the physician. Thank you! Dafne Poon, MPT
== END 2024-02-02 19:00 | disposition home or self-care (01) ==
LOC: PT 15:00
PROVIDERS: PCP Nurse Practitioner Family; Referring Provider Orthopaedic Surgery; Visit Provider Orthopaedic Surgery
DX: M17.0 Bilateral primary osteoarthritis of knee (principal)
CPT/HCPCS: 97110; 97161

== ENCOUNTER 2024-04-29 15:03 | Emergency (ER) | payer MEDICARE, MEDICAID, SELFPAY ==
[2024-04-29 15:04] VITALS: BP 116/75; PULSE 85; RESP 16; TEMP 36.6; O2SAT 98; BMI 33.8
--- NOTE | 2024-04-29 15:14 | CT_ITS ---
INDICATION: fall EXAMINATION: CT CERVICAL SPINE - CT Spine Cervical W/O Contrast Injection TECHNIQUE: Helically acquired images were obtained of the cervical spine. 2D reformatted images were reviewed. The protocol utilizes one or more of the following dose reduction techniques: automated exposure control, adjustment of mA and/or kV according to patient size,and/or use of iterative reconstruction technique. IV Contrast dosage and agent: None. RADIATION DOSAGE (If Supplied By Facility): CTDIvol = ( 25.05 ) mGy, DLP = ( 470.68 ) mGycm COMPARISON: No relevant prior comparison study available FINDINGS: VERTEBRAE: No fracture or traumatic subluxation. No discrete lytic or blastic abnormality. Normal alignment. Normal craniocervical junction and cervicothoracic junction. DISCS and SPINAL CANAL: Disc heights are preserved. No critical stenosis. NECK SOFT TISSUES: No prevertebral soft tissue swelling. There is no cervical adenopathy. LUNG APICES: Clear. CT/Spine Cervical without Contras IMPRESSION: No evidence of acute cervical spinal fracture or spondylolisthesis. Electronically Signed: Nilson Hinson MD at 15:49 EDT ,
--- NOTE | 2024-04-29 15:14 | CT_ITS ---
INDICATION: head injury EXAMINATION: CT BRAIN - CT Head or Brain W/O Contrast Injection TECHNIQUE: Multiple axial images were obtained of the head without intravenous contrast. The protocol utilizes one or more of the following dose reduction techniques: automated exposure control, adjustment of mA and/or kV according to patient size,and/or use of iterative reconstruction technique. IV Contrast dosage and agent: None. RADIATION DOSAGE (If Supplied By Facility): CTDIvol = ( 44.99 ) mGy, DLP = ( 796.11 ) mGycm COMPARISON: MRI of brain of 03/08/2015. FINDINGS: BRAIN PARENCHYMA: No intra- or extra-axial hemorrhage. No evidence of acute infarct. No intracranial mass or mass effect. There is preservation of the coello/white matter interface. Posterior fossa structures are unremarkable. CSF SPACES: Appropriate for age. No hydrocephalus. Basal cisterns are patent. CALVARIUM, SKULL BASE, PARANASAL SINUSES AND MASTOID AIR CELLS: Clear. No discrete lytic or blastic abnormalities. ORBITS: Previous bilateral cataract surgery. CT/Brain/Head without Contrast IMPRESSION: No acute intracranial process. Electronically Signed: Nilson Hinson MD at 15:47 EDT ,
--- NOTE | 2024-04-29 15:16 | EDS_ITS ---
HPI <DILAN Enriquez - Last Filed: 04/29/24 16:05> HPI - Fall History of Present Illness Chief Complaint: Fall Narrative Narrative: 69-year-old female slipped on gravel and fell forward catching herself with both hands and striking her head on the ground. No LOC. She was able to get up and ambulate and was brought in by her . She has some minor scratches on her face and on both hands. She complains of right wrist and hand pain. She is right-hand dominant. She is not on blood thinners. [facility] <DILAN Enriquez - Last Filed: 04/29/24 16:05> [facility] Medical History Diabetes 1.5, managed as type 2 Cellulitis of right external ear Cataract Removal Degeneration of cartilage in a joint Cataract, left eye Cervicalgia Nasal septal deviation Lumbar stenosis DDD (degenerative disc disease) RLS (restless legs syndrome) GERD (gastroesophageal reflux disease) Hiatal hernia Migraine IBS (irritable bowel syndrome) Vitamin D deficiency Headache Depression Breast cancer, right Home Medications ?Medication ?Instructions ?Recorded ?Last Taken ?Type montelukast 10 mg tablet 10 mg PO DAILY 09/28/14 Unknown History omeprazole 40 mg capsule,delayed 40 mg PO DAILY 09/28/14 05/01/15 06:00 History release Coq10 100 mg PO DAILY 05/19/18 Unknown History flaxseed oil 1,000 mg capsule 2,000 mg PO DAILY 05/19/18 Unknown History garlic 1,000 mg capsule 1,000 mg PO DAILY 05/19/18 Unknown History niacin 500 mg tablet,extended 500 mg PO DAILY 05/19/18 Unknown History release 24 hr vitamin B complex-folic acid 0.4 0.4 mg PO DAILY 05/19/18 Unknown History mg tablet alpha lipoic acid 300 mg capsule 300 mg PO DAILY 01/16/21 Unknown History dicyclomine 10 mg capsule 10 mg PO TIDAC 01/16/21 Unknown History magnesium oxide 250 mg PO DAILY 01/16/21 Unknown History malic acid (bulk) 500 gm miscellaneous DAILY 01/16/21 Unknown History milk thistle 175 mg tablet 175 mg PO DAILY 01/16/21 Unknown History pramipexole 0.125 mg tablet 0.125 mg PO 01/16/21 Unknown History sertraline 50 mg tablet 50 mg PO 01/16/21 Unknown History valsartan 80 mg tablet 80 mg PO 01/16/21 Unknown History meloxicam 15 mg tablet 15 mg PO DAILY Pain #30 tabs 03/04/22 Unknown Rx Allergy/AdvReac Type Severity Reaction Status Date / Time Penicillins AdvReac Severe Rash Verified 03/01/24 15:56 Sulfa (Sulfonamide AdvReac Severe Rash Verified 03/01/24 15:56 Antibiotics) metformin AdvReac Upset Verified 03/01/24 15:56 Stomach Family History Mother CVA (cerebral vascular accident) Rheumatoid arthritis Diabetes Hypertension Heart disease Sister Diabetes Hypertension Heart disease Surgical History Hx of cholecystectomy Hx of right breast biopsy History of tubal ligation History of section History of tonsillectomy History of lumpectomy of right breast Social History Smoking Status: Former smoker second hand exposure: No alcohol intake: never substance use type: does not use caffeine: Yes what type of physical activity do you participate in: walking frequency: 1-2 times per week ROS <DILAN Enriquez - Last Filed: 04/29/24 16:05> ROS ED ROS Narrative Eyes: Negative for visual change. CVS: Negative for chest pain. Respiratory: Negative for shortness of breath. GI: Negative for nausea, vomiting. Neuro: Negative for headache. EXAM <DILAN Enriquez - Last Filed: 04/29/24 16:05> Physical Exam Narrative Exam Narrative: CONST: Patient sitting in no acute distress. EYES: Normal inspection. PERRL, EOMI. HEAD: 1 cm linear abrasion left medial eyebrow, 1 cm linear abrasion left bridge of nose. No lacerations requiring closure, no bony tenderness to the facial bones, no deformity or crepitus. No raccoon eyes or Bell sign, no nasal septal hematoma, no hemotympanum, no CSF otorrhea or rhinorrhea. NECK: Normal inspection. No midline tenderness or step-offs. RESP: No respiratory distress, CTAB. Chest wall nontender. CVS: Regular rate and rhythm, no murmur, no gallop. ABD: Soft and nontender, no guarding or rebound, nondistended. SKIN: Color normal, no rash, warm, dry, intact. EXTREMITIES: Normal appearance and full range of motion of upper and lower extremities, tender over right wrist and thumb. No deformity or crepitus. Normal motor and sensory function in median radial ulnar distributions, 2+ radial pulses and brisk cap refill. Lower extremities appear normal, nontender, 2+ DP pulses. NEURO: Alert and answering questions appropriately. PSYCH: Normal affect. Const Vital Signs: 04/29/24 15:04 04/29/24 15:09 04/29/24 16:07 Temperature 97.8 F 97.8 F Temperature Source Temporal Pulse Rate 85 62 Respiratory Rate 16 14 Respiratory Effort Normal Non-Labored Respiratory Depth Normal Blood Pressure 116/75 116/61 Blood Pressure Mean 88 79 Pulse Ox 98 99 Oxygen Delivery Method Room Air <Derik Hernandez MD - Last Filed: 04/29/24 16:24> Physical Exam Const Vital Signs: 04/29/24 15:04 04/29/24 15:09 04/29/24 16:07 Temperature 97.8 F 97.8 F Temperature Source Temporal Pulse Rate 85 62 Respiratory Rate 16 14 Respiratory Effort Normal Non-Labored Respiratory Depth Normal Blood Pressure 116/75 116/61 Blood Pressure Mean 88 79 Pulse Ox 98 99 Oxygen Delivery Method Room Air [facility] <DILAN Enriquez - Last Filed: 04/29/24 16:05> [facility] Narrative Medical decision making narrative: History gathered from: Patient and spouse Differential: Extremity contusions versus fracture Patient had a mechanical fall with minor head injury and caught herself with both hands. She is awake alert with stable vital signs. GCS 15. She has 2 small facial abrasions with no signs of major head trauma. She states her neck hurts but has no reproducible tenderness. She has minor abrasions over both palms. She is tender over the right wrist and hand without deformity or crepitus. No scaphoid tenderness. Neurovascular intact. She has no tenderness of the left upper extremity or lower extremities. CT brain and C-spine are negative. Right wrist and hand x-rays negative. Patient's wounds were cleansed and she was given an updated tetanus and Tylenol. I discussed wound care and head injury return precautions and she was discharged in stable condition. Radiography Diagnostic Testing: Clinical Impression(s) from Imaging Studies Brain CT 04/29/24 15:14 IMPRESSION: No acute intracranial process. Electronically Signed: Nilson Hinson MD at 15:47 EDT , Cervical Spine CT 04/29/24 15:14 IMPRESSION: No evidence of acute cervical spinal fracture or spondylolisthesis. Electronically Signed: Nilson Hinson MD at 15:49 EDT , Hand X-Ray 04/29/24 15:30 IMPRESSION: No evidence of acute fracture or dislocation. Degenerative arthrosis. Electronically Signed: Nilson Hinson MD at 15:53 EDT , Wrist X-Ray 04/29/24 15:30 IMPRESSION: 1. No evidence of acute fracture or dislocation. 2. 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 Electronically Signed: Nilson Hinson MD at 15:51 EDT , ED attending interpretation of right wrist hand shows no fracture or dislocation. <Derik Hernandez MD - Last Filed: 04/29/24 16:24> [facility] MDM Narrative Medical decision making narrative: History gathered from: Patient and spouse Differential: Extremity contusions versus fracture Patient had a mechanical fall with minor head injury and caught herself with both hands. She is awake alert with stable vital signs. GCS 15. She has 2 small facial abrasions with no signs of major head trauma. She states her neck hurts but has no reproducible tenderness. She has minor abrasions over both palms. She is tender over the right wrist and hand without deformity or crepitus. No scaphoid tenderness. Neurovascular intact. She has no tenderness of the left upper extremity or lower extremities. CT brain and C-spine are negative. Right wrist and hand x-rays negative. Patient's wounds were cleansed and she was given an updated tetanus and Tylenol. I discussed wound care and head injury return precautions and she was discharged in stable condition. Dr. Hernandez: I have personally performed a face to face assessment of the patient and have reviewed the MADELYN Note. I performed a substantive portion of the visit including all aspects of the following. My [place] findings include: History is mechanical fall while walking down a slight incline Exam is GCS 15. ABCs intact. Positive abrasions to face, no active bleeding. Diffuse tenderness to palpation right thenar eminence. Able to oppose thumb. Moves all fingers. Full range of motion right wrist. Medical Decision Making: Check CT brain. Check CT cervical spine. X-rays of the right hand and right wrist interpreted by myself independently shows no evidence of acute fracture. Patient has not had tetanus immunization since 2013 so was updated today. I reviewed the radiology report of the CT of the brain and cervical spine which shows no evidence of acute fracture or hemorrhage. Additionally, I reviewed the radiology reports of the x-rays of the right wrist and hand which confirm my independent interpretation. [id number] analgesics. Follow-up. Discharge. Other additions or changes: [None] History & Record Review Discussion w/independent historian: Patient Radiography Diagnostic Testing: Clinical Impression(s) from Imaging Studies Brain CT 04/29/24 15:14 IMPRESSION: No acute intracranial process. Electronically Signed: Nilson Hinson MD at 15:47 EDT , Cervical Spine CT 04/29/24 15:14 IMPRESSION: No evidence of acute cervical spinal fracture or spondylolisthesis. Electronically Signed: Nilson Hinson MD at 15:49 EDT , Hand X-Ray 04/29/24 15:30 IMPRESSION: No evidence of acute fracture or dislocation. Degenerative arthrosis. Electronically Signed: Nilson Hinson MD at 15:53 EDT , Wrist X-Ray 04/29/24 15:30 IMPRESSION: 1. No evidence of acute fracture or dislocation. 2. 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 Electronically Signed: Nilson Hinson MD at 15:51 EDT Reading Location ID and State: [facility] / [place] Tel , Service support , Discharge Plan Triage Chief Complaint: Fall ED Midlevel Provider: Carol Abernathy ED Provider: Derik Hernandez Dx/Rx/DC Orders Clinical Impression: Head injury, Abrasion of face, Right wrist sprain, Abrasion of hand, left, Abrasion of hand, right Instructions: ED Abrasion, ED Head Injury (Adult), ED Wrist Sprain Prescriptions: No Action omeprazole 40 MG capsule 40 mg PO DAILY Patient Comments: acid reflux montelukast 10 MG tablet 10 mg PO DAILY Patient Comments: asthma had toda 05/02 niacin 500 MG tablet extended release 24 hr 500 mg PO DAILY garlic 1,000 MG capsule 1,000 mg PO DAILY flaxseed oil 1,000 MG capsule 2,000 mg PO DAILY vitamin B complex-folic acid 0.4 MG tablet 0.4 mg PO DAILY Coq10 100 mg PO DAILY milk thistle 175 MG tablet 175 mg PO DAILY valsartan 80 MG tablet 80 mg PO pramipexole 0.125 MG tablet 0.125 mg PO malic acid (bulk) 500 GM powder 500 gm MC DAILY sertraline 50 MG tablet 50 mg PO dicyclomine 10 MG capsule 10 mg PO TIDAC magnesium oxide 250 MG tablet 250 mg PO DAILY alpha lipoic acid 300 MG capsule 300 mg PO DAILY meloxicam 15 mg tablet 15 mg PO DAILY Qty: 30 0RF Primary Care Provider: Ernesto Rubin NP Referrals: Ernesto Rubin NP, [facility] [Primary Care Provider] - Activity Restrictions/Additional Instructions: Your CAT scans and x-ray showed no broken bones or internal injuries. Ice and take Tylenol as needed. Print Language: Divehi Disposition Disposition: Home, Self Care Discharge Date/Time: 04/29/24 16:08
--- NOTE | 2024-04-29 15:30 | RAD_ITS ---
INDICATION: pain EXAMINATION/TECHNIQUE: X-RAY - RIGHT XR Hand Min 3 Views 3 VIEWS COMPARISON: No relevant prior comparison study available FINDINGS: SOFT TISSUES: No soft tissue swelling or gas. No radiopaque foreign body. BONES/JOINTS: No acute fracture or subluxation.. Degenerative arthrosis of the carpometacarpal joint of the thumb, distal interphalangeal joints of the second finger and of the thumb. No sclerotic or destructive changes observed. RAD/Hand Min 3 Views IMPRESSION: No evidence of acute fracture or dislocation. Degenerative arthrosis. Electronically Signed: Nilson Hinson MD at 15:53 EDT ,
--- NOTE | 2024-04-29 15:30 | RAD_ITS ---
INDICATION: pain EXAMINATION/TECHNIQUE: X-RAY - RIGHT XR Wrist Min 3 Views 3 VIEWS COMPARISON: No relevant prior comparison study available FINDINGS: SOFT TISSUES: No soft tissue swelling or gas. No radiopaque foreign body. BONES/JOINTS: No acute fracture or subluxation.. Normal alignment. Degenerative arthrosis of the trapezium first metacarpal joint. No sclerotic or destructive changes observed. RAD/Wrist min 3 Views IMPRESSION: 1. No evidence of acute fracture or dislocation. 2. 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 Electronically Signed: Nilson Hinson MD at 15:51 EDT ,
[2024-04-29] MEDS: Diphth,Pertuss(Acell),Tet Vac 0.5 ML Vial IM (15:52)
[2024-04-29 16:07] VITALS: BP 116/61; PULSE 62; RESP 14; TEMP 36.6; O2SAT 99
== END 2024-04-29 16:08 | disposition home or self-care (01) ==
PROVIDERS: Emergency Provider Emergency Medicine; PCP Nurse Practitioner Family; Visit Provider Emergency Medicine
DX: S00.91XA Abrasion of unspecified part of head, initial encounter (principal); E11.9 Type 2 diabetes mellitus without complications; S63.91XA Sprain of unspecified part of right wrist and hand, initial encounter; S60.512A Abrasion of left hand, initial encounter; S60.511A Abrasion of right hand, initial encounter; W01.0XXA Fall on same level from slipping, tripping and stumbling without subsequent striking against object, initial encounter; Z23 Encounter for immunization; Z87.891 Personal history of nicotine dependence
CPT/HCPCS: 70450; 72125; 73110; 73130; 90471; 90715; 99282

== ENCOUNTER → 2024-05-03 | Outpatient (CLI) | payer MEDICARE, MEDICAID, SELFPAY ==
[2024-05-03 14:24] LABS: ALB/GLOB Ratio 1.1 RATIO (0.9-2.4); AST(SGOT) 15 U/L (15-37); Alanine Aminotransfer ALT/SGPT 20 U/L (13-56); Alkaline Phosphatase 67 U/L (45-117); Anion Gap 7 (5-15); BUN 19 mg/dL (7-18); BUN/Creat Ratio 28.6 RATIO (10-20); Calcium,Total 9.5 mg/dL (8.5-10.1); Chloride 105 mmol/L (98-107); Cholesterol 230 mg/dL (200); Creatinine, Serum 0.66 mg/dL (0.55-1.02); EST Glomerular Filtration Rate 94 mL/min (>60); Est Glom Filt Rate - Afr Amer 114 mL/min (>60); Globulin 3.5 g/dL (2.2-4.2); Glucose 137 mg/dL (74-106); High Density Lipoprotein 53 mg/dL; Potassium 4.3 mmol/L (3.5-5.1); Protein, Total 7.5 g/dL (6.4-8.2); Sodium Level 140 mmol/L (136-145); Triglycerides 193 mg/dL; Very Low Density Lipoprotein 39 mg/dL (5-40)
[2024-05-03 14:26] LABS: Vitamin D,25 Hydroxy 69.5 ng/mL
[2024-05-03 14:29] LABS: Hemoglobin A1c 6.2 % (3.8-5.6)
[2024-05-03 14:31] LABS: Microalbumin,Random Urine 49.8 mg/L (NO RANGE EST.); Microalbumin:Creatinine Ratio 61.9 mg/g CRE (<30 mg/g CRE)
== END | disposition home or self-care (01) ==
PROVIDERS: PCP Nurse Practitioner Family; Referring Provider Nurse Practitioner Family; Visit Provider Nurse Practitioner Family
DX: I10 Essential (primary) hypertension (principal); E11.9 Type 2 diabetes mellitus without complications; E78.5 Hyperlipidemia, unspecified; E55.9 Vitamin D deficiency, unspecified
CPT/HCPCS: 36415; 80053; 80061; 82043; 82306; 82570; 83036

== ENCOUNTER → 2024-07-14 | Outpatient (CLI) | payer MEDICARE, MEDICAID, SELFPAY ==
--- NOTE | 2024-07-14 11:36 | BI_ITS ---
MAMMOGRAPHY - BILATERAL SCREENING REASON FOR EXAM: Female, 69 years old. Routine annual screening examination. PERTINENT HISTORY: Personal history of breast cancer. Prior right lumpectomy with radiation treatment. TECHNIQUE: Digital bilateral breast milagro (3D mammographic acquisition) in the CC and MLO projections. 2-D mediolateral oblique (MLO) and craniocaudad (CC) views of both breasts were obtained. CAD: Full Field Digital Mammography with Computer Added Detection was performed. COMPARISON: Comparison is made with prior study dated July 12, 2023 and July 08, 2022. FINDINGS: Breast Composition: There are scattered areas of fibroglandular density. There are no dominant masses or suspicious calcifications. Once again, the patient status post lumpectomy in the deep upper lateral aspect of the right breast. Dystrophic calcification is seen at the operative site with breast deformity. No other significant abnormalities are identified. There has been no significant change since the prior study. BI/SCRN MAMM (CAD)W/MILAGRO BILAT IMPRESSION: Stable bilateral screening mammogram. Yearly follow-up mammogram recommended. (A) ASSESSMENT CATEGORY: BIRADS Category 2: Benign. A letter regarding these results will be sent to the patient by the facility within 30 days. Approximately 10% of breast cancers are not detected by mammography. A normal mammogram should not delay biopsy of a clinically suspicious abnormality. [id number] Electronically Signed: Jose Armando Cronin MD at 12:36 EDT ,
== END | disposition home or self-care (01) ==
PROVIDERS: PCP Nurse Practitioner Family; Referring Provider Internal Medicine Hematology & Oncology; Visit Provider Internal Medicine Hematology & Oncology
DX: Z12.31 Encounter for screening mammogram for malignant neoplasm of breast (principal)
CPT/HCPCS: 77063; 77067

== ENCOUNTER → 2024-10-02 | Outpatient (CLI) | payer MEDICARE, MEDICAID, SELFPAY ==
--- NOTE | 2024-10-02 11:23 | NEURO ---
NCS and/or EMG Patient Report Ordering Doctor: Feliciano Nixon DATE OF SERVICE: 10/02/24 Clinical Summary: 69 year old female patient with symptoms of numbness and tingling that runs from the elbow down into the medial forearm/hand in the left upper extremity. An EMG/NCS of the left upper extremity was performed. Nerve Conduction Studies Summary: Nerve conduction studies of the left upper extremity were performed. There was a drop in the left ulnar-ADM CMAP amplitude greater than 10%, which is indicative of partial motor conduction block. There was a drop in the left ulnar motor conduction velocity across the elbow. Needle Examination Summary: Needle examination of select muscles of the left upper extremity was normal. Impression: This is an abnormal left upper extremity study. There is electrodiagnostic evidence of the following - 1) Left ulnar mononeuropathy at the elbow, with demyelinating features There is no electrodiagnostic evidence of a left median mononeuropathy at the wrist (carpal tunnel syndrome) or cervical radiculopathy. Multi Select Codes Neurology Neurology Interp Codes: 11061-56 Musc test done w/n test comp (interp) (1) and 75262-35 Nrv cndj test 7-8 studies (interp)
== END | disposition home or self-care (01) ==
LOC: PSN 10:24
PROVIDERS: PCP Nurse Practitioner Family; Referring Provider Orthopaedic Surgery; Visit Provider Orthopaedic Surgery
DX: G56.02 Carpal tunnel syndrome, left upper limb (principal)
CPT/HCPCS: 95886; 95910

== ENCOUNTER → 2024-11-09 | Outpatient (CLI) | payer MEDICARE, MEDICAID, SELFPAY ==
[2024-11-09 13:04] LABS: ALB/GLOB Ratio 1.2 RATIO (0.9-2.4); AST(SGOT) 10 U/L (15-37); Alanine Aminotransfer ALT/SGPT 24 U/L (13-56); Albumin, Serum 3.9 g/dL (3.2-5.0); Alkaline Phosphatase 64 U/L (45-117); Anion Gap 6 (5-15); BUN 17 mg/dL (7-18); BUN/Creat Ratio 31.7 RATIO (10-20); Calcium,Total 9.4 mg/dL (8.5-10.1); Chloride 105 mmol/L (98-107); Cholesterol 180 mg/dL (200); Creatinine, Serum 0.54 mg/dL (0.55-1.02); EST Glomerular Filtration Rate 121 mL/min (>60); Est Glom Filt Rate - Afr Amer 146 mL/min (>60); Globulin 3.2 g/dL (2.2-4.2); Glucose 140 mg/dL (74-106); High Density Lipoprotein 62 mg/dL; Potassium 4.2 mmol/L (3.5-5.1); Protein, Total 7.1 g/dL (6.4-8.2); Sodium Level 139 mmol/L (136-145); Triglycerides 120 mg/dL; Very Low Density Lipoprotein 24 mg/dL (5-40)
[2024-11-09 13:05] LABS: Vitamin D,25 Hydroxy 72.6 ng/mL
[2024-11-09 13:19] LABS: Hemoglobin A1c 6.5 % (3.8-5.6)
[2024-11-09 13:25] LABS: Microalbumin,Random Urine 37.8 mg/L (NO RANGE EST.); Microalbumin:Creatinine Ratio 47.5 mg/g CRE (<30 mg/g CRE)
== END | disposition home or self-care (01) ==
PROVIDERS: PCP Nurse Practitioner Family; Referring Provider Nurse Practitioner Family; Visit Provider Nurse Practitioner Family
DX: E11.9 Type 2 diabetes mellitus without complications (principal); E78.5 Hyperlipidemia, unspecified; I10 Essential (primary) hypertension; E55.9 Vitamin D deficiency, unspecified
CPT/HCPCS: 36415; 80053; 80061; 82043; 82306; 82570; 83036

== ENCOUNTER → 2025-05-30 | Outpatient (CLI) | payer MEDICARE, SELFPAY ==
[2025-05-30 11:02] LABS: Creatinine, Urine (random) 89.80 mg/dL (28.00-217.00); Microalbumin,Random Urine 29.6 mg/L (<20 mg/L)
[2025-05-30 11:22] LABS: AST(SGOT) 30 U/L (<=31); Alanine Aminotransfer ALT/SGPT 13 U/L (<=34); Albumin, Serum 4.4 g/dL (3.4-4.8); Alkaline Phosphatase 75 U/L (35-104); Anion Gap 13 (5-15); BUN 20 mg/dL (4-19); BUN/Creat Ratio 30.5 RATIO (10-20); Calcium,Total 9.7 mg/dL (7.6-11.0); Carbon Dioxide 25.7 mmol/L (21.0-32.0); Chloride 103 mmol/L (98-108); Cholesterol 197 mg/dL (<=200); Globulin 2.8 g/dL (2.2-4.2); Glucose 152 mg/dL (70-99); Low Density Lipoprotein Calc. 101 mg/dL; Potassium 5.0 mmol/L (3.3-5.1); Triglycerides 193 mg/dL; Very Low Density Lipoprotein 39 mg/dL (5-40); Vitamin D,25 Hydroxy 70.4 ng/mL (30-100); cholesterol:hdl ratio screen 3.42
== END | disposition home or self-care (01) ==
PROVIDERS: PCP Nurse Practitioner Family; Referring Provider Nurse Practitioner Family; Visit Provider Nurse Practitioner Family
DX: E55.9 Vitamin D deficiency, unspecified (principal); E11.9 Type 2 diabetes mellitus without complications; E78.5 Hyperlipidemia, unspecified; I10 Essential (primary) hypertension
CPT/HCPCS: 36415; 80053; 80061; 82043; 82306; 82570; 83036

== ENCOUNTER → 2025-07-16 | Outpatient (CLI) | payer MEDICARE, SELFPAY ==
--- NOTE | 2025-07-16 09:52 | BI_ITS ---
EXAM: SCRN MAMM (CAD)W/MILAGRO BILAT DATE: 07/16/2025 CLINICAL HISTORY: F, Age 70 y/o , SCREENING Prior history of right breast cancer. She had a lumpectomy with radiation therapy. TECHNIQUE: Procedure Code: [id number] Modality: MG Procedure: SCRN MAMM (CAD)W/MILAGRO BILAT COMPARISON: Prior exam(s) dated 07/14/2024, 07/12/2023, 07/08/2022, and 07/10/2021. FINDINGS: TISSUE DENSITY: There are scattered areas of fibroglandular density. Bilateral Breast Mammographic Findings: Architectural distortion, increased density and dystrophic type calcifications are seen in the superior outer, far posterior aspect of the right breast which does correspond to the previous lumpectomy and radiation site. This area appears stable. Benign-appearing macrocalcifications and round microcalcifications are seen elsewhere in the right breast. There is no mammographic abnormality in the right breast to suggest new or recurrent malignancy. Benign round microcalcifications are seen in the left breast. No suspicious masses, suspicious clustered microcalcifications, architectural distortion or secondary signs of malignancy is identified in the left breast. Benign-appearing round microcalcifications are seen in the left breast. An asymmetric density in the superior outer aspect of the left breast is noted and appears to represent residual fibroglandular tissue. BI/SCRN MAMM (CAD)W/MILAGRO BILAT IMPRESSION: Benign screening mammogram. OVERALL FINAL ASSESSMENT BI-RADS 2: BENIGN RECOMMENDATION: Routine annual follow-up in 1 Year Additional Recommendation none A letter with findings and recommendations will be mailed to the patient. Reading Location: [id number]
== END | disposition home or self-care (01) ==
LOC: OPBI 09:51
PROVIDERS: PCP Nurse Practitioner Family; Referring Provider Internal Medicine Hematology & Oncology; Visit Provider Internal Medicine Hematology & Oncology
DX: Z12.31 Encounter for screening mammogram for malignant neoplasm of breast (principal)
CPT/HCPCS: 77063; 77067